=== PATIENT | female | born 1980 | race Caucasian/White ===

== ENCOUNTER 2017-09-22 08:18 | Emergency (ER) | payer OTHER ==
[~2017-09-22] VITALS: Ht 152.4 cm; Wt 69.0 kg
[~2017-09-22 08:18] MED LIST: AEROCHAMBER MA1 EACH MISC; BACTRIM DS TAB1 EACH PO; BIAXIN500 MG PO; CEPHALEXIN500 MG PO; CLINDAMYCIN HC150 MG PO; CYCLOBENZAPRINE10 MG PO; DOXYCYCLINE HY100 MG PO; GUAIATUSSIN AC10 ML PO; IBUPROFEN PM C1 EACH PO; IBUPROFEN400 MG PO; IPRAT-ALBUT 0.5-3 ML INH; KEFLEX500 MG PO; MOTRIN IB200 MG PO; NAPROXEN500 MG PO; NORCO 5-325 TA1 EACH PO; TYLENOL325 MG PO; ULTRAM50 MG PO; VENTOLIN HFA18 GM INH
[2017-09-22] MEDS ORDERED: NAPROSYN500 MG PO (09:47)
== END 2017-09-22 10:38 | disposition home or self-care (01) ==
LOC: ED 08:18
DX: J02.9 Acute pharyngitis, unspecified (principal); J32.9 Chronic sinusitis, unspecified; I10 Essential (primary) hypertension; F17.200 Nicotine dependence, unspecified, uncomplicated; Z98.51 Tubal ligation status; Z90.89 Acquired absence of other organs; Z90.49 Acquired absence of other specified parts of digestive tract; Z88.0 Allergy status to penicillin; Z88.8 Allergy status to other drugs, medicaments and biological substances
CPT/HCPCS: 81001; 99283; J1100

== ENCOUNTER 2018-05-29 23:38 | Emergency (ER) | payer OTHER ==
[~2018-05-29] VITALS: Ht 152.4 cm; Wt 79.4 kg
--- OUTSIDE RECORDS SUMMARY | ~2018-05-29 | XMS | Clinical Summary ---
Demographics + + + | Address | [address] | | | [place] [address] | + + + | Home Phone | | + + + | Preferred Language | Unknown | + + + | Marital Status | Single | + + + | Zoroastrianism Affiliation | NON | + + + [...] Phone | + + +---------+ + | MARLENE SHAY , | ECON | Unknown | | | HILDA | | | | + + +---------+ + | Kyle ALEJANDRA | ECON | Unknown | | + + +---------+ + Care Team Providers + +------+ + | Care Baseball Inspector Name | Role | Phone | + +------+ + | Arely Rojo MD | PP | | + +------+ + Source Comments EMERSON is fully live on both EpicCare Ambulatory and EpicCare InPatient.[facility] Allergies + + + + + + | Active Allergy | Reactions | Severity | Noted | Comments | | | | | Date | | + + + + + + | Penicillins | Edema | | 10/06/19 | | | | | | 13 | | + + + + + + Current Medications + + + +---------+------+------+-------+ | Prescription | Sig. | Disp. | Refills | Star | End | Statu | | | | | | t | Date | s | | | | | | Date | | | + + + +---------+------+------+-------+ | albuterol 90 | Inhale 2 Puffs every | | | | | Activ | | mcg/actuation [...] Take 800 mg by mouth | | | | | Activ | | Oral [...] + | Respiratory failure with hypoxia (HCC) | 10/06/2012 | + + + Social History + +-------+ +--------+------+ | Tobacco Use | Types | Packs/Day | Years | Date | | | | | Used | | + +-------+ +--------+------+ | Current Every Day | | | | | | Smoker | | | | | + +-------+ +--------+------+ + + +---------+ + | Alcohol Use | Drinks/We | oz/Week | Comments | | | ek | | | + + +---------+ + | No | | | | + + +---------+ + + + + | Sex Assigned at | Date Recorded | | | | + + + | Not on file | | + + + Last Filed Vital Signs + + + + | Vital Sign | Reading | Time Taken | + + + + | Blood Pressure | 157/92 | 10/12/2012 1:28 PM PST | + + + + | Pulse | 71 | 10/12/2012 1:28 PM PST | + + + + | Temperature | 36.9 C (98.4 F) | 10/12/2012 8:08 AM PST | + + + + | Respiratory Rate | 18 | 10/12/2012 8:08 AM PST | + + + + | Oxygen Saturation | 95% | 10/12/2012 1:28 PM PST | + + + + | Inhaled Oxygen | - | - | | Concentration | | | + + + + | Weight | 84.2 kg (185 lb 10 | 10/08/2012 4:26 PM PST | | | oz) | | + + + + | Height | 162.6 cm (5' 4.02") | 10/06/2012 4:49 PM PST | + + + + | Body Mass Index | 31.85 | 10/08/2012 4:26 PM PST | + + + + Plan of Treatment + + + + + | Health Maintenance | Due Date | Last Done | Comments | + + + + + | INFLUENZA VACCINE | | | | | (FLU SHOT) | 8 | | | + + + + + Results Not on filefrom Last 3 Months Insurance + +--------+ +--------+-------+---------+ | Payer | Benefi | Subscriber | Type | Phone | Address | | | t Plan | ID | | | | | | / | | | | | | | Group | | | | | + +--------+ +--------+-------+---------+ | MILIEU TECHNICIAN MEDICAID | MILIEU TECHNICIAN | xxxxxxxx | Medica | | | | | [place] | | id | | | | | [place] | | | | | + +--------+ +--------+-------+---------+ + +--------+ +--------+ + + | Guarantor Name | Accoun | Relation to | Date | Phone | Billing Address | | | t Type | Patient | of | | | | | | | | | | + +--------+ +--------+ + + | IMANI EPSTEIN | Person | Self | [birth year] | Home: | [address] | | | al/Fam | | 1979 | +1-- | [place] [address] | | | meli | | | [address] | | + +--------+ +--------+ + + | IMANI EPSTEIN | Global | Self | [birth year] | Home: | [address] | | | OB | | 1979 | [phone]- | [place] [address] | | | | | | [address] | | + +--------+ +--------+ + +
--- OUTSIDE RECORDS SUMMARY | ~2018-05-29 | XMS | Clinical Summary ---
Demographics + + + | Address | [address] | | | [place] [address] | + + + | Home Phone | | + + + | Preferred Language | Unknown | + + + | Marital Status | Single | + + + | Christian Affiliation | NON | + + + [...] Team Providers + +------+ + | Care Impregnator And Drier Helper Name | Role | Phone | + +------+ + | Arely Rojo MD | PP | | + +------+ + Source Comments EMERSON is fully live on both EpicCare Ambulatory and EpicCare InPatient.[facility] Allergies + + + + + [...] | | | + +--------+ +--------+-------+---------+ | [employer] CAP[employer] POWER PLANT OPERATOR MEDICAID | [employer] CAPTURE POWER PLANT OPERATOR | xxxxxxxx | Medica | | | [...] | 1979 | +1-- | [place] [address] | | | meli | | | [address] | | + +--------+ +--------+ + + | IMANI EPSTEIN | Global | Self | [birth year] | Home: | [address] | | | OB | | 1979 | [phone] | [place] [address] | | | | | | [address] | | + +--------+ +--------+ + +
[~2018-05-29 23:38] MED LIST changes: +LISINOPRIL-HCT1 EAC1 PO; +NAPROSYN500 MG PO
--- OUTSIDE RECORDS SUMMARY | 2018-05-29 23:42 | XMS ---
PreManage Notification: CHARISSA ROSARIO Security Power Brake Operator Events No recent Security Events currently on file CRITERIA MET - Group Notification - [facility] - 2 Visits in 30 Days CARE PROVIDERS Obed Sotomayor MD Primary Care Current PHONE: [phone] [place] has no Care Guidelines for this patient. EPerlita VISIT COUNT (12 MO.) 3 [facility] TOTAL 3 NOTE: Visits indicate total known visits. ED/UCC VISIT TRACKING (12 MO.) 05/29/2018 23:38 [facility] [place] TYPE: Emergency COMPLAINT: - L FOOT PAIN 05/25/2018 23:39 [facility] [place] TYPE: Emergency COMPLAINT: - COUGH DIAGNOSES: - Allergy status to penicillin - Acute bronchitis, unspecified - Cough - Other long term care pharmacist (current) drug therapy - Heart failure, unspecified - Nicotine dependence, cigarettes, uncomplicated - Hypertensive heart disease with heart failure - Allergy status to other drugs, medicaments and biological substances status 09/22/2017 08:19 [facility] [place] TYPE: Emergency COMPLAINT: - COUGH/SORE THROAT DIAGNOSES: - Tubal ligation status - Acquired absence of other specified parts of digestive tract - Acquired absence of other organs - Essential (primary) hypertension - Allergy status to other drugs, medicaments and biological substances status - Acute pharyngitis, unspecified - Allergy status to penicillin - Chronic sinusitis, unspecified - Nicotine dependence, unspecified, uncomplicated INPATIENT VISIT TRACKING (12 MO.) No inpatient visits to display in this time frame [email or web address]
[2018-05-30] MEDS ORDERED: CEPHALEXIN500 MG PO (00:16)
== END 2018-05-30 00:33 | disposition home or self-care (01) ==
LOC: ED 23:38
DX: S91.332A Puncture wound without foreign body, left foot, initial encounter (principal); F17.200 Nicotine dependence, unspecified, uncomplicated; Z88.0 Allergy status to penicillin; Z88.8 Allergy status to other drugs, medicaments and biological substances; Z79.899 Other long term (current) drug therapy; Z23 Encounter for immunization; W22.09XA Striking against other stationary object, initial encounter
CPT/HCPCS: 73630; 90471; 90715; 99283

== ENCOUNTER 2018-11-20 22:33 | Emergency (ER) | payer OTHER ==
[~2018-11-20] VITALS: Ht 152.4 cm; Wt 90.7 kg
--- OUTSIDE RECORDS SUMMARY | 2018-11-20 22:36 | XMS ---
PreManage Notification: CHARISSA ROSARIO Security Lead Generation Specialist Events No recent Security Events currently on file CRITERIA MET - Group Notification CARE PROVIDERS CORNELIUS FARFAN Physician Academic Intern 05/30/2018-Current PHONE: [phone] Obed Sotomayor MD Primary Care Current PHONE: [phone] [place] has no Care Guidelines for this patient. EPerlita VISIT COUNT (12 MO.) 3 [facility] TOTAL 3 NOTE: Visits indicate total known visits. ED/UCC VISIT TRACKING (12 MO.) 11/20/2018 22:34 [facility] [place] TYPE: Emergency COMPLAINT: - EXTREMITY PAIN/INJURY 05/29/2018 23:38 [facility] [place] TYPE: Emergency COMPLAINT: - L FOOT PAIN,INJURY DIAGNOSES: - Unspecified injury of left foot, initial encounter - Striking against other stationary object, initial encounter - Encounter for immunization - Other long term care pharmacist (current) drug therapy - Puncture wound without foreign body, left foot, initial encounter - Allergy status to other drugs, medicaments and biological substances status - Nicotine dependence, unspecified, uncomplicated - Allergy status to penicillin 05/25/2018 23:[address] [facility] [place] TYPE: Emergency COMPLAINT: - COUGH DIAGNOSES: - Allergy status to penicillin - Acute bronchitis, unspecified - Cough - Other fpc (current) drug therapy - Heart failure, unspecified - Nicotine dependence, cigarettes, uncomplicated - Hypertensive heart disease with heart failure - Allergy status to other drugs, medicaments and biological substances status INPATIENT VISIT TRACKING (12 MO.) No inpatient visits to display in this time frame [id number]
[2018-11-20] MEDS ORDERED: NORCO 5-325 TA1 EACH PO (22:51)
[2018-11-20] MEDS ORDERED: CRUTCH1 EACH (22:54)
== END 2018-11-21 00:05 | disposition home or self-care (01) ==
LOC: ED 22:33
PROC: 2W3QX1Z Immobilization of Right Lower Leg using Splint (ICD-10-PCS; principal; 2018-11-20)
DX: S82.851A Displaced trimalleolar fracture of right lower leg, initial encounter for closed fracture (principal); I11.0 Hypertensive heart disease with heart failure; I50.9 Heart failure, unspecified; F17.200 Nicotine dependence, unspecified, uncomplicated; Z88.0 Allergy status to penicillin; Z88.8 Allergy status to other drugs, medicaments and biological substances; Z79.899 Other long term (current) drug therapy; W00.0XXA Fall on same level due to ice and snow, initial encounter; Y92.59 Other trade areas as the place of occurrence of the external cause
CPT/HCPCS: 29515; 73610; 99283-25; J1170

== ENCOUNTER 2018-11-27 10:25 | Day surgery (SDC) | payer OTHER ==
[~2018-11-27] VITALS: Ht 152.4 cm; Wt 90.7 kg
--- NOTE | ~2018-11-27 | OR ---
[facility] [address], [place] [address] Draft DATE OF OPERATION: 11/27/2018 SURGEON: Josiah Montiel MD PREOPERATIVE DIAGNOSIS: Trimalleolar ankle fracture. POSTOPERATIVE DIAGNOSIS: Trimalleolar ankle fracture. PROCEDURE PERFORMED: Open reduction internal fixation, right bimalleolar ankle fracture. MANAGEMENT ADVISOR: CLOVIS Smiley. Staci was present, critical for all portions of procedure. ANESTHESIA: General. BLOOD LOSS: Minimal. TOURNIQUET TIME: 50 minutes. IMPLANTS: A 7-hole one-third tubular plate with seven screws on the lateral side and 1.6 mm K-wire on the medial side. BRIEF HISTORY: Charissa is a 38-year-old female suffered a ground level fall fracturing her ankle with a slight dislocation. She had a posterior malleolus fracture that was about 15% of the surface area. Risks and benefits of operative treatment discussed with her. Because of the instability and prior dislocation, I have advised this to be the best course. She elected to proceed. Once consent was obtained, she was taken to the operating room. After adequate anesthesia, she was placed on operating room table. All downside pressure points well padded. The right leg was placed in well-padded proximal thigh tourniquet and then prepped and draped in a standard sterile fashion. The leg was exsanguinated and tourniquet inflated to 250 mmHg. The lateral side was approached 1st PATIENT NAME: CHARISSA ROSARIO JAY OPERATIVE REPORT DATE OF : 82 REPORT #: [id number] PHYSICIAN: JOSIAH MONTIEL MD PCP: NO PRIMARY CARE PHYSICIAN REPORT IS CONFIDENTIAL AND NOT TO BE RELEASED WITHOUT AUTHORIZATION [facility] [address] [place], [place] [address] Draft through a 3-inch incision, carried through skin and subcutaneous tissue. The periosteum was incised longitudinally and elevated anteriorly and posteriorly. The fracture was cleaned of all debris and was reduced and held with a clamp. A single screw was placed anterior to posterior using standard AO lag technique. The clamp was removed. The 7-hole plate was then fashioned to fit the lateral side and held with two screws in the middle portion. This checked using image intensifier, found to be satisfactorily placed. The remaining screw holes were drilled and appropriate length screws were placed. A single locking screw was placed distally. The 2nd hole from the bottom was then able to be drilled secondary to being right over the interfragmentary screw. The construct was quite stable. The wound was copiously irrigated with antibiotic solution, closed with 2-0 Monocryl in layers and lauren. Medial side was then approached through a longitudinal incision. This was again carried through the skin and subcutaneous tissue and periosteum was incised. This was a very small fragment that was reduced using the dental pick. It was held in position and 1.6 mm K-wire was advanced from the tip of the malleolus into the body of the tibia. This was checked using image intensifier and found to be adequately reduced. The K-wire was cut and bent. It was not a big enough fragment, I felt like we get screw on. The wound was again copiously irrigated with antibiotic solution, closed with 2-0 Monocryl and lauren. Radiographs showed good reduction of the fracture and appropriate length of screws. The posterior malleolus fracture was not felt to be big enough to warrant a screw and was well reduced. Both wounds were dressed with Mepilex, Ag dressing, ABD and Vernon wrap. She was placed back in a fracture boot, taken to the recovery room in satisfactory condition. All sponge, needle, and instrument counts were correct. Josiah Montiel MD BA/BRITTNEYL /[id number] Copies: ~ PATIENT NAME: CHARISSA ROSARIO OPERATIVE REPORT DATE OF : 82 REPORT #: [id number] PHYSICIAN: JOSIAH MONTIEL MD PCP: NO PRIMARY CARE PHYSICIAN REPORT IS CONFIDENTIAL AND NOT TO BE RELEASED WITHOUT AUTHORIZATION
[~2018-11-27 10:25] MED LIST changes: +CRUTCH1 EACH; +GABAPENTIN300 MG PO; +LISINOPRIL20 MG PO
--- NOTE | 2018-11-27 11:27 | NUR ---
THIS RN PRESENT OF SCIATIC BLOCK ON RIGHT LEG. PATIENT TOLERATES THE BLOCK WELL. CALL LIGHT W/IN REACH. FAMILY @ BEDSIDE.
[2018-11-27] MEDS ORDERED: SENNA LAX8.6 MG PO (13:12)
[2018-11-27] MEDS ORDERED: NORCO 7.5-3251 EACH PO (13:13)
--- NOTE | 2018-11-27 13:19 | NUR ---
11/27/18 1319 Magy Solorzano 1309- PT ARRIVES TO PACU ALERT. PT REPORTS NO PAIN OR NAUSEA AT THIS TIME. PT IS UNABLE TO FEEL HER TOES AT THIS TIME. RESP EVEN AND UNLABORED. OXYGEN SAT HIGH 90'S ON RA. 1314- PT SIPPING ON WATER. TOLERATING WELL. 1318- PT IS SLEEPING. RESP 16 EVEN AND UNLABORED.
--- NOTE | 2018-11-27 13:41 | NUR ---
ICED WATER GIVEN. FAMILY @ BS. CALL LIGHT W/IN REACH.
--- NOTE | 2018-11-27 14:19 | NUR ---
LE 1345: DIETARY CALLED AND CHEESEBURGER AND FRIES ORDERED. 1415: DIETARY ARRIVES WITH PATIENT'S FOOD. PATIENT SITTING UP IN BED EATING.
[2018-11-27] MEDS ORDERED: NARCAN4 MG NAS (14:26)
--- NOTE | 2018-11-27 15:58 | NUR ---
PATIENT AND FRIEND ASLEEP. PATIENT WAKES TO RN VOICE. PATIENT REPORTS FEET ARE STILL NUMB. PATIENT DENIES ADDITIONAL NEEDS @ THIS TIME.
--- NOTE | 2018-11-27 17:30 | NUR ---
38YR OLD WOMAN ADMITTED FROM RECOVERY TO ROOM 109. PT ALERT, STATES SHE HAS NO FEELING IN R LEG. C/O TINGLING IN L FOOT ALSO. R ANKLE REPOSITIONED AND ICE TO BRACE. ORIENTED TO CALL LIGHT. ASKED FOR DINNER. CHEESEBURGER ORDERED FROM KITCHEN. CRACKERS AND ICE WATER GIVEN. ORDERS NOTED, V/S TAKEN.
--- NOTE | 2018-11-27 18:08 | NUR ---
TWO PERSON ASSIST UP TO BSC TO TRY TO VOID, UNABLE TO VOID YET, NO WT TO R FOOT, INSTRUCTED ON USE OF FWW. REQUESTED TO SIT UP IN RECLINER, R ANKLE ELEVATED WITH PILLOWS, OXYCODONE GIVEN FOR 5/10 PAIN, TINGLING IN L FOOT GONE. NO NAUSEA, ARGUEING WITH SIGNIFICANT OTHER IN ROOM. CRYING ASKING FOR HER MOTHER. BOYFRIEND EATING SANDWICH AND IGNORING HER, SAYS SHE IS ACTING LIKE A BABY. ASKED FOR THEM TO CALM DOWN. BOYFRIEND SAYS HE WILL GO HOME AND HAVE HER MOTHER COME BACK.
--- NOTE | 2018-11-27 18:20 | NUR ---
PT EATING DINNER, DENIES ANY NAUSEA, STATES SHE MIGHT HAVE TO VOID SOON, TAKING FLUIDS WELL, RATES PAIN 5/10. KEEPING R ANKLE ELEVATED.
--- NOTE | 2018-11-27 18:55 | NUR ---
PT ABLE TO STAND AND PIVOT USING WALKER WITH ONE PERSON ASSIST TO BSC. VOIDED 600ML YELLOW URINE. PIVOT BACK TO WC, VERBALIZES UNDERSTANDING OF TOE TOUCH ONLY TO F FOOT. TO KEEP R ANKLE/LEG ELEVATED WITH ICE PACKS, REVIEWED S/SX TO REPORT TO MD AND FOLLOWUP APPOINTMENT, VERBALIZES UNDERSTANDING, ALSO HAS PERSCRIPTION FOR PAIN MEDICATION, REVIEWED INSTRUCTIONS FOR TAKING PAIN MEDICATION, DISCHARGED HOME WITH BOYFRIEND AT THIS TIME. WC TO FRONT OF HOSPITAL. A PERSONAL FRIEND IS COMING TO PICK THEM UP.
== END 2018-11-27 18:55 | disposition home or self-care (01) ==
LOC: OPS 10:25 → DS 10:25 → OPS 12:00 → MS 17:25 → OPS 18:55
PROVIDERS: Specialist
PROC: 0QSG04Z Reposition Right Tibia with Internal Fixation Device, Open Approach (ICD-10-PCS; 2018-11-27)
PROC: 0QSJ04Z Reposition Right Fibula with Internal Fixation Device, Open Approach (ICD-10-PCS; principal; 2018-11-27 12:00)
DX: S82.851A Displaced trimalleolar fracture of right lower leg, initial encounter for closed fracture (principal); Z79.899 Other long term (current) drug therapy
CPT/HCPCS: 01480; 64445; 73600; 76942; C1713; J0690; J1100; J1885; J2250; J2405; J2704; J2795; J3010; J7120

== ENCOUNTER 2019-02-21 11:24 | Emergency (ER) | payer OTHER ==
[~2019-02-21] VITALS: Ht 152.4 cm; Wt 90.7 kg
--- OUTSIDE RECORDS SUMMARY | ~2019-02-21 | XMS | Encounter Summary ---
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 Medications acetaminophen (aka TYLENOL) tablet 325-650 mg, 325-650 mg, Oral, Q4H PRN albuterol (aka PROVENTIL, VENTOLIN) 90 mcg/actuation inhaler 4 Puff, 4 Puff, Inhalation, Q4 H PRN bisacodyl (aka DULCOLAX) suppository 10 mg, 10 mg, Rectal, BID PRN ciprofloxacin (aka CIPRO) tablet 500 mg, 500 mg, Oral, BID clindamycin (aka CLEOCIN) capsule 300 mg, 300 mg, Oral, Q6H heparin injection 5,000 Units, 5,000 Units, Subcutaneous, Q8H hydrALAZINE (aka APRESOLINE) tablet 10 mg, 10 mg, Oral, QID PRN labetalol (aka NORMODYNE) oral dose 150 mg, 150 mg, Oral, Q6H lisinopril (aka PRINIVIL) tablet 10 mg, 10 mg, Oral, DAILY menthol-zinc oxide (aka CALAZIME) topical paste, , Topical, QID PRN oxyCODONE (immediate release) (aka ROXICODONE) tablet 5 mg, 5 mg, Oral, Q4H PRN senna-docusate (aka SENOKOT S) 8.6-50 mg 1 Tab, 1 Tab, Oral, BID zolpidem (aka AMBIEN) tablet 5 mg, 5 mg, Oral, HS PRN ObjectiveGeneral: A&O. Smiling, talking fast, very cheerful Abdomen: Soft. Obese. Non-tender. section scar is healing well without erythema ex udate. Musculoskeletal: Normal. Extremities: 2+ edema in LE bilaterally. Left arm with sutures in place from thrombectomy; no exudate or fluctuance but mild erythema. RE with distal 1+ edema. Labs CBC with diff last 72 hours (or 3 results) Recent Labs Basename 10/10/12 0612 10/09/12 0751 10/08/12 0247 WBC 8.0 9.0 10.8 HB 8.9* 9.0* 8.5* HCT 27.2* 27.3* 25.8* PLT 439* 424* 414* Assessment and Plan: Kendall Rosario is a 32 y.o. on POD#17 s/p RCS @35 weeks for pre-eclampsia. co urse complicated by septic thrombophlebitis of the left cephalic vein s/p thrombectomy, foll owed by respiratory distress requiring transfer to [facility], and intubation and ventilation . Medical history includes a hx of IVDU and bipolar disorder. Hypertension was noted at the time of respiratory distress, and this required management with labetalol and nicardipine dr santana. Given concern for ongoing preeclampsia she was started on magnesium sulfate, and has sin ce completed 24 hours of this treatment. HTN with Severe Preeclampsia: - S/p Magnesium sulfate infusion 1g/hr x 24 hours for seizure prophylaxis - Responding well to diuresis - Antihypertensives per Medicine team, recommended goal <150/90 - Would suggest reviewing prior records for evidence of chronic HTN - Recommend workup for other sources of hypertension, including FT4/TSH, MIAH, urine metanep hrines (realizing that pheochromocytoma is unlikely). Unlikely to be from adrenal causes wit h normal lytes. - Recommend thrombophilia workup, waiting 12 weeks for protein C and S Contraception: IUD contraindicated due to recent sepsis. Implant not ideal given thrombophl ebitis and inflammation of upper extremities. Patient desires permanent contraception and si gned an OHP consent on 09/25. Discussed safe to receive depo provera despite blood clot in ar m. Will give later today. -Will discuss interval BTL, will inbasket for family planning visit. Disposition: OB team will continue to follow Present at Rounds: Attending: Loreto Resident: Zheng Jackie Hammonds MD - 10/10/2012 3:09 PM PST OB CONSULT NOTEDate: 10/10/2012 ID: 32 y.o. on POD#16 s/p RCS @35 weeks for pre-eclampsia in [place]. cour se complicated by septic thrombophlebitis of the left cephalic vein s/p thrombectomy, follow ed by respiratory distress requiring transfer to [facility], and intubation and ventilation. Medical history includes a hx of IVDU and bipolar disorder. Hypertension was noted at the ti me of respiratory distress, and given concern for ongoing preeclampsia she was started on ma gnesium sulfate, and has since completed 24 hours of this treatment. Interval events: Received lisinopril 2.5mg and lasix 20 IV yesterday - BPs overall improved Transitioned to PO antibiotics (cipro and clindamycin) No headache or vision changes Would like to be discharged Reiterates her desire for a tubal ligation. Signed OHP form on September 25 at the hospital , not in clinic. Current Medications acetaminophen (aka TYLENOL) tablet 325-650 mg, 325-650 mg, Oral, Q4H PRN bisacodyl (aka DULCOLAX) suppository 10 mg, 10 mg, Rectal, BID PRN ciprofloxacin (aka CIPRO) tablet 500 mg, 500 mg, Oral, BID clindamycin (aka CLEOCIN) capsule 300 mg, 300 mg, Oral, Q6H heparin injection 5,000 Units, 5,000 Units, Subcutaneous, Q8H hydrALAZINE (aka APRESOLINE) tablet 10 mg, 10 mg, Oral, QID PRN labetalol (aka NORMODYNE) oral dose 150 mg, 150 mg, Oral, Q6H lisinopril (aka PRINIVIL) tablet 10 mg, 10 mg, Oral, DAILY menthol-zinc oxide (aka CALAZIME) topical paste, , Topical, QID PRN oxyCODONE (immediate release) (aka ROXICODONE) tablet 5 mg, 5 mg, Oral, Q4H PRN senna-docusate (aka SENOKOT S) 8.6-50 mg 1 Tab, 1 Tab, Oral, BID zolpidem (aka AMBIEN) tablet 5 mg, 5 mg, Oral, HS PRN Objective Systolic (24hrs), Av mmHg, Min:142 mmHg, Max:172 mmHg Diastolic (24hrs), Av mmHg, Min:74 mmHg, Max:138 mmHg Pulse Av.4 Min: 68 Max: 78 Temp Av.7 C (98.1 F) Min: 36.2 C (97.2 F) Max: 37 C (98.6 F) Resp Av.4 Min: 16 Max: 18 SpO2 Av % Min: 95 % Max: 99 % Intake/Output Summary (Last 24 hours) at 10/10/12 1510 Last data filed at 10/10/12 1100 Gross per 24 hour Intake 1310 ml Output 1600 ml Net -290 ml General: A&O. Smiling, talkative. Heart: Regular rate. No murmur, gallops, rubs. Abdomen: Soft. Obese. Non-tender. section scar is healing well without erythema ex udate. Musculoskeletal: Normal. Extremities: 2+ edema in LE bilaterally. Left arm with sutures in place from thrombectomy; no exudate or fluctuance but mild erythema. RE with distal 1+ edema. Labs CBC with diff last 72 hours (or 3 results) Recent Labs Basename 10/10/12 0612 10/09/12 0751 10/08/12 0247 WBC 8.0 9.0 10.8 HB 8.9* 9.0* 8.5* HCT 27.2* 27.3* 25.8* PLT 439* 424* 414* Assessment and Plan: Kendall Rosario is a 32 y.o. on POD#16 s/p RCS @35 weeks for pre-eclampsia. co urse complicated by septic thrombophlebitis of the left cephalic vein s/p thrombectomy, foll owed by respiratory distress requiring transfer to [facility], and intubation and ventilation . Medical history includes a hx of IVDU and bipolar disorder. Hypertension was noted at the time of respiratory distress, and this required management with labetalol and nicardipine dr santana. Given concern for ongoing preeclampsia she was started on magnesium sulfate, and has sin ce completed 24 hours of this treatment. HTN with Severe Preeclampsia: - S/p Magnesium sulfate infusion 1g/hr x 24 hours for seizure prophylaxis - Responding well to diuresis - Antihypertensives per Medicine team, recommended goal <150/90 - Would suggest reviewing prior records for evidence of chronic HTN - Recommend workup for other sources of hypertension, including FT4/TSH, MIAH, urine metanep hrines (realizing that pheochromocytoma is unlikely). Unlikely to be from adrenal causes wit h normal lytes. - Recommend thrombophilia workup, waiting 12 weeks for protein C and S Contraception: IUD contraindicated due to recent sepsis. Implant not ideal given thrombophl ebitis and inflammation of upper extremities. Patient desires permanent contraception and si gned an [facility] consent on 09/25. -Patient agreeable today for depo-provera prior to discharge. Category 2 per CDC medical el igibility criteria for well-controlled HTN, however Category 3 (risks generally outweigh mary efits) for >160/110. If patient continues along current BP trajectory this should be safe, h owever if BPs remain significantly elevated will need to have further discussion regarding t his plan. -Will discuss interval BTL with Family Planning team Disposition: OB team will continue to follow Present at Rounds: Attending: Eugenia Parnell Resident: Lainey Herrera Magy Mahoney MD - 0 10/10/2012 11:02 AM PST General Internal Medicine 4 Progress Note Hospital day 4 24 Hour Events: - Added lisinopril 2.5mg daily for BP control - Diuresis with 20mg furosemide - Transitioned to PO Abx: cipro + clinda - BP control improving; last hydralazine 6pm 10/09 - Social work consult provided pt with options for rehab facilities in [facility] Current Symptoms: Pt states that she is feeling better overall. Her LE edema has improved, as has the swellin g and redness of her RUE. She is ambulating well. No respiratory complaints. The pt reports that she is interested in entering rehab in the [place] area in an effort to regain custody of her children. Physical Examination: Last 24 hour min/max Temp: 36.2 C (97.2 F) Temp Min: 36.2 C (97.2 F) Max: 36.9 C (98.4 F) Pulse: 68 Pulse Min: 68 Max: 78 Resp: 16 Resp Min: 16 Max: 18 BP: 143/87 mmHg BP Min: 140/90 Max: 172/101 SpO2: 96 % SpO2 Min: 95 % Max: 99 % Body mass index is 31.85 kg/(m^2). Date 10/10/12 07 - 10/11/12 0659 Shift 6983-2688 5701-4161 [id number] 24 Hour Total I N T A K E P.O. 700 700 Shift Total 700 700 O U T P U T Shift Total Weight (kg) 84.2 84.2 84.2 84.2 General: Obese woman sitting comfortably in bed, NAD Lungs: Upper lung garcia clear, lower garcia with decreased air movement but no crackles at bases Heart: S1+, S2+, RRR, no M/R/G Abd: Obese, normoactive bowel sounds, soft, NT/ND Ext: RUE edema improving and not erythematous with no palpable cord, not tender LE edema 1+ to mid-garces on L and slightly worse 1+ to knee on R Laboratory: Chemistries: Last 72 Hours (or 3 results): Recent Labs Basename 10/10/12 0611 10/09/12 0751 10/08/12 0247 NA 143 141 141 K 3.7 3.9 3.8 CL 108 107 106 BICARB 27 25 27 BUN 9 10 8 CR 0.50* 0.72 0.50* GLU 107* 114* 101* CA 8.4* 8.5* 7.9* MG 1.6* 1.7* 2.5 PO4 -- -- -- CBC with diff last 72 hours (or 3 results) Recent Labs Basename 10/10/12 0612 10/09/12 0751 10/08/12 0247 WBC 8.0 9.0 10.8 HB 8.9* 9.0* 8.5* HCT 27.2* 27.3* 25.8* PLT 439* 424* 414* NEUTROPERC -- -- -- BANDPCT -- -- -- LYMPHPERC -- -- -- MONOPERC -- -- -- BASOPERC -- -- -- EOSPERC -- -- -- Brief Summary: Ms. Rosario is a young woman with a PMH significant for pre-eclampsia, IVDU, who was transfer red to the [facility] for acute respiratory failure likely 2/2 pre-eclampsia related hyperten sive emergency in the setting of recent delivery by and septic thrombophlebitis, n ow extubated and on PO antihypertensives. Assessment and Plan # Hypertensive emergency/ pre-eclampsia: Pt presented with hypoxic respiratory failure like ly 2/2 flash pulmonary edema in the setting of hypertension likely related to pre-eclampsia. Symptoms now improving with good pO2. However, she is still hypertensive and required 1 dos e hydralazine in the past 24h control SBP< 150 on oral agents. Lisinopril added yesterday an d will up-titrate. Given the patient's history of methamphetamine use, a beta brit may no t be the best long-term treatment option. - Continue labetalol 300mg Q6h, hydralazine 10mg PRN - Increase lisinopril to 10mg, re-check BMP in AM - Goal SBP< 150 - Furosemide 20mg PO today # Hypoxic Respiratory Failure: Extubated. Now resolved. Likely hypertensive emergency as ab ove. # Septic Thrombophlebitis: Pt seen in ICU by EGS s/p thrombectomy at OSH 10/01. Retention english tures remvoed 10/07. Recommended wet to dry BID. Appreciate surgery following. Given pt's poo r access, she was transitioned to PO therapy yesterday with cipro + clinda to finish course. - OSH blood Cx- 10/01= No growth 10/03= No growth - Clindamycin 300mg Q6h, Cipro 500mg BID (stop date10/15) - Abx hx: Vanc+bactrim (?); vanc+cefepime (10/01-10/05); flagyl+aztreonam+vanc (10/06-) # R arm swelling: Likely 2/2 IV infiltration earlier this hospitalization. Concern for redc urrant phlebitis, but improving on exam. Will continue to monitor. # Volume overload: Pt still with LE edema. Was diuresed with lasix with some improvement on exam. Will given another dose today, and this will likely improve with time as pre-eclampsi a resolves. This patient was staffed with Dr. Sanders who agrees with the assessment and plan. Magy Saleem Internal Medicine PGY-1 P: [id number] arrisMeenakshi erickson MD - 10/10/2012 8:54 AM PST GM 4 Staff I personally interviewed the patient, performed the rosales elements of the physical examinatio n, and personally formulated the assessment and plan with the resident. See Dr Saleem's notes f or details. Ms. Rosario is a 32 yo female with history IVDU and recent pre-eclampsia s/p presrhoda trinh in transfer with hypoxic respiratory failure, suspect pre-eclampsia vs pulmonary edema. She is a chronic methamphetamine abuser, homeless, from [place]. She is now wanting to leave the hospital and go "live with clean friends" She also said 'I have a few case therapist' We advised she makes a plan to get an interview / intake for inpatient rehab today for [facility] PE Last Vitals: BP 143/87 | Pulse 68 | Temp 36.2 C (97.2 F) | RR 16 | Ht 1.626 m (5' 4.02" ) | Wt 84.2 kg (185 lb 10 oz) | SpO2 96% | BMI 31.85 kg/(m^2) 24 Hour Vital Min/Max: Systolic (24hrs), Av mmHg, Min:140 mmHg, Max:172 mmHg Diastolic (24hrs), Av mmHg, Min:74 mmHg, Max:118 mmHg Pulse Min: 68 Max: 78 Temp Min: 36.2 C (97.2 F) Max: 36.9 C (98.4 F) Resp Min: 16 Max: 18 SpO2 Min: 95 % Max: 99 % Intake/Output Summary (Last 24 hours) at 10/10/12 1101 Last data filed at 10/10/12 0626 Gross per 24 hour Intake 965 ml Output 2550 ml Net -1585 ml CV TR murmur Lungs clear Meth Mouth findings #.Preeclampsi is improved BP control. - would consolidate her BP medications, We want to ma sanchezmize adherance #Hypoxic Respiratory failure: Now resolved. Likely was a consequence of hypertensive emerge ncy but is still very volume overloaded on exam. I wonder if she has a component of cardiomy opathy. Another confounder is drug abuse. # nmc anemia -stable #septic thrombophlebitis - surgery following and on antibiotics- will change to PO clinda/c ipro today #homeless - planning on living with "friends in [place]" #3children in foster care #polysubstance addiction - we need help of social work and care management. - this patient needs to be sent go to treatment in patient immediately from hospital if she has any chance. She is aware of this. I spent over 35 min of which 50 % was care coordination and counseling. [facility] DEPARTMENT: Hosp- [phone] Place of Service: - [id number] Date of Service: 10/09/2012 CSN: [id number] Modifiers:GC Resident Involved: Yes Suggested CPT: 17165 Subsequent Visit Detailed/High complexity 35 min Jeovanny Carpenter MD - 0 10/09/2012 4:33 PM PST INPATIENT PROGRESS NOTE Hospital Day: 3 Author: JEOVANNY KUNZ MD Attending Physician: Meenakshi Sanders MD PROBLEM LIST: 1) Preeclampsia 2) Hypoxic Respiratory Failure 3) Septic Thrombophlebitis 4) Anemia 5) Methamphetamine Use 6) Unstable Social Situation ASSESSMENT and PLAN: Kendall Rosario is a 32 y.o. Female who is transferred from [facility] with severe pre-eclamps ia characterized by malignant hypertension with evidence of end-organ damage (proteinuria) a nd acute pulmonary edema. # Severe Preeclampsia/Hypertensive Emergency: Suspect this is resolving appropriately. Bloo d pressures are now in a more stable range though still elevated. Would like to trial a low dose KENTRELL-I given her current proteinuria and may transition off of BB; she is not breast fee ding, which would - Start Lisinopril 2.5mg - Continue Labetolol 300mg # Acute Heart Failure presentation: Suspected to be biventricular given pulmonary edema and dependent edema of the extremities. Edema resolving and responsive to diuretics. Kaitlin montgomery was thought to be hypertensive emergency, but wonder if she had a predisposition by way of an existing peripartum cardiomyopathy. Arguing against this is an ECHO with a preserved EF, a normal LVID of 4.8 and no regional wall motion abnormalities. We will check a thyroid fun ction test to rule this out, but drugs would be above any rheumatologic or other causes of C M. - Lasix 20mg PRN - Strict I/Os - Avoid severe hypertension # Hypoxic Respiratory Failure: Extubated. Now resolved. Likely hypertensive emergency as ab ove. # Septic Thrombophlebitis: Healing well according to EGS. May transition to oral antibiotic s. Has a PCN allergy and so will change her to Cipro and Clinda. Will need to get her wound education tomorrow. # R arm swelling: Stable. Likely 2/2 IV infiltration earlier this hospitalization. No palpa ble cords. Afebrile. Will continue to monitor. Can use warm compresses PRN. # Volume overload: Pt still with LE edema. Was diuresed with lasix earlier this hospitaliza tion though improvement questionable. Will consider additional diuresis, but will likely imp rove with time as pre-eclampsia resolves. # Contraception: # Dispo: Will need social work assistance Code Status: Full Code My Assessment and Plan were discussed with my Attending, Dr. Sanders who agrees with the jocelyn borrego. Jeovanny Kunz MD Internal Medicine, PGY-3 Pager [phone] Interval Events: - No dyspnea currently. Lower extremity edema is better than admission but still present. H aving frequent urination but not all of it is being collected as she is making frequent trip s off the unit. Last Vitals: BP 160/99 | Pulse 78 | Temp 36.9 C (98.4 F) | RR 18 | Ht 1.626 m (5' 4.02") | Wt 84.2 k g (185 lb 10 oz) | SpO2 98% | BMI 31.85 kg/(m^2) FIO2 (%): 40 fraction of O2 (10/07/12 0739) O2 Delivery Device: None (room air) (10/09/12 0656) 24 Hour Vital Min/Max: Systolic (24hrs), Av mmHg, Min:140 mmHg, Max:216 mmHg Diastolic (24hrs), Av mmHg, Min:75 mmHg, Max:112 mmHg Pulse Av.5 Min: 73 Max: 107 Temp Av.8 C (98.3 F) Min: 36.7 C (98.1 F) Max: 36.9 C (98.4 F) Resp Av Min: 18 Max: 18 SpO2 Av.4 % Min: 94 % Max: 98 % Intake/Output Summary (Last 24 hours) at 10/09/12 1633 Last data filed at 10/09/12 1400 Gross per 24 hour Intake 1225 ml Output 2800 ml Net -1575 ml Gen: Obese, NAD HEENT: MMM, EOMI, no pallor Neck: JVP at the clavicle upright CV: Normal rate, regular rhythm; S1/S2 present; no murmurs, gallops, or rubs Resp: CTA bilaterally with equal breath sounds Abd: Protuberant, Normoactive bowel sounds; soft, non-tender, non-distended; no hepato or s plenomegaly; no masses palpated; no rebound or guarding Ext: Warm, good distal pulses, 1+ LE edema, left arm freshly wrapped with no active drainag e Skin: No breakdown, rashes, or lesions acetaminophen (aka TYLENOL) tablet 325-650 mg, 325-650 mg, Oral, Q4H PRN albuterol (aka PROVENTIL, VENTOLIN) 90 mcg/actuation inhaler 2 Puff, 2 Puff, Inhalation, Q6 H aztreonam (aka AZACTAM) IV 2 g, 2 g, Intravenous, Q6H bisacodyl (aka DULCOLAX) suppository 10 mg, 10 mg, Rectal, BID PRN heparin injection 5,000 Units, 5,000 Units, Subcutaneous, Q8H hydrALAZINE (aka APRESOLINE) tablet 10 mg, 10 mg, Oral, QID PRN labetalol (aka NORMODYNE) tablet 300 mg, 300 mg, Oral, Q6H menthol-zinc oxide (aka CALAZIME) topical paste, , Topical, QID PRN metroNIDAZOLE (aka FLAGYL) IV 500 mg, 500 mg, Intravenous, Q8H oxyCODONE (immediate release) (aka ROXICODONE) tablet 5 mg, 5 mg, Oral, Q4H PRN senna-docusate (aka SENOKOT S) 8.6-50 mg 1 Tab, 1 Tab, Oral, BID vancomycin (aka VANCOCIN) IV 1.25 g, 1.25 g, Intravenous, Q8H zolpidem (aka AMBIEN) tablet 5 mg, 5 mg, Oral, HS PRN DATA: -Labs Chemistries: Last 72 Hours (or 3 results): Recent Labs Basename 10/09/12 07510/08/1224610/07/12258 NA 141 141 145 K 3.9 3.8 3.7 CL 107 106 107 BICARB 25 27 30 BUN 10 8 7 CR 0.72 0.50* 0.62 CA 8.5* 7.9* 7.7* MG 1.7* 2.5 3.8* PO4 -- -- -- CBC with diff last 72 hours (or 3 results) Recent Labs Basename 10/09/1275010/08/1224610/07/12 025 WBC 9.0 10.8 12.0* HB 9.0* 8.5* 9.0* HCT 27.3* 25.8* 27.4* PLT 424* 414* 465* NEUTROPERC -- -- -- BANDPCT -- -- -- LYMPHPERC -- -- -- MONOPERC -- -- -- BASOPERC -- -- -- EOSPERC -- -- -- -Micro: CULTURE RESULT (no units) Date Value 10/06/2012 C Respiratory Source: Sputum Final GRAM STAIN: No squamous epithelial cells Moderate PMNS Rare Mixed leatha CULTURE RESULT: Rare Oral Leatha 10/06/2012 C Urine Source: U Midstream Final CULTURE RESULT: No growth (<1000 col/ml) after 24 hours -Imaging CXR 10/07 (post-extubation) Hydrostatic pulmonary edema with moderate right and small left pleural effusions. Meenakshi Camacho MD - 0 10/09/2012 12:54 PM PST 4 Staff I personally interviewed the patient, performed the rosales elements of the physical examinatio n, and personally formulated the assessment and plan with the resident. See Dr Saleem's notes for details. Ms. Rosario is a 32 yo female with history IVDU and recent pre-eclampsia s/p presen gayathri in transfer with hypoxic respiratory failure, suspect pre-eclampsia vs pulmonary edema. She is a chronic methamphetamine abuser, homeless, from [place]. #.Preeclampsi is improved BP control. #Hypoxic Respiratory failure: Now resolved. Likely was a consequence of hypertensive emerge ncy but is still very volume overloaded on exam. I wonder if she has a component of cardiomy opathy. Another confounder is drug abuse. # nmc anemia -stable #septic thrombophlebitis - surgery following and on antibiotics #homeless #3children in foster care #polysubstance addiction - we need help of social work and care management. - this patient needs to be sent to treatment from the hospital ideally if resources can be garnered. I spent over 35 min of which 50 % was care coordination and counseling. [facility] DEPARTMENT: Hosp- [id number] Place of Service: IP - Date of Service: 10/09/2012 CSN: [id number] Modifiers:GC Resident Involved: Yes Suggested CPT: 82618 Subsequent Visit Detailed/High complexity 35 min Jacquelyn Moses MD - 8:06 AM PST [facility] DEPARTMENT OF SURGERY EMERGENCY GENERAL SURGERY Division of Trauma and Critical Care Progress Note Note Date: 10/09/2012 Admission Date: 10/06/2012 KENDALL ROSARIO, [id number] Hospital Day #3 INTERVAL EVENTS: No acute events overnight MEDICATIONS: Reviewed PHYSICAL EXAM: Last Vitals: BP 154/100 | Pulse 107 | Temp 36.8 C (98.2 F) | RR 18 | Ht 1.626 m (5' 4.0 2") | Wt 84.2 kg (185 lb 10 oz) | SpO2 95% | BMI 31.85 kg/(m^2) 24 Hour Vital Min/Max: Systolic (24hrs), Av mmHg, Min:131 mmHg, Max:216 mmHg Diastolic (24hrs), Av mmHg, Min:76 mmHg, Max:112 mmHg Temp Av.9 C (98.4 F) Min: 36.8 C (98.2 F) Max: 37 C (98.6 F)Pulse Av.5 Min: 67 Max: 107 Resp Av Min: 14 Max: 20 SpO2 Av.6 % Min: 94 % Max: 99 % Intake/Output Summary (Last 24 hours) at 10/09/12 0806 Last data filed at 10/09/12 0600 Gross per 24 hour Intake 1420 ml Output 2175 ml Net -755 ml Gen: No acute distress Left upper extremity: longitudinal upper arm wound with packing in place, clean based, no d rainage or erythema CULTURES: None pending LABS: Recent Labs Basename 10/08/12 0910/08/1224610/07/1225810/06/12 1538 NA -- 141 145 141 K -- 3.8 3.7 4.1 CL -- 106 107 107 BICARB -- 27 30 29 BUN -- 8 7 8 CR -- 0.50* 0.62 0.53* GLU -- 101* 128* 88 CA -- 7.9* 7.7* 7.9* AST 33 -- -- 35 ALT 24 -- -- 44 AP 181* -- -- 228* TBILI 0.3 -- -- 0.7 TP 6.4 -- -- 6.2 ALB 2.3* -- -- 2.3* Recent Labs Basename 10/08/1224610/07/1225810/06/12201810/06/12 1538 WBC 10.8 12.0* 12.9* -- RBC 2.97* 3.14* 3.09* -- HB 8.5* 9.0* 8.8* -- HCT 25.8* 27.4* 27.0* -- PLT 414* 465* 454* -- NEUTROPERC -- -- -- 86* BANDPCT -- -- -- -- LYMPHPERC -- -- -- 8* MONOPERC -- -- -- 4 BASOPERC -- -- -- 0 EOSPERC -- -- -- 1 Recent Labs Basename 10/08/1292010/06/12 1538 AST 33 35 ALT 24 44 TBILI 0.3 0.7 AP 181* 228* ALB 2.3* 2.3* TP 6.4 6.2 ASSESSMENT/PLAN: Kendall Rosario is a 32 y.o. female who developed thrombophlebitis from a field IV, now s/p surgi mario debridement. Recovering well. - Continue BID wet to dry dressing changes - Antibiotics per primary team - no further surgical intervention warranted at this time - EGS will continue to follow along The patient was seen and examined with Dr. Mederos who agrees with the above assessment and p ramón. JACQUELYN RANDOLPH MD Pager [phone] [facility] [place] [address] [place] [facility] [place] [address] achaparro, MD Davon - 2012 6:12 AM PST CONSULT NOTE Date of service: 10/09/2012 ID: [id number] y.o. on POD#15 s/p Repeat Section @35 weeks for Pre-eclampsia in [facility]. course complicated by respiratory distress and septic thrombophlebitis. Patient was transferred from [place] to the [facility] MICU for acute respiratory failure requi ring intubation and ventilation. She is 2 weeks s/p section with a compli cated by pre eclampsia. Her post course was complicated by septic thrombophlebitis of the left cephalic vein s/p thrombectomy 10/01/12. Per chart review, patient is otherwise com plicated by a hx of IVDU and bipolar disorder. Unclear history as no previous records available for review at this time. Per MICU team rep ort, patient was found to have hypertension during recent admission and there was concern fo r ongoing pre eclampsia. She was started on magnesium sulfate prior to transfer to [place]. Interval Hx: Patient denies SOB/CP. She denies ESPAÑA, RUQ pain, or visual changes. Overnight events: htn Meds: Current Inpatient Medications Medication Dose Route Frequency acetaminophen (aka TYLENOL) tablet 325-650 mg 325-650 mg Oral Q4H PRN aztreonam (aka AZACTAM) IV 2 g 2 g Intravenous Q6H bisacodyl (aka DULCOLAX) suppository 10 mg 10 mg Rectal BID PRN heparin injection 5,000 Units 5,000 Units Subcutaneous Q8H HYDROmorphone (aka DILAUDID) injection 1 mg 1 mg Intravenous Q2H PRN labetalol (aka NORMODYNE) tablet 300 mg 300 mg Oral Q6H menthol-zinc oxide (aka CALAZIME) topical paste Topical QID PRN metroNIDAZOLE (aka FLAGYL) IV 500 mg 500 mg Intravenous Q8H niCARdipine in NS IV infusion 40mg/200mL piggy back 0.5-15 mg/hr Intravenous CONTINUOU S senna-docusate (aka SENOKOT S) oral solution 8.8 mg-50 mg Feeding Tube BID vancomycin (aka VANCOCIN) IV 1.25 g 1.25 g Intravenous Q8H Physical Exam: Last Vitals: BP 145/73 | Pulse 69 | Temp 36.7 C (98.1 F) | RR 11 | Ht 1.626 m (5' 4.02" ) | SpO2 95% 24 Hour Vital Min/Max: Systolic (24hrs), Av mmHg, Min:97 mmHg, Max:206 mmHg Diastolic (24hrs), Av mmHg, Min:52 mmHg, Max:138 mmHg Pulse Min: 66 Max: 84 Temp Min: 36.6 C (97.9 F) Max: 36.8 C (98.2 F) Resp Min: 8 Max: 19 SpO2 Min: 87 % Max: 100 % Intake/Output Summary (Last 24 hours) at 10/08/12 0614 Last data filed at 10/08/12 0500 Gross per 24 hour Intake 4544.5 ml Output 3075 ml Net 1469.5 ml General: Awake alert and oriented and approriate Heart: Regular rate. No murmur, gallops, rubs. Lungs: Course breath sounds. Abdomen: Soft. Obese. Non-tender. section scar is healing well without erythema ex udate. Musculoskeletal: Normal. Extremities: 2+ edema in LE bilaterally. Left arm with sutures in place from thrombectomy; no erythema or exudate. Neurological: 3+ DTR at patella, 3-6 beats of clonus on feet bilaterally. PELVIC EXAM: Deferred Labs CBC with diff last 72 hours (or 3 results) Recent Labs Basename 10/08/12 0247 10/07/12 0259 10/06/12 2019 10/06/12 1538 WBC 10.8 12.0* 12.9* -- HB 8.5* 9.0* 8.8* -- HCT 25.8* 27.4* 27.0* -- PLT 414* 465* 454* -- NEUTROPERC -- -- -- 86* BANDPCT -- -- -- -- LYMPHPERC -- -- -- 8* MONOPERC -- -- -- 4 BASOPERC -- -- -- 0 EOSPERC -- -- -- 1 Lab Results Component Value Date HCT 25.8* 10/08/2012 URICACID 4.2 10/06/2012 AST 35 10/06/2012 BUN 8 10/08/2012 CR 0.50* 10/08/2012 PLT 414* 10/08/2012 Imaging 10/06/12 X-RAY PORTABLE CHEST 1 VIEW: STUDY: IL CHEST 1 VIEW 10/06/12 15:25:00 INDICATION: Hypoxic respiratory failure COMPARISON: Outside CT and radiograph today FINDINGS: There is an ET tube approximately 2-cm from the Luke. There is an NG tube with side port at GE junction better described on same-day radiograph. There are right greater than left pleural effusions with fluid tracking along the right fissure. There is central airway thickening with mild groundglass opacities in the upper lobes. There is pulmonary vascular indistinctness bilaterally. the osseous structures are unremarkable. Cardiomediastinal silhouette is normal. IMPRESSION: Bilateral pulmonary vascular indistinctness consistent with pulmonary edema and bilateral pleural effusions. This is improved in comparison to recent radiographs. Assessment/Plan: Kendall Rosario is a 32 y.o. female admitted as a transfer from [place] for acute respi ratory distress in the context of likely pre eclampsia at 2 weeks s/p de livery. Per chart review, her course was complicated by sepsis s/p septic thrombo pheblitis of L cephalic vein s/p excision of infected vein 20-30cm. During that hospitalizat ion, the patient developed hypoxemia and HTN. She required intubation and treatment of her H TN with labetolol and nicardipine drip. Xray upon admission to [facility] shows pulmonary edema an d possible upper lobe pneumonia. TTE at outside hospital negative for cardiomyopa thy with EF 60%. Recommendations: Severe Preeclampsia: Responded well to diuresis. Suspect large component of respiratory dis tress 2/2 pulmonary edema and preeclampsia. - S/p Magnesium sulfate infusion 1g/hr x 24 hours for seizure prophylaxis due to likely sev ere pre eclampsia diagnosis - Follow clinically for signs/sx of magnesium toxicity (respiratory status, urine output, n ormal reflexes). Not necessary to check serum magnesium levels (in light of normal Cr) but a im for levels between 4-6 if obtained. - Would recommend following pre eclampsia lab set daily (Hct, plt, Cr, AST, Uric Acid). Wou ld also recommend completing a 24 hour urine protein assessment. - Defer antihypertensive management to MICU team, with recommended BP goal < 150/90 - Recommend obtaining all medical records from and delivery for review Post Issues: Contraception: Patient expresses desire for permanent contraception. Will consult family pl anning team and evaluate if patient would be good candidate for inpatient long-acting revers ible contraception option. Disposition: OB team will continue to follow this patient. Present at Rounds: Attending: Eugenia Parnell Resident: Nicolas Herrera I have examined ms rosario with Dr. Herrera and eugenia , read the note and agree with the asse ssment and plans. The majority of time for this visit, greater than 50%, was spent in couns eling and/or coordination of care secondary to delayed >2 wk post with respiratory di stress secondary to Possibly pet and hydrostatic chf with normal ef. Hx of severe pet with two prior c sections Likely chronic htn - suggest reviewing records Hx thrombophlebitis left arm Negative influenza a and b Negative cat scan for pe Normal na and k make it unlikely secondary to adrenal causes No coarctation on echo BP 150/91 | Pulse 107 | Temp 36.8 C (98.2 F) | RR 18 | Ht 1.626 m (5' 4.02") | Wt 84.2 kg (185 lb 10 oz) | SpO2 95% | BMI 31.85 kg/(m^2) Significant le edema 2+ pitting This late chf is unusual secondary to pet. Likely chronic htn component. Would suggest tfts free t4 and tsh Miah Urine metanephrines to r/o pheo (unlikely) Prothrombin, leidin v, kct, thrombophilia staley (would wait 12 weeks pp for protein c s etc) Not breast feeding and therefore suggest kentrell inhibitor, tctz or diuretic now. Desires penitentiary contraception - prior to discharge either btl or iud consideration. The majority of time for this visit, greater than 50%, was spent in counseling and/or coor dination of care secondary to bp management. The total physician floor time I spent reviewin g the chart and seeing the patient was 25 minutes. minutes. [facility] DEPARTMENT: [id number]- [facility] PERINATOLOGY PPV Place of Service:[id number] - IP Date of Service: 10/09/2012 CSN: [id number] Suggested CPT: 62308 - Subsequent, Exp Prob Foc/Mod Complex 25 min Suggested Procedure CPT: Suggested Diagnosis: Carmen Costa MD - 10/08/2012 10:22 PM PST R4 MECHANICAL MANUFACTURING TECHNICIAN Consult Note Date: 10/08/2012 Per chart review, BP 97-177/61-132 in the past 24 hours (mostly mild range). Currently on labetalol 300 mg po q 6 hrs for BP control. Pre eclampsia labs: Recent Labs Basename 10/08/12 0921 10/08/12 0247 10/07/12 0259 10/06/12201810/06/12 1831 10/06/12 153 8 WBC -- 10.8 12.0* 12.9* -- -- HB -- 8.5* 9.0* 8.8* -- -- HCT -- 25.8* 27.4* 27.0* -- -- PLT -- 414* 465* 454* -- -- AST 33 -- -- -- -- 35 URICACID -- -- -- -- 4.2 -- CR -- 0.50* 0.62 -- -- 0.53* Recommendations: - Continue labetalol for BP control with BP goal < 150/90 - Continue to follow pre eclampsia panel daily (CBC, Creatinine, Uric Acid, AST) - In terms of discharge planning, patient will likely need ongoing antihypertensive therapy at home until BP trends to normal - MFM team will see patient in the am Carmen Cunningham MD MECHANICAL MANUFACTURING TECHNICIAN PGY-4 Magy Mahoney MD - 10/08/2012 2:57 PM PST General Internal Medicine 4 Transfer Accept Note Brief Hospital Course: Ms. Rosario is a 32yo woman with a PMH significant for pre-eclampsia in 3 pregnancies, active methamphetamine use by smoking, who was transferred from [facility] for managem ent of hypoxic respiratory failure. The pt was 2 weeks post- s/p delivered e candido for pre-eclampsia. Her initial hospital course was complicated by hypertension, hyperre flexia, and proteinuria (4+). She was discharged in stable condition and then presented back to the hospital 12 hours later with acute onset of shortness of breath. She was admitted to [place] 09/28 and was found to have a L arm septic thrombophlebitis. 10/01, she was taken to the OR for thrombectomy and removal of 20cm vein. Then, 10/05, she had acute onset of hyp oxic respiratory failure which required intubation. She was transferred to [facility] for addition al care. At [facility], MFM was consulted and stated that the patient's symptoms were most consistent with severe pre-eclampsia, even in the post- period. She was treated with 24h IV Mg for se izure ppx. She was maintained on nicardipine and labetalol gtt for severe HTN treatment. For septic thrombophlebitis, the pt was first treated with vanc+cefepime (10/01- 10/05) --> flagy l+axtreonam+vanc (10/06- ). The pt's respiratory status improved and she was extubated 10/07. She was transitioned to PO labetalol with good control. Pt was stable for the floor and tra nsferred 10/08. 24 Hour Events: - Extubated - Transitioned off labtalol gtt to PO - 24 hours of Mag gtt completed - EGS consult --> LUE wound closed - Transferred to [facility] Current Symptoms: Pt states that she feels somewhat breathless and anxious, particularly regarding her phlebi tis. She is worried about swelling in her R upper arm and hand related to IV infiltration ea rlier today and reports that she has not had antibiotics since noon due to access issues. Sh e does not want her R veins to become infected as the L was. She also reports pain related t o her open L arm wound. Physical Examination: Last 24 hour min/max Temp: 36.8 C (98.2 F) Temp Min: 36 C (96.8 F) Max: 36.8 C (98.2 F) Pulse: 67 Pulse Min: 66 Max: 80 Resp: 20 Resp Min: 10 Max: 20 BP: 136/86 mmHg BP Min: 97/81 Max: 178/138 SpO2: 99 % SpO2 Min: 87 % Max: 99 % There is no weight on file to calculate BMI. General: Overweight woman, somewhat anxious, sitting up in bed, moving and breathing comfor tably Lungs: Upper lung garcia clear, lower lung garcia with decreased air movement, mild crackle s at the bases Heart: Tachycardic, regular rhythm, S1+, S2+, no m/r/g Abd: Obese, normoactive bowel sounds, soft, NT/ND Neuro: AAOx3 Ext: RUE with trace pitting edema over dorsum of hand and to elbow and with slight erythema and tenderness to palpation, LUE with large wound dressed with gauze and coban overlying english rgical site well healing, 2+ pitting edema in LE to knee R>L Laboratory: Chemistries: Last 72 Hours (or 3 results): Recent Labs Basename 10/08/12 02410/07/1225810/06/12 1538 NA 141 145 141 K 3.8 3.7 4.1 CL 106 107 107 BICARB 27 30 29 BUN 8 7 8 CR 0.50* 0.62 0.53* GLU 101* 128* 88 CA 7.9* 7.7* 7.9* MG 2.5 3.8* 1.8 PO4 -- -- 3.8 CBC with diff last 72 hours (or 3 results) Recent Labs Basename 10/08/12 02410/07/1225810/06/12201810/06/12 1538 WBC 10.8 12.0* 12.9* -- HB 8.5* 9.0* 8.8* -- HCT 25.8* 27.4* 27.0* -- PLT 414* 465* 454* -- NEUTROPERC -- -- -- 86* BANDPCT -- -- -- -- LYMPHPERC -- -- -- 8* MONOPERC -- -- -- 4 BASOPERC -- -- -- 0 EOSPERC -- -- -- 1 Brief Summary: Ms. Rosario is a young woman with a PMH significant for pre-eclampsia, IVDU, who was transfer red to the [facility] MICU for acute respiratory failure likely 2/2 pre-eclampsia related hyperten sive emergency in the setting of recent delivery by and septic thrombophlebitis, n ow extubated and on PO antihypertensives. Assessment and Plan # Hypertensive emergency/ pre-eclampsia: Pt presented with hypoxic respiratory failure like ly 2/2 flash pulmonary edema in the setting of hypertension likely related to pre-eclampsia. Symptoms now improving with good pO2 off supplemental O2, still hypertensive but with adequ ate control SBP< 150 on oral agents. Will continue oral agents as initiated in ED and antici vuong weaning down as pt's acute phase clears. - Continue labetalol 300mg Q6h, hydralazine 10mg PRN - Goal SBP< 150 # Hypoxic Respiratory Failure: Extubated. Now resolved. Likely hypertensive emergency as ab ove. # Septic Thrombophlebitis: Pt seen in ICU by EGS s/p thrombectomy at OSH 10/01. Retention english tures remvoed 10/07. Recommended wet to dry BID. Appreciate surgery following. In terms of ab x, plan per ICU was for 14d total course with possible narrowing from current vanc/flagyl/ax treonam. Will f/u cx at OSH. Access is becoming an issue in this pt, and am reticent to send her home with a PICC due to social issues, particularly drug use (17d sober from meth), tho [facility] denies IVDU. To facilitate d/c, it may be possible to transition to PO abx vs placement to complete IV abx course. - F/U OSH cx - Possible transition to PO abx vs placement for 14d course completion (10/15) - Abx hx: Vanc+bactrim (?); vanc+cefepime (10/01-10/05); flagyl+aztreonam+vanc (10/06- ) # R arm swelling: Likely 2/2 IV infiltration earlier this hospitalization, but concern for redcurrant phlebitis. Will continue to monitor. # Volume overload: Pt still with LE edema. Was diuresed with lasix earlier this hospitaliza tion though improvement questionable. Will consider additional diuresis, but will likely imp rove with time as pre-eclampsia resolves. This patient was staffed with Dr. Sanders who agrees with the assessment and plan. Magy Saleem Internal Medicine PGY-1 P: [id number] signed by Magy Saleem MD at 10/08/2012 7:56 PM PSTJeovanny Kunz MD - 10/08/2012 2:36 PM PST Brief Resident Transfer Accept Note Kendall Rosraio is a 32 y.o. Female with a history of active Methamphetamine use, prior pregnanci es complicated with pre-eclampsia, poor pre-mone nutrition, who is transferred from [facility] in [place] for management of Hypoxic Respiratory failure and pre-eclampsia following delivery of her third child on 09/22/2012. Preceding her recent delivery via c-sect ion, Kendall was experiencing her "usual" pre-eclampsia symptoms (rapid LE swelling, Headache). She tried to hold off coming in for delivery as long as possible because she admits using th e day before and was "dirty." However, eventually she was brought in for her above symptoms. Her blood pressure was as high as in the 210's systolic, she was hyper reflexive and 4+ pro teinuria. She underwent a emergent and was kept in the hospital with difficult to treat hypertension in the following days. She was discharged one week later in stable condit ion, and within 12 hours of leaving the hospital, she had acute onset dyspnea that prompted a return via ambulance. Her second hospital course was complicated by septic thrombophlebiti s of the left cephalic vein s/p thrombectomy 10/01/12. She was started on Vanc and Cefepime f rom 10/01-10/05, changed briefly to Vanc and Zozyn but due to a reported PCN allergy switch to her current regimen of Vanc and Aztreonam and Flagyl for sepsis/thrombophlebitis. .She also had an acute respiratory decline that resulted in intubation. Imaging suggested development of pulmonary edema. She was then transferred here to the [facility] ICU for management of her res piratory status and blood pressure elevation. Diuresis resolved her hypoxic failure and was extubated. She was also transitioned off of a nicardipine and labetalol drip to PO labetalol . A magnesium infusion was run and then stopped for treatment of preeclampsia. Abx changes w ere made as mentioned before. Given her stability, she has now been sent down to the wards. O: Last Vitals: BP 149/81 | Pulse 77 | Temp 37 C (98.6 F) | RR 20 | Ht 1.626 m (5' 4.02") | Wt 84.2 kg (185 lb 10 oz) | SpO2 98% | BMI 31.85 kg/(m^2) 24 Hour Vital Min/Max: Systolic (24hrs), Av mmHg, Min:97 mmHg, Max:178 mmHg Diastolic (24hrs), Av mmHg, Min:61 mmHg, Max:138 mmHg Pulse Min: 66 Max: 80 Temp Min: 36 C (96.8 F) Max: 37 C (98.6 F) Resp Min: 10 Max: 20 SpO2 Min: 87 % Max: 99 % Intake/Output Summary (Last 24 hours) at 10/08/12 1800 Last data filed at 10/08/12 1100 Gross per 24 hour Intake 3662.5 ml Output 1425 ml Net 2237.5 ml Gen: Obese, NAD HEENT: MMM, EOMI, no pallor Neck: JVP at the clavicle upright CV: Normal rate, regular rhythm; S1/S2 present; no murmurs, gallops, or rubs Resp: CTA bilaterally with equal breath sounds Abd: Protuberant, Normoactive bowel sounds; soft, non-tender, non-distended; no hepato or s plenomegaly; no masses palpated; no rebound or guarding Ext: Warm, good distal pulses, trace-1+ LE edema Skin: No breakdown, rashes, or lesions Lab Results Component Value Date WBC 10.8 10/08/2012 HB 8.5 10/08/2012 HCT 25.8 10/08/2012 PLT 414 10/08/2012 MCV 87.0 10/08/2012 RDW 15.8 10/08/2012 Lab Results Component Value Date NA 141 10/08/2012 K 3.8 10/08/2012 CL 106 10/08/2012 BICARB 27 10/08/2012 BUN 8 10/08/2012 CR 0.50 10/08/2012 GLU 101 10/08/2012 CA 7.9 10/08/2012 Assessment and Plan: Kendall Rosario is a 32 y.o. Female who is transferred from [facility] with severe pre-eclamps ia characterized by malignant hypertension with evidence of end-organ damage (proteinuria) a nd acute pulmonary edema. She has recovered appropriately and has the clinical stability to warrant transfer to the wards. Her respiratory status is stable with no continuing oxygen ne eds. Her blood pressures are at goal and under 140. She has no acute complaints and her lowe r extremity edema is improved. She has been strongly counseled to cease Methamphetamine use not withstanding the thought of future pregnancies. We anticipate a short stay as her pre-ec lampsia has now resolved and will arrange for possible discharge soon assuming we can arrang e for appropriate antibiotics (but would strongly avoid a PICC) and follow up with surgery. Rest per Dr. Saleem's transfer accept note. This patient will be staffed with Dr. Sanders in the next 24 hours. Jeovanny Kunz MD Internal Medicine Resident, PGY-3 Pager [phone] Vero Hunter MD - 10/08/2012 8:00 AM PST MICU Attg. Progress Note Overnight Events: Labetalol drip titrated off and pt started on labetalol PO, nicardipine d rip titrated off as of 6am. BPs improved. Completed Mg drip. A/P: 32F 2-3 weeks s/p for pre-eclampsia, now here with severe hypertension, hypo xic respiratory failure, consistent with pre-eclampsia. Neuro: doing well, appears at baseline. H/o bipolar disease, has been off of mood stabiliz er during . Pt reports starting on zoloft recently, but this seems not a great option for BIpolar dis ease. H/o IVDU with meth use immediately prior to delivery. CV: Pre-eclampsia, BPs under much better control on PO labetalol, now off of drips. BP goa ls < 160s. Completed Mg drip. Pulm: sats great on room air. Hypoxemia has improved with treatment of her hypertension. Repeat echo showed normal size/function, NO cardiomyopathy. ID: Afebrile, WBC coming down. Vanco/aztreonam/flagyl (PCN allergy) for sepsis/thrombophle bitis. No new culture data ([facility] for outside hospital). Needs a 14d course of broad abx, would avoid PICC line in patient with recent IVDU. Renal: Cr stable. GI/Liver: No acute issues. MFM should continue to follow upon discharge from ICU. EGS following her arm wound. Stable for transfer out of the ICU. I examined the patient myself. I have read and agree with the plan as outlined in the resi dent note. Critical Care Time = 35 min exclusive of procedures. Last Vitals: BP 156/132 | Pulse 72 | Temp 36.7 C (98.1 F) | RR 19 | Ht 1.626 m (5' 4.02 ") | SpO2 95% 24 Hour Vital Min/Max: Systolic (24hrs), Av mmHg, Min:97 mmHg, Max:199 mmHg Diastolic (24hrs), Av mmHg, Min:52 mmHg, Max:138 mmHg Pulse Min: 66 Max: 80 Temp Min: 36.6 C (97.9 F) Max: 36.8 C (98.2 F) Resp Min: 10 Max: 19 SpO2 Min: 87 % Max: 100 % Intake/Output Summary (Last 24 hours) at 10/08/12 0800 Last data filed at 10/08/12 0500 Gross per 24 hour Intake 4887.5 ml Output 2625 ml Net 2262.5 ml Current Facility-Administered Medications Medication Dose Route Frequency Provider Last Rate Last Dose acetaminophen (aka TYLENOL) tablet 325-650 mg 325-650 mg Oral Q4H PRN Darnell schultz MD,PhD 325 mg at 10/08/12 0530 aztreonam (aka AZACTAM) IV 2 g 2 g Intravenous Q6H Madelyn Watson MD 2 g at 0 10/08/12 0538 bisacodyl (aka DULCOLAX) suppository 10 mg 10 mg Rectal BID PRN Jeovanny Aguero MD heparin injection 5,000 Units 5,000 Units Subcutaneous Q8H Jeovanny Aguero MD 5,000 Units at 10/08/12 0740 HYDROmorphone (aka DILAUDID) injection 1 mg 1 mg Intravenous Q2H PRN Cezar Ray MD 1 mg at 10/08/12 0740 labetalol (aka NORMODYNE) tablet 300 mg 300 mg Oral Q6H Aj Amaro MD 300 mg at 10/08/12 0234 menthol-zinc oxide (aka CALAZIME) topical paste Topical QID PRN Jeovanny Aguero MD metroNIDAZOLE (aka FLAGYL) IV 500 mg 500 mg Intravenous Q8H Madelyn Watson MD 500 mg at 10/08/12 0740 niCARdipine in NS IV infusion 40mg/200mL piggy back 0.5-15 mg/hr Intravenous CONTINUOU S Aj Amaro MD 1 mg/hr at 10/08/12 0500 senna-docusate (aka SENOKOT S) oral solution 8.8 mg-50 mg Feeding Tube BID Jeovanny Aguero MD vancomycin (aka VANCOCIN) IV 1.25 g 1.25 g Intravenous Q8H Madelyn Watson MD 1.25 g at 10/08/12 0126 Chemistries: Last 72 Hours (or 3 results): Recent Labs Basename 10/08/12 0247 10/07/1225810/06/12 1538 NA 141 145 141 K 3.8 3.7 4.1 CL 106 107 107 BICARB 27 30 29 BUN 8 7 8 CR 0.50* 0.62 0.53* GLU 101* 128* 88 CA 7.9* 7.7* 7.9* MG 2.5 3.8* 1.8 PO4 -- -- 3.8 CBC with diff last 72 hours (or 3 results) Recent Labs Basename 10/08/12 02410/07/12 02510/06/12201810/06/12 1538 WBC 10.8 12.0* 12.9* -- HB 8.5* 9.0* 8.8* -- HCT 25.8* 27.4* 27.0* -- PLT 414* 465* 454* -- NEUTROPERC -- -- -- 86* BANDPCT -- -- -- -- LYMPHPERC -- -- -- 8* MONOPERC -- -- -- 4 BASOPERC -- -- -- 0 EOSPERC -- -- -- 1 Liver Tests: Last 72 hours (or 3 results) Recent Labs Basename 10/06/12 1538 AST 35 ALT 44 TBILI 0.7 AP 228* ALB 2.3* TP 6.2 Up to Last 5 ABGs in 72 hours: Recent Labs Basename 10/06/12 1824 10/06/12 1538 PH 7.39 7.37 PCO2 49* 52* PO2 84 51* HCO3 29* 29* [id number] 30* 31* [id number] 96.9 83.7* [id number] -- -- FIO2 .4 .5 Lab Results Component Value Date INRPT 1.07 10/06/2012 Lab Results Component Value Date LACTICACID 0.8 10/06/2012 No Data Recorded Last Last CBG's POC Lab Results Component Value Date GLU 101* 10/08/2012 GLU 128* 10/07/2012 GLU 88 10/06/2012 CXR * 10/07/2012 Value: STUDY: CHEST 1 VIEW 10/07/12 06:03:00 COMPARISON: Chest x-ray one view 10/06/2012 HISTORY: Hypoxic respiratory failure FINDINGS: An endotracheal tube tip now terminate s 4.5 cm proximal to the luke within the trachea. An enteric tube tip terminates beneath the diaphragm and outside the [id number]. A mild groundglass opacification the lungs wit h vascular indistinctness and septal lines is present. Moderate volume layering right and s mall left pleural effusions are evident. The cardia mediastinal silhouette is unchanged. R egional osseous structures are unremarkable. IMPRESSION: Hydrostatic pulmonary edema wit h moderate right and small left pleural effusions. Attending Radiologists: Willian doherty M.D. Author: Ezio Prabhakar M.D. I have personally viewed this procedure/exam, reviewed this report, and made changes to it where appropriate. Final/Electronically signed / Willian Mcghee 10/07/2012 14:21 PM [facility] DEPARTMENT: [facility], [facility]- [id number] Place of Service: Date of Service: 10/08/2012 CSN: [id number] Modifiers:GC Resident Involved: yes Suggested CPT: 54983 Critical Care, Initial 30-74 minutes Cristi Landis, [facility] J - 10/08/2012 7:19 AM PST . MICU PROGRESS NOTE AND TRANSFER SUMMARY Author: MADELYN WATSON MD Attending Physician: Vero Galarza MD PCP: Kiana Rojo MD HOSPITAL COURSE: Ms. Rosario is a 32 yo female with history of IVDU, bipolar II and 2 weeks post s/p C- section for pre-eclampsia transferred from [place] in [place] for management of hypoxi c respiratory failure requiring intubation on 10/06. Ms. Rosario was admitted to [place] ([place]) on 09/28 for respiratory distress. She was noted to develop septic thrombophelitis and was taken to the OR on 10/01 for thrombectomy in which 20cm of vein was resected. Before the surgery she had been on Bactrim and Vanc for an unspecified amount of time and cultures from the wound have not grown a bug. Overnight on 10/05 she experienced acute hypoxic respira tory failure over the course of a couple hours necessitating intubation. Transferring team c oncerned about congestive heart failure and concerned about an aspiration event. She was diu resed with Lasix though no clear outcome or improvement noted. She had severe hypertension t hat was being treated with a nicardipine and labetolol drip. Upon arrival to the MICU on 10/06, pt was only on propofol gtt but required nicardipine and labetalol to be restarted over the course of the night. MFM was consulted and agreed that s evere pre-eclampsia was the most likely diagnosis, even post-. They recommended a 24 h our magnesium infusion for seizure prophylaxis which was completed. She was able to be extub ated on 10/07 after control of blood pressure and minimal diuresis. ETT on 10/07 showed a norm al LV EF and size leading us to conclude hypoxic respiratory failure was secondary to hypert ensive emergency in the setting of pre-eclampsia. She was able to be titrated off the anti-h ypertensives drips with the addition of labetalol po. The patient was also seen by EGS for wound closure. They removed her retention sutures on 10/07 and continue to actively following the patient. Antibiotic choice continued to be broad with lack of culture data to guide narrowing. Patient initially received Vanc/Cefepime from 10/01 - 10/05. On arrival on 10/06 she was switched to Vanc/Zosyn before it was noted that she had a reported penicillin allergy. She did not have any allergic reaction noted but was swi tched to Flagyl/Aztreonam. The plan is for a total 14 day course and could be narrowed to gr am positive coverage if there is no concern of retained placenta. 24hr events: -Extubated -Transitioned off labtalol gtt to PO -24 hours of Mag gtt completed -EGS consult --> LUE wound closed Subjective: -Feels good "would go home if you told me too". Interested in Current drips: -none Antibiotics: Vanc Flagyl Aztreonam Current facility-administered medications:acetaminophen (aka TYLENOL) tablet 325-650 mg, 32 5-650 mg, Oral, Q4H PRN, Darnell Bee MD,PhD, 325 mg at 10/08/12 0530 aztreonam (aka AZACTAM) IV 2 g, 2 g, Intravenous, Q6H, Madelyn Watson MD, 2 g at 0538 bisacodyl (aka DULCOLAX) suppository 10 mg, 10 mg, Rectal, BID PRN, Jeovanny Aguero MD heparin injection 5,000 Units, 5,000 Units, Subcutaneous, Q8H, Jeovanny Aguero MD, 5,000 Units a t 10/07/12 2339 HYDROmorphone (aka DILAUDID) injection 1 mg, 1 mg, Intravenous, Q2H PRN, Cezar Ray MD, 1 mg at 10/08/12 0301 labetalol (aka NORMODYNE) tablet 300 mg, 300 mg, Oral, Q6H, Aj Amaro MD, 300 mg a t 10/08/12 0234 menthol-zinc oxide (aka CALAZIME) topical paste, , Topical, QID PRN, Jeovanny Aguero MD metroNIDAZOLE (aka FLAGYL) IV 500 mg, 500 mg, Intravenous, Q8H, Madelyn Watson MD, 5 00 mg at 10/07/12 2339 niCARdipine in NS IV infusion 40mg/200mL piggy back, 0.5-15 mg/hr, Intravenous, CONTINUOUS, Aj Amaro MD, 1 mg/hr at 10/08/12 0500 senna-docusate (aka SENOKOT S) oral solution 8.8 mg-50 mg, , Feeding Tube, BID, Jeovanny Aguero MD vancomycin (aka VANCOCIN) IV 1.25 g, 1.25 g, Intravenous, Q8H, Madelyn Watson MD, 1. 25 g at 10/08/12 0126 Allergies Allergen Reactions Penicillins Swelling Physical Exam: BP 156/132 | Pulse 72 | Temp 36.7 C (98.1 F) | RR 19 | Ht 1.626 m (5' 4.02") | SpO2 95% Systolic (24hrs), Av mmHg, Min:97 mmHg, Max:206 mmHg Diastolic (24hrs), Av mmHg, Min:52 mmHg, Max:138 mmHg Pulse Av.5 Min: 66 Max: 80 Temp Av.7 C (98.1 F) Min: 36.6 C (97.9 F) Max: 36.8 C (98.2 F) Resp Av.4 Min: 9 Max: 19 SpO2 Av.5 % Min: 87 % Max: 100 % Intake/Output Summary (Last 24 hours) at 10/08/12 0719 Last data filed at 10/08/12 0500 Gross per 24 hour Intake 4464.5 ml Output 2750 ml Net 1714.5 ml Last Hemodynamic Values- 24 hours (Caution: data from last value documented in flowsheet row, may not be from concurrent read ings) BP Mean: 138 mmHg (10/08/12 0645) Last Ventilator Settings:24 hours (Caution: data from last value documented in flowsheet row, may not be from concurrent time s) FIO2 (%): 40 fraction of O2 (10/07/12 07) Total Rate: 12 bpm (10/07/12738) Spon VT: 600 ml (10/07/12738) VE: 6 L/MIN (10/07/12738) PSV: 5 cm H2O (10/07/12738) PEEP: 5 cm H2O (10/07/12738) RSBI at 5 min: 24 (10/07/12738) SBT pass or fail: Pass SBT, ready for extubation (10/07/12738) General Appearance: awake alert, pressured speech, pleasant HEENT:sclera anicteric, poor dentition Respiratory: clear Cardiovascular: RRR, no m/r/g Gastrointestinal: soft, nt, nd, bs +, obese, scar looks c/d/i Extremitites: wwp, no edema, no clubbing, distal pulses intact L arm wrapped, C/D/I Skin: no rash Intravascular Catheters: PIV x1 Data: Chemistries: Last 72 Hours (or 3 results): Recent Labs Basename 10/08/1224610/07/1225810/06/12 1538 NA 141 145 141 K 3.8 3.7 4.1 CL 106 107 107 BICARB 27 30 29 BUN 8 7 8 CR 0.50* 0.62 0.53* CA 7.9* 7.7* 7.9* MG 2.5 3.8* 1.8 PO4 -- -- 3.8 CBC with diff last 72 hours (or 3 results) Recent Labs Basename 10/08/1224610/07/1225810/06/12201810/06/12 1538 WBC 10.8 12.0* 12.9* -- HB 8.5* 9.0* 8.8* -- HCT 25.8* 27.4* 27.0* -- PLT 414* 465* 454* -- NEUTROPERC -- -- -- 86* BANDPCT -- -- -- -- LYMPHPERC -- -- -- 8* MONOPERC -- -- -- 4 BASOPERC -- -- -- 0 EOSPERC -- -- -- 1 Liver Tests: Last 72 hours (or 3 results) Recent Labs Basename 10/06/12 1538 AST 35 ALT 44 TBILI 0.7 AP 228* ALB 2.3* TP 6.2 Lab Results Component Value Date INRPT 1.07 10/06/2012 Up to Last 5 ABGs in 72 hours: Recent Labs Basename 10/06/12 1824 10/06/12 1538 PH 7.39 7.37 PCO2 49* 52* PO2 84 51* HCO3 29* 29* [id number] 30* 31* Q8QCKZKO 96.9 83.7* F4IMLNMNP -- -- FIO2 .4 .5 CULTURE DATA: Outside culture(updated 10/07): bCx 10/01 and 10/03. NGTD IMAGING: No new imaging Assessment: Ms. Rosario is a 32 yo female with history IVDU and recent pre-eclampsia s/p presen gayathri in transfer with hypoxic respiratory failure, suspect pre-eclampsia vs pulmonary edema Plan by system: Neuro: #Sedation/pain: off at this time. Will continue dilaudid boluses prn #Bipolar: Home meds, per records available, only appears to be on zoloft. Hesitate to fill this without a mood stabilizer. Will clarify with patient or her pharmacy what her meds are . She reports seeing "Artur Garcia" in [place], her [facility]HP though was not able to Google him. W ill need to clarify CV: Pre-eclampsia: Much improved BP control. Have asked MFM for input reagarding natural histor y of post pre-e and usual BP management. -s/p Magnesium gtt x24 hours -MFM consult, appreciate recs -Goal SBP <150 -Labetolol 300mg PO Q6H Pulm: #Hypoxic Respiratory failure: Now resolved. Likely was a consequence of hypertensive emerge ncy. GI: #previous concern of UGIB: based on output from NGT. No evidence of bleeding based on CBC. NGT output appears more bilious, will stop PPI and frequent CBC checks. -CBC daily Renal: No acute issues Hem: #anemia: normocytic. Not a critical issue at this time. #leukocytosis: see ID ID: #Septic thrombophlebitis: Treating as above. Source looks to be controlled. Transitioned to Vanc/Aztreonam/Flagyl. At admission, before allergies were verified, she did receive one do se of Zosyn, which she is listed as allergic to penicillins. Pt was examined and there was n o obvious reaction noted. No treatment of allergic reaction needed. -PLanned treatement course from 10/01 - 10/15. Abx choices as discussed in transfer summary -follow up outside cultures Fluid/Electrolytes/Nutrition: #Volume overload: Resolved. Endo: #No acute issues Skin: #No acute issues F - NPO A - dilaudid S - n/a T - Heparin SQ H - n/a U - n/a G - N/a Dispo: Transfer to floor CODE: Full Pt was staffed with MICU Attending, Dr. Galarza, who agrees with the above A/P. MADELYN WATSON MD Internal Medicine PGY1 Pager [phone] Vero Cuello MD - 10/08/2012 2:27 AM PSTI saw the patient on rounds and agree with the assesment and plan as outlined in this note and participated in the planning of the patient's care. Vero Mederos MD [id number] Mario Huffman MD - 10/08/2012 2:27 AM PST EMERGENCY GENERAL SURGERY ICU PROGRESS NOTE: Attending Physician: Vero Galarza MD 10/08/2012 24 HR EVENTS: Sutures in LUE removed by EGS at bedside and wound packed. Patient reports she is doing we ll and feels hungry. ACTIVE PROBLEMS AND PLAN: Kendall Rosario is a 32 y.o. female who developed thrombophlebitis from a field IV, now s/p surgi mario debridement. EGS consulted for wound care. - Continue BID wet to dry dressing changes, MICU RNs are assisting with this and their help is greatly appreciated - Antibiotics per primary team - Dispo: per MICU team The above plan is formulated from the data below MEDICATIONS: Current facility-administered medications:acetaminophen (aka TYLENOL) tablet 325-650 mg, 32 5-650 mg, Oral, Q4H PRN, Darnell Bee MD,PhD aztreonam (aka AZACTAM) IV 2 g, 2 g, Intravenous, Q6H, Madelyn Watson MD, 2 g at 2339 bisacodyl (aka DULCOLAX) suppository 10 mg, 10 mg, Rectal, BID PRN, Jeovanny Aguero MD heparin injection 5,000 Units, 5,000 Units, Subcutaneous, Q8H, Jeovanny Aguero MD, 5,000 Units a t 10/07/12 2339 HYDROmorphone (aka DILAUDID) injection 1 mg, 1 mg, Intravenous, Q2H PRN, Cezar Ray MD, 1 mg at 10/07/12 2255 labetalol (aka NORMODYNE) tablet 300 mg, 300 mg, Oral, Q6H, Aj Amaro MD menthol-zinc oxide (aka CALAZIME) topical paste, , Topical, QID PRN, Jeovanny Aguero MD metroNIDAZOLE (aka FLAGYL) IV 500 mg, 500 mg, Intravenous, Q8H, Madelyn Watson MD, 5 00 mg at 10/07/12 2339 niCARdipine in NS IV infusion 40mg/200mL piggy back, 0.5-15 mg/hr, Intravenous, CONTINUOUS, Aj Amaro MD, Last Rate: 25 mL/hr at 10/08/12 0200, 5 mg/hr at 10/08/12 0200 senna-docusate (aka SENOKOT S) oral solution 8.8 mg-50 mg, , Feeding Tube, BID, Jeovanny Aguero MD vancomycin (aka VANCOCIN) IV 1.25 g, 1.25 g, Intravenous, Q8H, Madelyn Watson MD, 1. 25 g at 10/08/12 0126 VITAL SIGNS: Pulse Av.6 Min: 70 Max: 98 Temp Av.9 C (98.5 F) Min: 36.6 C (97.9 F) Max: 37.8 C (100 F) Resp Av.9 Min: 8 Max: 19 SpO2 Av.9 % Min: 87 % Max: 100 % Intake/Output Summary (Last 24 hours) at 10/08/127 Last data filed at 10/08/12 0130 Gross per 24 hour Intake 4189.5 ml Output 3525 ml Net 664.5 ml VENT: Last Ventilator Settings:24 hours (Caution: data from last value documented in flowsheet row, may not be from concurrent time s) FIO2 (%): 40 fraction of O2 (10/07/12738) Total Rate: 12 bpm (10/07/12738) Spon VT: 600 ml (10/07/12738) VE: 6 L/MIN (10/07/12738) PSV: 5 cm H2O (10/07/12738) PEEP: 5 cm H2O (10/07/12738) RSBI at 5 min: 24 (10/07/12738) Proceed to 30 min SBT: Yes, proceed to 30 min SBT (10/07/12605) RSBI at 30 min: 26.67 (10/07/12605) SBT pass or fail: Pass SBT, ready for extubation (10/07/12738) Lab Results Component Value Date PH 7.39 10/06/2012 PCO2 49* 10/06/2012 PO2 84 10/06/2012 HCO3 29* 10/06/2012 FIO2 .4 10/06/2012 Lab Results Component Value Date ABGEXCESS 3.5 10/06/2012 PHYSICAL EXAM: Left upper extremity: longitudinal upper arm wound with packing in place, clean based, no d rainage or erythema LABS: Chemistries Recent Labs Basename 10/07/12 0259 10/06/12 1538 NA 145 141 K 3.7 4.1 CL 107 107 BICARB 30 29 BUN 7 8 CR 0.62 0.53* CA 7.7* 7.9* MG 3.8* 1.8 PO4 -- 3.8 AST -- 35 ALT -- 44 AP -- 228* TBILI -- 0.7 ALB -- 2.3* Lab Results Component Value Date PH 7.39 10/06/2012 PCO2 49* 10/06/2012 PO2 84 10/06/2012 HCO3 29* 10/06/2012 FIO2 .4 10/06/2012 Lab Results Component Value Date URINECOLOR Yellow 10/06/2012 URINELE Negative 10/06/2012 URINENITRITE Negative 10/06/2012 URINEUROBILI <2.0 10/06/2012 URINEPROTEIN 30.0 10/06/2012 URINEPH 5.0 10/06/2012 URINEBLOOD Negative 10/06/2012 URINEKETONES Negative 10/06/2012 URINEBILI Negative 10/06/2012 URINEGLUCOSE Negative 10/06/2012 Lab Results Component Value Date URINEAMPPHOS None 10/06/2012 URINEBACTERI None 10/06/2012 URINECAOX None 10/06/2012 URINECAST 0 10/06/2012 URINEGRANCAS 0 10/06/2012 URINEHYALINE 0 10/06/2012 URINEMUCOUS Few* 10/06/2012 URINEEPITH Few* 10/06/2012 URINEREDCELL 17* 10/06/2012 URINESQEPI None 10/06/2012 URINEPO4 None 10/06/2012 URINEWBC 6* 10/06/2012 URINEYEAST None 10/06/2012 CBC with diff Recent Labs Basename 10/07/12 0259 10/06/12201810/06/12 1538 WBC 12.0* 12.9* 12.5* HB 9.0* 8.8* 9.5* HCT 27.4* 27.0* 27.6* PLT 465* 454* 444* NEUTROPERC -- -- 86* BANDPCT -- -- -- LYMPHPERC -- -- 8* MONOPERC -- -- 4 BASOPERC -- -- 0 EOSPERC -- -- 1 CBG's Recent Labs Basename 10/07/12 0259 10/06/12 1538 GLU 128* 88 Dr. Mederos is the attending of record for this patient encounter. MARIO WHIPPLE MD Surgery Resident, R3 Diagnoses: [id number] Respiratory failure with hypoxia Brandon Fu MD - 10/08/2012 2:14 AM PST MICU Attending Note ATTESTATION: I saw and evaluated the patient at the bedside together with the MICU team. Pl ease see their note for a detailed rounding summary. I reviewed the documented findings, rel evant data, and recent imaging available. I agree with the assessment and plan as described in the resident's note with the following exceptions/additions as noted below. HPI: 32 yo woman with hx of preeclampsia with recent s/p , now in ICU for pre eclampsia and HTN. ASSESSMENT - preeclampsia: doing well on mag infusion - HTN: still requiring nicardipine infusion. Will titrate up oral BP meds to wean off of in fusion. - hypoxic resp failure: resolved with diuresis. PLAN - cont magnesium infusion - nicardipine to keep SBP <160 - increase oral BP meds - transfer to [facility] when BP stable off of infusions I have spent 33 minutes in the care and management of this patient who is critically ill. Brandon Hurtado MD Maintenance Chiefpharmacy services director Pulmonary and Critical Care Medicine [facility] DEPARTMENT: [facility]- [id number] Place of Service: - Date of Service: 10/08/2012 CSN: [id number] Modifiers:GC Resident Involved: yes Suggested CPT: 52913 Critical Care, Initial 30-74 minutes Yan Stark - 09/17 11:49 AM PSTTransthoracic echocardiogram completed. Final report to follow. Gomez camargo signed by Yan Melvin at 10/07/2012 11:49 AM Matthew Siddiqi MD - 10/07/2012 8:49 AM PSTI have personally interviewed and examined Ms. Rosario with Kiesha Velez and Javier and read the note and agree with the assessment and plans. The majority of t dean for this visit, greater than 50%, was spent in counseling and/or coordination of care se condary to post respiratory failure, severe pre-eclampsia and methamphetamine abuse. The total physician floor time I spent reviewing the chart and seeing the patient was 40 min utes - none of which was for routine post care. [facility] DEPARTMENT: [id number]- [facility] PERINATOLOGY PPV Place of Service: - Date of Service: 10/07/2012 CSN: [id number] Suggested CPT: 87223 - Subsequent, Detailed/High complex 35 min Suggested Diagnosis: respiratory failure MATTHEW GLASGOW MD [facility] [id number] [place] [address] Zuri Edmond MD - 10/07/2012 8:49 AM PSTFormatting of this note might be different from the origi nal. CONSULT NOTE Date of service: 10/07/2012 ID: [id number] y.o. on POD#13 s/p Repeat Section @35 weeks for Pre-eclampsia in [facility]. course complicated by respiratory distress and septic thrombophlebitis. Patient was transferred from [place] to the [facility] MICU for acute respiratory failure requi ring intubation and ventilation. She is approximately 2 weeks s/p section with a pr egnancy complicated by pre eclampsia. Her post course was apparently complicated by s eptic thrombophlebitis of the left cephalic vein s/p thrombectomy 10/01/12. Per chart review, patient is otherwise complicated by a hx of IVDU and bipolar disorder. Unclear history as no previous records available for review at this time. Per MICU team rep ort, patient was found to have hypertension during recent admission and there was concern fo r ongoing pre eclampsia. She was started on magnesium sulfate prior to transfer to [place]. Interval Hx: This morning patient is doing well. Immediately post extubation she was satur ating well on room air without any discomfort. Patient would like to go to a regular room o r go home. Patient denies SOB/CP. She denies ESPAÑA, RUQ pain, or visual changes. She denies history of seizures but reports having pre-eclampsia with her 2 other term deliveri es. She is interested in permanent contraception and says she would like a tubal ligation. She reports that she only went home from the hospital in [place] for 12 hours before she returned for respiratory distress. Overnight events: Patient had BP's in severe range, controlled on labetalol drip. Also had bumex diuresis with excellent diuresis and improvement in pulmonary status. Meds: Current facility-administered medications:aztreonam (aka AZACTAM) IV 2 g, 2 g, Intravenous, Q6H, Madelyn Watson MD, 2 g at 10/07/12 0631 bisacodyl (aka DULCOLAX) suppository 10 mg, 10 mg, Rectal, BID PRN, Jeovanny Aguero MD bumetanide (aka BUMEX) injection 0.5 mg, 0.5 mg, Intravenous, ONCE, Jeimy Lee heparin injection 5,000 Units, 5,000 Units, Subcutaneous, Q8H, Jeovanny Aguero MD, 5,000 Units a t 10/07/12 0021 HYDROmorphone (aka DILAUDID) injection 1 mg, 1 mg, Intravenous, Q2H PRN, Cezar Ray MD labetalol 250 mg IV infusion, 0-2 mg/min, Intravenous, CONTINUOUS, Cezar Ray MD magnesium sulfate IV infusion, 1 g/hr, Intravenous, CONTINUOUS, Madelyn Watson MD, L ast Rate: 25 mL/hr at 10/07/12 0700, 1 g/hr at 10/07/12 0700 menthol-zinc oxide (aka CALAZIME) topical paste, , Topical, QID PRN, Jeovanny Aguero MD metroNIDAZOLE (aka FLAGYL) IV 500 mg, 500 mg, Intravenous, Q8H, Madelyn Watson MD, 5 00 mg at 10/07/12 0020 niCARdipine in NS IV infusion 40mg/200mL piggy back, 0.5-15 mg/hr, Intravenous, CONTINUOUS, Madelyn Watson MD senna-docusate (aka SENOKOT S) oral solution 8.8 mg-50 mg, , Feeding Tube, BID, Jeovanny Aguero MD vancomycin (aka VANCOCIN) IV 1.25 g, 1.25 g, Intravenous, Q8H, Madelyn Watson MD, 1. 25 g at 10/07/12 0213 Physical Exam: Systolic (24hrs), Av mmHg, Min:125 mmHg, Max:194 mmHgDiastolic (24hrs), Av mmHg, M in:63 mmHg, Max:109 mmHgPulse Av.5 Min: 74 Max: 99 Temp Av.3 C (99.1 F) Min: 36.8 C (98.2 F) Max: 37.8 C (100 F) Resp Av.9 Min: 8 Max: 21 SpO2 Av % Min: 94 % Max: 100 % Intake/Output Summary (Last 24 hours) at 10/07/12 0849 Last data filed at 10/07/12 0800 Gross per 24 hour Intake 1970.79 ml Output 3000 ml Net -1029.21 ml General: Awake alert and oriented and approriate Heart: Regular rate. No murmur, gallops, rubs. Lungs: Course breath sounds. Abdomen: Soft. Obese. Non-tender. section scar is healing well without erythema ex udate. Musculoskeletal: Normal. Extremities: 2+ edema in LE bilaterally. Left arm with sutures in place from thrombectomy; no erythema or exudate. Neurological: 3+ DTR at patella, 3-6 beats of clonus on feet bilaterally. PELVIC EXAM: Deferred Labs CBC with diff last 72 hours (or 3 results) Recent Labs Basename 10/07/1225810/06/12201810/06/12 1538 WBC 12.0* 12.9* 12.5* HB 9.0* 8.8* 9.5* HCT 27.4* 27.0* 27.6* PLT 465* 454* 444* NEUTROPERC -- -- 86* BANDPCT -- -- -- LYMPHPERC -- -- 8* MONOPERC -- -- 4 BASOPERC -- -- 0 EOSPERC -- -- 1 Recent Labs Basename 10/07/1225810/06/12 1538 NA 145 141 K 3.7 4.1 CL 107 107 BICARB 30 29 BUN 7 8 CR 0.62 0.53* GLU 128* 88 CA 7.7* 7.9* AST -- 35 ALT -- 44 AP -- 228* TBILI -- 0.7 TP -- 6.2 ALB -- 2.3* Recent Labs Basename 10/07/1225810/06/12201810/06/12 1831 10/06/12 1538 WBC 12.0* 12.9* -- 12.5* HB 9.0* 8.8* -- 9.5* HCT 27.4* 27.0* -- 27.6* PLT 465* 454* -- 444* AST -- -- -- 35 URICACID -- -- 4.2 -- CR 0.62 -- -- 0.53* Imaging 10/06/12 X-RAY PORTABLE CHEST 1 VIEW: STUDY: [place] CHEST 1 VIEW 10/06/12 15:25:00 INDICATION: Hypoxic respiratory failure COMPARISON: Outside CT and radiograph today FINDINGS: There is an ET tube approximately 2-cm from the Luke. There is an NG tube with side port at GE junction better described on same-day radiograph. There are right greater than left pleural effusions with fluid tracking along the right fissure. There is central airway thickening with mild groundglass opacities in the upper lobes. There is pulmonary vascular indistinctness bilaterally. the osseous structures are unremarkable. Cardiomediastinal silhouette is normal. IMPRESSION: Bilateral pulmonary vascular indistinctness consistent with pulmonary edema and bilateral pleural effusions. This is improved in comparison to recent radiographs. Assessment/Plan: Kendall Rosario is a 32 y.o. female admitted as a transfer from [place] for acute respi ratory distress in the context of likely pre eclampsia at 2 weeks s/p de [facility]. Per chart review, her course was complicated by sepsis s/p septic thrombo pheblitis of L cephalic vein s/p excision of infected vein 20-30cm. During that hospitalizat ion, the patient developed hypoxemia and HTN. She required intubation and treatment of her H TN with labetolol and nicardipine drip. Xray upon admission to [facility] shows pulmonary edema an d possible upper lobe pneumonia. TTE at outside hospital negative for cardiomyopa thy with EF 60%. Recommendations: Severe Preeclampsia: Responded well to diuresis. Suspect large component of respiratory di stress 2/2 pulmonary edema and preeclampsia. - Magnesium sulfate infusion 1g/hr x 24 hours for seizure prophylaxis due to likely severe pre eclampsia diagnosis - Follow clinically for signs/sx of magnesium toxicity (respiratory status, urine output, n ormal reflexes). Not necessary to check serum magnesium levels (in light of normal Cr) but a im for levels between 4-6 if obtained. - Would recommend following pre eclampsia lab set daily (Hct, plt, Cr, AST, Uric Acid). Wou ld also recommend completing a 24 hour urine protein assessment. - Defer antihypertensive management to MICU team, with recommended BP goal < 150/90 - Recommend obtaining all medical records from and delivery for review Post Issues: Contraception: Patient expresses desire for permanent contraception. Will consult family p fozia team and evaluate if patient would be good candidate for inpatient long-acting rever sible contraception option. Disposition: OB team will continue to follow this patient. Present at Rounds: Attending: Sedrick Glasgow Resident: Nicolas Herrera Vero Hunter MD - 10/07/2012 7:59 AM PST MICU Attg. Progress Note Overnight Events: small coffee grounds from above, started on PPI. A/P: 32F 2-3 weeks s/p for pre-eclampsia, now here with severe hypertension, hypo xic respiratory failure, consistent with pre-eclampsia. Neuro:getting extubated this am, interactive on vent/following directions. Non-focal exam f or now. Pt has h/o bipolar and ivdu per outside records. Will follow up today. Need to determine her outpt regimen. Continue prn opiate for post-surgical arm pain. CV: Pt has had persistent hypertension, requiring nicardipine and labetalol drips as well a s magnesium for her preeclampsia. Appreciate MFM input. Titrate to SBP <=160s Pulm: Persistent patchy GGO and septal thickening. Much of this seems likely related to her severe hypertension. Gentle diuresis. ID: Flu pending, sputum/ett culture pending. Blood cultures pending. Covering Need to follow up on outside cultures. Pt is pen allergic, so covering with vanco/aztreonam /flagyl pending new cultures. Renal: Spot urine protein and 24h collection pending. Cr 0.6 wnl. Heme/Onc: HCT low but stable ~27. No further evidence of bleeding (no coffee grounds, ng aspirate is clear). I examined the patient myself. I have read and agree with the plan as outlined in the resi dent note. Critical Care Time = 35 min exclusive of procedures. Last Vitals: BP 181/93 | Pulse 76 | Temp 36.8 C (98.2 F) | RR 9 | Ht 1.626 m (5' 4.02") | SpO2 98% 24 Hour Vital Min/Max: Systolic (24hrs), Av mmHg, Min:125 mmHg, Max:194 mmHg Diastolic (24hrs), Av mmHg, Min:63 mmHg, Max:109 mmHg Pulse Min: 74 Max: 99 Temp Min: 36.8 C (98.2 F) Max: 37.8 C (100 F) Resp Min: 8 Max: 21 SpO2 Min: 94 % Max: 100 % Intake/Output Summary (Last 24 hours) at 10/07/12805 Last data filed at 10/07/12 0800 Gross per 24 hour Intake 1970.79 ml Output 3000 ml Net -1029.21 ml Last Ventilator Settings: (Caution: data from last value documented in flowsheet row, may not be from concurrent time s) FIO2 (%): 40 fraction of O2 (10/07/12738) Set Rate: 18 bpm (10/06/122047) Total Rate: 12 bpm (10/07/12738) VT SET: 330 ml (10/06/122047) Exh VT: 330 ml (10/06/122047) Spon VT: 600 ml (10/07/12738) VE: 6 L/MIN (10/07/12738) PSV: 5 cm H2O (10/07/12738) PEEP: 5 cm H2O (10/07/12738) Plat Press: 23 cm H2O (10/06/122047) PK Flow: 70 L/min (10/06/122047) Current Facility-Administered Medications Medication Dose Route Frequency Provider Last Rate Last Dose aztreonam (aka AZACTAM) IV 2 g 2 g Intravenous Q6H Madelyn Watson MD 2 g at 0 10/07/12 06 bisacodyl (aka DULCOLAX) suppository 10 mg 10 mg Rectal BID PRN Jeovanny Aguero MD chlorhexidine (aka PERIDEX) mouthwash 15 mL 15 mL Oral Q6H Jeovanny Aguero MD 15 mL at 0547 esomeprazole (aka NEXIUM) IV infusion 8 mg/hr Intravenous CONTINUOUS Madelyn osuna MD 10 mL/hr at 10/07/12 0640 8 mg/hr at 10/07/12 0640 fentaNYL citrate (PF) (aka SUBLIMAZE) injection 25-100 mcg 25-100 mcg Intravenous Q1H PRN Jeovanny Aguero MD 100 mcg at 10/07/12 0141 heparin injection 5,000 Units 5,000 Units Subcutaneous Q8H Jeovanny Aguero MD 5,000 Units at 10/07/12 0021 HYDROmorphone (aka DILAUDID) injection 1 mg 1 mg Intravenous Q2H PRN Cezar Ray MD labetalol 250 mg IV infusion 0-2 mg/min Intravenous CONTINUOUS Cezar Ray MD magnesium sulfate IV infusion 1 g/hr Intravenous CONTINUOUS Madelyn Watson MD 2 5 mL/hr at 10/07/12 0700 1 g/hr at 10/07/12 0700 menthol-zinc oxide (aka CALAZIME) topical paste Topical QID PRN Jeovanny Aguero MD metroNIDAZOLE (aka FLAGYL) IV 500 mg 500 mg Intravenous Q8H Madelyn Watson MD 500 mg at 10/07/12 0020 propofol (aka DIPRIVAN) injection 0.5-60 mcg/kg/min (Dosing Weight) Intravenous CONTIN UOUS Madelyn Watson MD 35 mcg/kg/min at 10/07/12 0600 senna-docusate (aka SENOKOT S) oral solution 8.8 mg-50 mg Feeding Tube BID Jeovanny Aguero MD vancomycin (aka VANCOCIN) IV 1.25 g 1.25 g Intravenous Q8H Madelyn Watson MD 1.25 g at 10/07/12 0213 Chemistries: Last 72 Hours (or 3 results): Recent Labs Basename 10/07/12 0259 10/06/12 1538 NA 145 141 K 3.7 4.1 CL 107 107 BICARB 30 29 BUN 7 8 CR 0.62 0.53* GLU 128* 88 CA 7.7* 7.9* MG 3.8* 1.8 PO4 -- 3.8 CBC with diff last 72 hours (or 3 results) Recent Labs Basename 10/07/12 0259 10/06/12 2019 10/06/12 1538 WBC 12.0* 12.9* 12.5* HB 9.0* 8.8* 9.5* HCT 27.4* 27.0* 27.6* PLT 465* 454* 444* NEUTROPERC -- -- 86* BANDPCT -- -- -- LYMPHPERC -- -- 8* MONOPERC -- -- 4 BASOPERC -- -- 0 EOSPERC -- -- 1 Liver Tests: Last 72 hours (or 3 results) Recent Labs Basename 10/06/12 1538 AST 35 ALT 44 TBILI 0.7 AP 228* ALB 2.3* TP 6.2 Up to Last 5 ABGs in 72 hours: Recent Labs Basename 10/06/12 1824 10/06/12 1538 PH 7.39 7.37 PCO2 49* 52* PO2 84 51* HCO3 29* 29* [id number] 30* 31* [id number] 96.9 83.7* [id number] -- -- FIO2 .4 .5 Lab Results Component Value Date INRPT 1.07 10/06/2012 Lab Results Component Value Date LACTICACID 0.8 10/06/2012 No Data Recorded Last Last CBG's POC Lab Results Component Value Date GLU 128* 10/07/2012 GLU 88 10/06/2012 CXR * 10/06/2012 Value: STUDY: IL CHEST 1 VIEW 10/06/12 15:25:00 INDICATION: Hypoxic respiratory failure COMPARISON: Outside CT and radiograph today FINDINGS: There is an ET tube approximate ly 2-cm from the Luke. There is an NG tube with side port at GE junction better described on same-day radiograph. There are right greater than left pleural effusions with fluid tr acking along the right fissure. There is central airway thickening with mild groundglass op acities in the upper lobes. There is pulmonary vascular indistinctness bilaterally. the oss eous structures are unremarkable. Cardiomediastinal silhouette is normal. IMPRESSION: B ilateral pulmonary vascular indistinctness consistent with pulmonary edema and bilateral ple ural effusions. This is improved in comparison to recent radiographs. Patchy groundglass most pronounced in the upper lobes may represent inflammatory or infectious etiology. Atte nding Radiologists: Ezio Bautista MD Author: Ezio Bautista MD I have personally viewed this procedure/exam, reviewed this report, and made changes to it where appropriate. Final/Electronically signed / Ezio Bautista 10/06/2012 17:21 PM [facility] DEPARTMENT: MICU, [facility]- [id number] Place of Service: Date of Service: 10/07/2012 CSN: [id number] Modifiers:GC Resident Involved: yes Suggested CPT: 66184 Critical Care, Initial 30-74 minutes 9 Cristi Landis, Von mcgarry yKle - 10/07/2012 6:05 AM PST . MICU PROGRESS NOTE Author: MADELYN WATSON MD Attending Physician: Vero Galarza MD PCP: Kiana Rojo MD ID: Ms. Rosario is a 32 yo female with history of IVDU, bipolar II and 2 weeks post s/p C- section for pre-eclampsia transferred for ventilatory management from [place] in [facility] on. 24hr events: -Admit to 12K -Seen by MFM team, suspect Started on Mag gtt -Cont Vanc, switched Cefepime to Metro/Aztreonam -Started on PPI gtt for concern of UGIB -Nicardipine switched for Labetolol for persistent hypertension -Off sedation, switched to pressure support, passed SBT -Diuresed with Bumex Subjective: -Feels ok, +pain in left arm and throat, asking about SO Jeovanny Current drips: -Magnesium -esomeprazole -Propofol Antibiotics: -Aztreonam -Metro -Vanc Current facility-administered medications:aztreonam (aka AZACTAM) IV 2 g, 2 g, Intravenous, Q6H, Madelyn Watson MD, 2 g at 10/07/12 0128 bisacodyl (aka DULCOLAX) suppository 10 mg, 10 mg, Rectal, BID PRN, Jeovanny Aguero MD chlorhexidine (aka PERIDEX) mouthwash 15 mL, 15 mL, Oral, Q6H, Jeovanny Aguero MD, 15 mL at 09/17 10/29 05 esomeprazole (aka NEXIUM) IV infusion, 8 mg/hr, Intravenous, CONTINUOUS, Madelyn santizo MD, Last Rate: 10 mL/hr at 10/06/122025, 8 mg/hr at 10/06/122025 fentaNYL citrate (PF) (aka SUBLIMAZE) injection 25-100 mcg, 25-100 mcg, Intravenous, Q1H IL N, Jeovanny Aguero MD, 100 mcg at 10/07/12 014 heparin injection 5,000 Units, 5,000 Units, Subcutaneous, Q8H, Jeovanny Aguero MD, 5,000 Units a t 10/07/12 002 HYDROmorphone (aka DILAUDID) injection 0.2-0.5 mg, 0.2-0.5 mg, Intravenous, Q2H PRN, Margot Bee MD,PhD, 0.25 mg at 10/07/12546 magnesium sulfate IV infusion, 1 g/hr, Intravenous, CONTINUOUS, Madelyn Watson MD, L ast Rate: 25 mL/hr at 10/07/12 0400, 1 g/hr at 10/07/12 040 menthol-zinc oxide (aka CALAZIME) topical paste, , Topical, QID PRN, Jeovanny Aguero MD metroNIDAZOLE (aka FLAGYL) IV 500 mg, 500 mg, Intravenous, Q8H, Madelyn Watson MD, 5 00 mg at 10/07/12 002 propofol (aka DIPRIVAN) injection, 0.5-60 mcg/kg/min (Dosing Weight), Intravenous, CONTINUO US, Madelyn Watson MD, Last Rate: 16.88 mL/hr at 10/07/12 0500, 35 mcg/kg/min at 09/17 10/29 050 senna-docusate (aka SENOKOT S) oral solution 8.8 mg-50 mg, , Feeding Tube, BID, Jeovanny Aguero MD vancomycin (aka VANCOCIN) IV 1.25 g, 1.25 g, Intravenous, Q8H, Madelyn Watson MD, 1. 25 g at 10/07/12212 Allergies Allergen Reactions Penicillins Swelling Physical Exam: BP 167/68 | Pulse 74 | Temp 37.8 C (100 F) | RR 10 | Ht 1.626 m (5' 4.02") | SpO2 100% Systolic (24hrs), Av mmHg, Min:125 mmHg, Max:190 mmHg Diastolic (24hrs), Av mmHg, Min:63 mmHg, Max:109 mmHg Pulse Av.8 Min: 74 Max: 99 Temp Av.4 C (99.3 F) Min: 37 C (98.6 F) Max: 37.8 C (100 F) Resp Av.8 Min: 10 Max: 21 SpO2 Av.8 % Min: 94 % Max: 100 % Intake/Output Summary (Last 24 hours) at 10/07/12 06 Last data filed at 10/07/12 0500 Gross per 24 hour Intake 1853.79 ml Output 2550 ml Net -696.21 ml Last Ventilator Settings:24 hours Set Rate: 18 bpm (10/06/122047) FIO2 (%): 40 fraction of O2 (10/07/12431) Total Rate: 15 bpm (10/07/12210) VT SET: 330 ml (10/06/122047) Exh VT: 330 ml (10/06/122047) Spon VT: 600 ml (10/07/12210) VE: 9.6 L/MIN (10/07/12210) PSV: 15 cm H2O (10/07/12210) PEEP: 8 cm H2O (10/07/12210) Plat Press: 23 cm H2O (10/06/122047) PK Flow: 70 L/min (10/06/122047) General Appearance: Awake, intubated, responds appropriately to yes or no questions, orient ed HEENT: +ET Tube Respiratory: CTAB Cardiovascular: RRR, nl s1 and s2, no m,r,g Gastrointestinal: obese, soft, nt.nd Extremities: LUE forearm ~20cm well healing incision with lauren and retention ties Skin: No rashes Neurologic: MAEW, A+Ox3, grossly non-focal Intravascular Catheters: PIV x4 ETT NGT Reddy Data: Lactate 0.8 Influenza pending Uric acid 4.2 Lab Results Component Value Date PH 7.39 10/06/2012 PCO2 49* 10/06/2012 PO2 84 10/06/2012 HCO3 29* 10/06/2012 FIO2 .4 10/06/2012 Chemistries: Last 72 Hours (or 3 results): Recent Labs Basename 10/07/12 0259 10/06/12 1538 NA 145 141 K 3.7 4.1 CL 107 107 BICARB 30 29 BUN 7 8 CR 0.62 0.53* CA 7.7* 7.9* MG 3.8* 1.8 PO4 -- 3.8 CBC with diff last 72 hours (or 3 results) Recent Labs Basename 10/07/12 02510/06/12 2019 10/06/12 1538 WBC 12.0* 12.9* 12.5* HB 9.0* 8.8* 9.5* HCT 27.4* 27.0* 27.6* PLT 465* 454* 444* NEUTROPERC -- -- 86* BANDPCT -- -- -- LYMPHPERC -- -- 8* MONOPERC -- -- 4 BASOPERC -- -- 0 EOSPERC -- -- 1 Liver Tests: Last 72 hours (or 3 results) Recent Labs Basename 10/06/12 1538 AST 35 ALT 44 TBILI 0.7 AP 228* ALB 2.3* TP 6.2 Lab Results Component Value Date INRPT 1.07 10/06/2012 Up to Last 5 ABGs in 72 hours: Recent Labs Basename 10/06/12 1824 10/06/12 1538 PH 7.39 7.37 PCO2 49* 52* PO2 84 51* HCO3 29* 29* [id number] 30* 31* R2LOWAXN 96.9 83.7* [id number] -- -- FIO2 .4 .5 CULTURE DATA: Sputum cx 10/06 TRIPP Cultures: 10/03: BCx: NGTD IMAGING: CXR 10/07: persistent bilateral GGO with R septal thickening Assessment: Ms. Rosario is a 32 yo female with history IVDU and recent pre-eclampsia s/p presen gayathri in transfer with hypoxic respiratory failure, suspect pre-eclampsia vs pulmonary edema Plan by system: Neuro: #Sedation/pain: off at this time. Will continue dilaudid boluses prn #Bipolar: Home meds, per records available, only appears to be on zoloft. Hesitate to fill this without a mood stabilizer. Will clarify with patient or her pharmacy what her meds are . CV: Tachycardia and Hypertension: DDx includes pre-eclampsia, sepsis, withdrawal (opioids? Meth ?), cardiomyopathy (post-?). Do strongly suspect pre-eclampsia, unfortunately still w aiting for urine protein studies. Don't get the sense that she is septic. Withdrawals may be contributing as she had some improvement in vitals with Fentanyl though limited. -Magnesium gtt x24 hours, follow neuro exam. -MFM consult, appreciate recs -may need A line today if remains hypertensive. -Goal <160 - Using nicardipine and labetolol gtt. Will transition Labetolol to PO once undercontrol Pulm: #Hypoxic Respiratory failure: Ddx includes Cardiogenic and non-cardiogenic pulmonary edema vs pnuemonia vs PE vs amniotic fluid emboli. Chest xray and exam consistent with volume over load but per report outside TTE showed EF of 60%. Did well with diuresis overnight, most con sistent with cardiogenic pulmonary edema. Will continue with new TTE and continue to gently diurese. -Diurese goal -1 to 2L with Bumex 0.5mg -hopefully extubate this am -TTE this am GI: #previous concern of UGIB: based on output from NGT. No evidence of bleeding based on CBC. NGT output appears more bilious, will stop PPI and frequent CBC checks. -CBC daily Renal: No acute issues Hem: #anemia: normocytic. Not a critical issue at this time. #leukocytosis: see ID ID: #Septic thrombophlebitis: Treating as above. Source looks to be controlled. Transitioned to Vanc/Aztreonam/Flagyl. At admission, before allergies were verified, she did receive one do se of Zosyn, which she is listed as allergic to penicillins. Pt was examined and there was n o obvious reaction noted. No treatment of allergic reaction needed. -Of note, was scheduled for OR closure of wound yesterday. Have asked EGS to see patient. -follow up outside cultures Fluid/Electrolytes/Nutrition: #Volume overload: as above Endo: #No acute issues Skin: #No acute issues F - NPO A - dilaudid S - n/a T - Heparin SQ H - n/a U - n/a G - N/a Dispo: Continue ICU level care CODE: Full Pt was staffed with MICU Attending, Dr. Galarza who agrees with the above A/P. MADELYN WATSON MD Internal Medicine PGY-2 Pager [phone] Francis Kaplan MD - 10/06/2012 7:04 PM PSTI have seen and examined this patient and reviewed the note d ated 10/06/[address] Rodriguez and I agree with her assessment and plan. The majority of time for this visit, greater than 50%, was spent in counseling and/or coordination of care svetlana degroot to hypertension, respiratory distress, pulmonary edema, suspected preeclampsia. [facility] physician floor time reviewing the chart and seeing the patient was 30 minutes. Start Mg SO4 for possible preeclampsia, seizure prophylaxis - check urine dip for protein and uric ac id. Discussed work up and options for treatment of hypertension with critical care team. [facility] DEPARTMENT: [id number]- [facility] PERINATOLOGY PPV Place of Service:[id number] - IP Date of Service: 10/06/2012 CSN: [id number] Suggested CPT: 36566 - Initial, Detailed; low complex 30 min Suggested Diagnosis: Respiratory distress, pulmonary edema, hypertension, possible preecla mpsia Elijah Wilhelm MD, [facility] [employer] Division of Maternal- Medicine [facility] hyanne Rodriguez MD - 10/06/2012 7:04 PM PSTM Fellow 32yo transferred from [place] to MICU with history of IVDU s/p c/section c/b PreE. Histo ry pieced together from scant records and unable to interview intubated patient. Presented to outside hospital with sepsis s/p sptic thrombopheblitis of L cephalic vein s/p excision o f infected vein 20-30cm. During that hospitalization, the patient developed hypoxemia and H TN was intubated with labetolol and nicardipine drip. Xray shows pulmonary edema and possib le upper lobe pneumonia. TTE negative for cardiomyopathy with EF 60%. Exam with c/d/i c/section incision without evidence of erythema/cellulitis, fundus difficult to feel, DTRs 3+ bilaterally with 3 beats of clonus. LFTs normal, Cr 0.55, Hct 27, plts 444, urine dip pending. Likely component of severe PreE given history of PreE at delivery with severe range BPs, hyperreflexemia, and pulmonary edema on Xray. Not consistent with PP cardiomyopa thy given normal EF but would recommend to follow. Recommend: 1. Magnesium sulfate infusion 1g/hr x 24 hours for seizure prophylaxis due to likely severe PreE diagnosis. Not necessary to check serum magnesium levels (in light of normal Cr) but aim for levels between 4-6 if obtained. 2. Anti-HTN medications to reduce afterload - from the notes it appears that the patient ma y not have custody of kids and therefore risk does not need to be addressed. Defer to primary MICU team for anti-HTNs. 3. Check uric acid and urine dip for protein followed by 24 hour urine protein and CrCl. F ollow PreE labs Cr, LFTs, Hct, Plt, uric acid daily. 4. Defer ventilator management to MICU team. 5. Defer infection management to MICU team and would continue Abx for possible infected cep halic vein excision versus pneumonia. Patient seen and examined with attending Dr. Wilhelm who agrees with the above plan. Magy Rodriguez MD Maternal Medicine Fellow Vero Hunter MD - 10/06/2012 3:00 PM PST MICU Attg. Progress Note transferred from [place] with ?septic emboli. A/P: 32F with h/o IVDU and bipolar who is 2-3 weeks s/p delivery due to pre-eclam psia, now presented to outside hospital with sepsis. Found to have septic thrombopheblitis of L cephalic vein. Taken to surgery where 20-30cm of infected thrombus was excised. Pt deve loped significant hypoxemia and was intubated. CT shows no PE, but is concerning for some a denopathy and septal thickening. Hosp course complicated by severe hypertension requiring la betalol and nicardipine drip. WBC 10-->16K with 90%PMNs and 1% bands. Plt >300, HCT 23.6, HgB 7.9. ?new ERIN, TTE negative and EF 60%. Neuro: Intubated on vent. No focal defects. CV: Hypertensive on antihypertensive drips. Will wean as tolerated, but I am concerned th at these are contributing to her pulmonary/respiratory issues (edema, hypoxia). Suspect this is pre-ecclampsia related given t. Will send uric acid in addition to labs. Consider magnes ium therapy. BP improved with propofol (started while intubated). Goal SBP <160. Patient is also septic and had recent surgery for removal of septic thrombus in cephalic v ein. Continue broad abx and broadly culture for sources other than phlebitis. No evidence of cardiomyopathy, EF at outside hospital was 60%. Pulm: Hypoxia. At risk for ARDS with her sepsis sepsis. Aim for low tidal volume ventilatio n/Lung protective strategies. Titrate PEEP/FIO2 Keeping sats >90% CT imaging interesting with septal thickening (particularly in lower lobes), some adenopat hy, and patchy nodular GGO. With her severe hypertension (in particular) the septal thickeni ng may represent volume overload, however will have to assess for other DDx. Pre-/ecclampsi a can have effects weeks post-, doubt this is amniotic fluid embolism which usually españa s a more ARDS like picture. ID: Septic thrombophlebitis, s/p surgery. Was vanco/cefepime. Vanco/zosyn here to cover hos pital acquired organisms. Broad cultures. Ett/sputum cultures. Renal: Awaiting labs. Particularly with preeclampsia. Check urine protein. Awaiting [facility] recs. I examined the patient myself. I have read and agree with the plan as outlined in the resi dent note. Critical Care Time = 35 min exclusive of procedures. Last Vitals: Pulse 87 | Ht 1.626 m (5' 4") | SpO2 98% 24 Hour Vital Min/Max: No data recorded. No data recorded. Pulse Min: 87 Max: 87 No Data Recorded No Data Recorded SpO2 Min: 98 % Max: 98 % No intake or output data in the 24 hours ending 10/06/12 1603 Current Facility-Administered Medications Medication Dose Route Frequency Provider Last Rate Last Dose bisacodyl (aka DULCOLAX) suppository 10 mg 10 mg Rectal BID PRN Jeovanny Aguero MD chlorhexidine (aka PERIDEX) mouthwash 15 mL 15 mL Oral Q6H Jeovanny Aguero MD famotidine (aka PEPCID) tablet 20 mg 20 mg Oral Q12H Jeovanny Aguero MD Or famotidine (aka PEPCID) suspension 20 mg 20 mg Feeding Tube Q12H Jeovanny Aguero MD fentaNYL citrate (PF) (aka SUBLIMAZE) injection 25-100 mcg 25-100 mcg Intravenous Q1H PRN Jeovanny Aguero MD heparin injection 5,000 Units 5,000 Units Subcutaneous Q8H Jeovanny Aguero MD menthol-zinc oxide (aka CALAZIME) topical paste Topical QID PRN Jeovanny Aguero MD niCARdipine in NS IV infusion 40mg/200mL piggy back 0.5-15 mg/hr Intravenous CONTINUOU S Jeovanny Aguero MD propofol (aka DIPRIVAN) injection senna-docusate (aka SENOKOT S) oral solution 8.8 mg-50 mg Feeding Tube BID Jeovanny Aguero MD Recent Labs Basename 10/06/12 1538 NA 141 K 4.1 CL 107 BICARB 29 BUN 8 CR 0.53* GLU 88 CA 7.9* AST 35 ALT 44 AP 228* TBILI 0.7 TP 6.2 ALB 2.3* Lab Results Component Value Date WBC 12.5 10/06/2012 HB 9.5 10/06/2012 HCT 27.6 10/06/2012 PLT 444 10/06/2012 MCV 87.6 10/06/2012 RDW 16.1 10/06/2012 [facility] DEPARTMENT: [facility] [id number] Place of Service: Date of Service: 10/06/2012 CSN: [id number] Modifiers:GIOVANNY Resident Involved: yes Suggested CPT: 69242 Critical Care, Initial 30-74 minutes documented in this encounter Plan of Treatment Not on filedocumented as of this encounter Procedures + +--------+ + + + | Procedure Name | Priori | Date/Time | Associated Diagnosis | Comments | | | ty | | | | + +--------+ + + + | CBC ONLY | Urgent | 10/11/2012 | | Results for this | | | | 7:01 AM | | procedure are in the | | | | PST | | results section. | + +--------+ + + + | BASIC METABOLIC SET | Urgent | 10/11/2012 | | Results for this | | (NA, K, CL, TCO2, | | 7:01 AM | | procedure are in the | | BUN, CR, GLU, CA) | | PST | | results section. | + +--------+ + + + | CBC ONLY | Urgent | 10/11/2012 | | Results for this | | | | 7:01 AM | | procedure are in the | | | | PST | | results section. | + +--------+ + + + | MAGNESIUM, PLASMA | Urgent | 10/11/2012 | | Results for this | | | | 7:01 AM | | procedure are in the | | | | PST | | results section. | + +--------+ + + + | CBC ONLY | Urgent | 10/10/2012 | | Results for this | | | | 6:12 AM | | procedure are in the | | | | PST | | results section. | + +--------+ + + + | CBC ONLY | Urgent | 10/10/2012 | | Results for this | | | | 6:12 AM | | procedure are in the | | | | PST | | results section. | + +--------+ + + + | BASIC METABOLIC SET | Urgent | 10/10/2012 | | Results for this | | (NA, K, CL, TCO2, | | 6:11 AM | | procedure are in the | | BUN, CR, GLU, CA) | | PST | | results section. | + +--------+ + + + | MAGNESIUM, PLASMA | Urgent | 10/10/2012 | | Results for this | | | | 6:11 AM | | procedure are in the | | | | PST | | results section. | + +--------+ + + + | PROTEIN, URINE | Routin | 10/09/2012 | | Results for this | | | e | 1:49 PM | | procedure are in the | | | | PST | | results section. | + +--------+ + + + | AST, PLASMA | Routin | 10/09/2012 | | Results for this | | | e | 9:31 AM | | procedure are in the | | | | PST | | results section. | + +--------+ + + + | URIC ACID, PLASMA | Routin | 10/09/2012 | | Results for this | | | e | 9:31 AM | | procedure are in the | | | | PST | | results section. | + +--------+ + + + | CBC ONLY | Urgent | 10/09/2012 | | Results for this | | | | 7:51 AM | | procedure are in the | | | | PST | | results section. | + +--------+ + + + | BASIC METABOLIC SET | Urgent | 10/09/2012 | | Results for this | | (NA, K, CL, TCO2, | | 7:51 AM | | procedure are in the | | BUN, CR, GLU, CA) | | PST | | results section. | + +--------+ + + + | CBC ONLY | Urgent | 10/09/2012 | | Results for this | | | | 7:51 AM | | procedure are in the | | | | PST | | results section. | + +--------+ + + + | MAGNESIUM, PLASMA | Urgent | 10/09/2012 | | Results for this | | | | 7:51 AM | | procedure are in the | | | | PST | | results section. | + +--------+ + + + | VANCOMYCIN, TROUGH | Urgent | 10/08/2012 | | Results for this | | | | 9:21 AM | | procedure are in the | | | | PST | | results section. | + +--------+ + + + | LIVER SET | Urgent | 10/08/2012 | | Results for this | | (AST,ALT,BILI | | 9:21 AM | | procedure are in the | | TOTAL,BILI | | PST | | results section. | | DIRECT,ALK | | | | | | PHOS,ALB,PROT TOTAL) | | | | | + +--------+ + + + | PROTEIN, URINE | Urgent | 10/08/2012 | | Results for this | | | | 6:00 AM | | procedure are in the | | | | PST | | results section. | + +--------+ + + + | CREATININE, URINE | Urgent | 10/08/2012 | | Results for this | | | | 6:00 AM | | procedure are in the | | | | PST | | results section. | + +--------+ + + + | CBC ONLY | Urgent | 10/08/2012 | | Results for this | | | | 2:47 AM | | procedure are in the | | | | PST | | results section. | + +--------+ + + + | BASIC METABOLIC SET | Urgent | 10/08/2012 | | Results for this | | (NA, K, CL, TCO2, | | 2:47 AM | | procedure are in the | | BUN, CR, GLU, CA) | | PST | | results section. | + +--------+ + + + | CBC ONLY | Urgent | 10/08/2012 | | Results for this | | | | 2:47 AM | | procedure are in the | | | | PST | | results section. | + +--------+ + + + | MAGNESIUM, PLASMA | Urgent | 10/08/2012 | | Results for this | | | | 2:47 AM | | procedure are in the | | | | PST | | results section. | + +--------+ + + + | X-RAY CHEST 1 VIEW | Routin | 10/07/2012 | | Results for this | | | e | 6:03 AM | | procedure are in the | | | | PST | | results section. | + +--------+ + + + | CBC ONLY | Urgent | 10/07/2012 | | Results for this | | | | 2:59 AM | | procedure are in the | | | | PST | | results section. | + +--------+ + + + | BASIC METABOLIC SET | Urgent | 10/07/2012 | | Results for this | | (NA, K, CL, TCO2, | | 2:59 AM | | procedure are in the | | BUN, CR, GLU, CA) | | PST | | results section. | + +--------+ + + + | CBC ONLY | Urgent | 10/07/2012 | | Results for this | | | | 2:59 AM | | procedure are in the | | | | PST | | results section. | + +--------+ + + + | MAGNESIUM, PLASMA | Urgent | 10/07/2012 | | Results for this | | | | 2:59 AM | | procedure are in the | | | | PST | | results section. | + +--------+ + + + | TRANSTHORACIC | Routin | 10/07/2012 | | Results for this | | ECHOCARDIOGRAM, | e | 12:00 AM | | procedure are in the | | ADULT | | PST | | results section. | + +--------+ + + + | CBC ONLY | Urgent | 10/06/2012 | | Results for this | | | | 8:19 PM | | procedure are in the | | | | PST | | results section. | + +--------+ + + + | INFLUENZA A/A2009/B | Urgent | 10/06/2012 | | Results for this | | PCR, RAPID | | 8:19 PM | | procedure are in the | | | | PST | | results section. | + +--------+ + + + | CBC ONLY | Urgent | 10/06/2012 | | Results for this | | | | 8:19 PM | | procedure are in the | | | | PST | | results section. | + +--------+ + + + | LACTATE | Urgent | 10/06/2012 | | Results for this | | | | 8:19 PM | | procedure are in the | | | | PST | | results section. | + +--------+ + + + | WES GUSMAN ONLY | Urgent | 10/06/2012 | | Results for this | | | | 6:46 PM | | procedure are in the | | | | PST | | results section. | + +--------+ + + + | URIC ACID, PLASMA | Urgent | 10/06/2012 | | Results for this | | | | 6:31 PM | | procedure are in the | | | | PST | | results section. | + +--------+ + + + | BLOOD GASES, | Urgent | 10/06/2012 | | Results for this | | ARTERIAL - LAB | | 6:24 PM | | procedure are in the | | | | PST | | results section. | + +--------+ + + + | TYPE AND SCREEN | Urgent | 10/06/2012 | | Results for this | | | | 5:40 PM | | procedure are in the | | | | PST | | results section. | + +--------+ + + + | CONFIRMATORY ABO/RH | Urgent | 10/06/2012 | | Results for this | | | | 5:38 PM | | procedure are in the | | | | PST | | results section. | + +--------+ + + + | CULTURE, SPUTUM | Urgent | 10/06/2012 | | Results for this | | | | 4:37 PM | | procedure are in the | | | | PST | | results section. | + +--------+ + + + | CBC AND AUTO DIFF | Urgent | 10/06/2012 | | Results for this | | | | 3:38 PM | | procedure are in the | | | | PST | | results section. | + +--------+ + + + | INR | Urgent | 10/06/2012 | | Results for this | | | | 3:38 PM | | procedure are in the | | | | PST | | results section. | + +--------+ + + + | CBC, WITH | Urgent | 10/06/2012 | | Results for this | | DIFFERENTIAL | | 3:38 PM | | procedure are in the | | | | PST | | results section. | + +--------+ + + + | COMPLETE METABOLIC | Urgent | 10/06/2012 | | Results for this | | SET | | 3:38 PM | | procedure are in the | | (NA,K,CL,CO2,BUN,CRE | | PST | | results section. | | AT,GLUC,CA,AST,ALT,B | | | | | | LISA TOTAL,ALK | | | | | | PHOS,ALB,PROT TOTAL) | | | | | + +--------+ + + + | ANTIBODY SCREEN | Urgent | 10/06/2012 | | Results for this | | | | 3:38 PM | | procedure are in the | | | | PST | | results section. | + +--------+ + + + | ABO & RH TYPE | Urgent | 10/06/2012 | | Results for this | | | | 3:38 PM | | procedure are in the | | | | PST | | results section. | + +--------+ + + + | PHOSPHORUS, PLASMA | Urgent | 10/06/2012 | | Results for this | | | | 3:38 PM | | procedure are in the | | | | PST | | results section. | + +--------+ + + + | BLOOD GASES, | Urgent | 10/06/2012 | | Results for this | | ARTERIAL - LAB | | 3:38 PM | | procedure are in the | | | | PST | | results section. | + +--------+ + + + | MAGNESIUM, PLASMA | Urgent | 10/06/2012 | | Results for this | | | | 3:38 PM | | procedure are in the | | | | PST | | results section. | + +--------+ + + + | UA, DIPSTICK ONLY | Urgent | 10/06/2012 | | Results for this | | | | 3:36 PM | | procedure are in the | | | | PST | | results section. | + +--------+ + + + | URINE, MICROSCOPIC | Urgent | 10/06/2012 | | Results for this | | EXAM | | 3:36 PM | | procedure are in the | | | | PST | | results section. | + +--------+ + + + | URINE SCREEN FOR | Urgent | 10/06/2012 | | Results for this | | CULTURE | | 3:36 PM | | procedure are in the | | | | PST | | results section. | + +--------+ + + + | CULTURE, URINE BACTI | Routin | 10/06/2012 | | Results for this | | | e | 3:36 PM | | procedure are in the | | | | PST | | results section. | + +--------+ + + + | X-RAY PORTABLE CHEST | Routin | 10/06/2012 | | Results for this | | 1 VIEW | e | 3:25 PM | | procedure are in the | | | | PST | | results section. | + +--------+ + + + | X-RAY ABD LTD | Routin | 10/06/2012 | | Results for this | | FEEDING TUBE EVAL | e | 3:25 PM | | procedure are in the | | | | PST | | results section. | + +--------+ + + + documented in this encounter Results CBC (10/11/2012 7:01 AM PST) + + + + + + | Component | Value | Ref Range | Performed | Pathologist | | | | | At | Signature | + + + + + + | WHITE CELL | 7.7 | 4.4 - 11.0 K/cu | [facility] | | | COUNT | | mm | LABORATORY | | | | | | SERVICES, | | | | | | CORE | | + + + + + + | RED CELL | 3.35 (L) | 4.00 - 5.20 | [facility] | | | COUNT | | M/cu mm | LABORATORY | | | | | | SERVICES, | | | | | | CORE | | + + + + + + | HEMOGLOBIN | 9.4 (L) | 12.0 - 16.0 | [facility] | | | | | g/dL | LABORATORY | | | | | | SERVICES, | | | | | | CORE | | + + + + + + | HEMATOCRIT | 29.1 (L) | 36.0 - 46.0 % | [facility] | | | | | | LABORATORY | | | | | | SERVICES, | | | | | | CORE | | + + + + + + | MCV | 87.0 | 80.0 - 96.0 fL | [facility] | | | | | | LABORATORY | | | | | | SERVICES, | | | | | | CORE | | + + + + + + | MCHC | 32.3 (L) | 33.4 - 35.5 | [facility] | | | | | g/dL | LABORATORY | | | | | | SERVICES, | | | | | | CORE | | + + + + + + | RDW | 15.6 (H) | 11.5 - 15.0 % | [facility] | | | | | | LABORATORY | | | | | | SERVICES, | | | | | | CORE | | + + + + + + | PLATELET | 452 (H) | 150 - 400 K/cu | [facility] | | | COUNT | | mm | LABORATORY | | | | | | SERVICES, | | | | | | CORE | | + + + + + + + + | Specimen | + + | Blood - Blood | + + + + + + + | Performing | Address | City/State/Zipcode | Phone Number | | Organization | | | | + + + + + | [facility] | [address] | [place] [address] | | | SERVICES, CORE | [address] | | | + + + + + MAGNESIUM, PLASMA (10/11/2012 7:01 AM PST) + +---------+ + + + | Component | Value | Ref Range | Performed | Pathologist | | | | | At | Signature | + +---------+ + + + | MAGNESIUM,P | 1.6 (L) | 1.8 - 2.5 mg/dL | [facility] | | | [facility] | | | LABORATORY | | | | | | SERVICES, | | | | | | CORE | | + +---------+ + + + + + | Specimen | + + | Blood - Blood | + + + + + + + | Performing | Address | City/State/Zipcode | Phone Number | | Organization | | | | + + + + + | [facility] | [address] | [place] [address] | | | SERVICES, CORE | [address] | | | + + + + + BASIC METABOLIC SET (NA, K, CL, TCO2, BUN, CR, GLU, CA) (10/11/2012 7:01 AM PST) + +---------+ + + + | Component | Value | Ref Range | Performed | Pathologist | | | | | At | Signature | + +---------+ + + + | GLUCOSE, | 108 (H) | 60 - 99 mg/dL | [facility] | | | PLASMA | | | LABORATORY | | | (LAB) | | | SERVICES, | | | | | | CORE | | + +---------+ + + + | BUN, PLASMA | 9 | 6 - 20 mg/dL | [facility] | | | (LAB) | | | LABORATORY | | | | | | SERVICES, | | | | | | CORE | | + +---------+ + + + | CREATININE | 0.68 | 0.60 - 1.10 | [facility] | | | PLASMA | | mg/dL | LABORATORY | | | (LAB) | | | SERVICES, | | | | | | CORE | | + +---------+ + + + | SODIUM, | 145 | 136 - 145 | [facility] | | | PLASMA | | mmol/L | LABORATORY | | | (LAB) | | | SERVICES, | | | | | | CORE | | + +---------+ + + + | POTASSIUM, | 3.7 | 3.4 - 5.0 | [facility] | | | PLASMA | | mmol/L | LABORATORY | | | (LAB) | | | SERVICES, | | | | | | CORE | | + +---------+ + + + | CHLORIDE, | 109 (H) | 97 - 108 mmol/L | [facility] | | | PLASMA | | | LABORATORY | | | (LAB) | | | SERVICES, | | | | | | CORE | | + +---------+ + + + | TOTAL CO2, | 24 | 21 - 32 mmol/L | [facility] | | | PLASMA | | | LABORATORY | | | (LAB) | | | SERVICES, | | | | | | CORE | | + +---------+ + + + | CALCIUM, | 8.7 | 8.6 - 10.2 | [facility] | | | PLASMA | | mg/dL | LABORATORY | | | (LAB) | | | SERVICES, | | | | | | CORE | | + +---------+ + + + | ANION GAP | 12 (H) | 4 - 11 mmol/L | [facility] | | | | | | LABORATORY | | | | | | SERVICES, | | | | | | CORE | | + +---------+ + + + | POTASSIUM | No Hemo | | [facility] | | | CMNT | | | LABORATORY | | | | | | SERVICES, | | | | | | CORE | | + +---------+ + + + + + | Specimen | + + | Blood - Blood | + + + + + + + | Performing | Address | City/State/Zipcode | Phone Number | | Organization | | | | + + + + + | [facility] | [address] | [place] [address] | | | SERVICES, CORE | [address] | | | + + + + + CBC (10/10/2012 6:12 AM PST) + + + + + + | Component | Value | Ref Range | Performed | Pathologist | | | | | At | Signature | + + + + + + | WHITE CELL | 8.0 | 4.4 - 11.0 K/cu | [facility] | | | COUNT | | mm | LABORATORY | | | | | | SERVICES, | | | | | | CORE | | + + + + + + | RED CELL | 3.12 (L) | 4.00 - 5.20 | [facility] | | | COUNT | | M/cu mm | LABORATORY | | | | | | SERVICES, | | | | | | CORE | | + + + + + + | HEMOGLOBIN | 8.9 (L) | 12.0 - 16.0 | [facility] | | | | | g/dL | LABORATORY | | | | | | SERVICES, | | | | | | CORE | | + + + + + + | HEMATOCRIT | 27.2 (L) | 36.0 - 46.0 % | [facility] | | | | | | LABORATORY | | | | | | SERVICES, | | | | | | CORE | | + + + + + + | MCV | 87.3 | 80.0 - 96.0 fL | [facility] | | | | | | LABORATORY | | | | | | SERVICES, | | | | | | CORE | | + + + + + + | MCHC | 32.6 (L) | 33.4 - 35.5 | [facility] | | | | | g/dL | LABORATORY | | | | | | SERVICES, | | | | | | CORE | | + + + + + + | RDW | 15.8 (H) | 11.5 - 15.0 % | [facility] | | | | | | LABORATORY | | | | | | SERVICES, | | | | | | CORE | | + + + + + + | PLATELET | 439 (H) | 150 - 400 K/cu | [facility] | | | COUNT | | mm | LABORATORY | | | | | | SERVICES, | | | | | | CORE | | + + + + + + + + | Specimen | + + | Blood - Blood | + + + + + + + | Performing | Address | City/State/Zipcode | Phone Number | | Organization | | | | + + + + + | [facility] | [address] | [place] [address] | | | SERVICES, CORE | [address] | | | + + + + + MAGNESIUM, PLASMA (10/10/2012 6:11 AM PST) + +---------+ + + + | Component | Value | Ref Range | Performed | Pathologist | | | | | At | Signature | + +---------+ + + + | MAGNESIUM,P | 1.6 (L) | 1.8 - 2.5 mg/dL | [facility] | | | LASMA | | | LABORATORY | | | | | | JEFF, | | | | | | CORE | | + +---------+ + + + + + | Specimen | + + | Blood - Blood | + + + + + + + | Performing | Address | City/State/Zipcode | Phone Number | | Organization | | | | + + + + + | [facility] | [address] | [place] [address] | | | SERVICES, CORE | [address] | | | + + + + + BASIC METABOLIC SET (NA, K, CL, TCO2, BUN, CR, GLU, CA) (10/10/2012 6:11 AM PST) + + + + + + | Component | Value | Ref Range | Performed | Pathologist | | | | | At | Signature | + + + + + + | GLUCOSE, | 107 (H) | 60 - 99 mg/dL | [facility] | | | PLASMA | | | LABORATORY | | | (LAB) | | | SERVICES, | | | | | | CORE | | + + + + + + | BUN, PLASMA | 9 | 6 - 20 mg/dL | [facility] | | | (LAB) | | | LABORATORY | | | | | | SERVICES, | | | | | | CORE | | + + + + + + | CREATININE | 0.50 (L) | 0.60 - 1.10 | [facility] | | | PLASMA | | mg/dL | LABORATORY | | | (LAB) | | | SERVICES, | | | | | | CORE | | + + + + + + | SODIUM, | 143 | 136 - 145 | [facility] | | | PLASMA | | mmol/L | LABORATORY | | | (LAB) | | | SERVICES, | | | | | | CORE | | + + + + + + | POTASSIUM, | 3.7 | 3.4 - 5.0 | [facility] | | | PLASMA | | mmol/L | LABORATORY | | | (LAB) | | | SERVICES, | | | | | | CORE | | + + + + + + | CHLORIDE, | 108 | 97 - 108 mmol/L | [facility] | | | PLASMA | | | LABORATORY | | | (LAB) | | | SERVICES, | | | | | | CORE | | + + + + + + | TOTAL CO2, | 27 | 21 - 32 mmol/L | [facility] | | | PLASMA | | | LABORATORY | | | (LAB) | | | SERVICES, | | | | | | CORE | | + + + + + + | CALCIUM, | 8.4 (L) | 8.6 - 10.2 | [facility] | | | PLASMA | | mg/dL | LABORATORY | | | (LAB) | | | SERVICES, | | | | | | CORE | | + + + + + + | ANION GAP | 8 | 4 - 11 mmol/L | [facility] | | | | | | LABORATORY | | | | | | SERVICES, | | | | | | CORE | | + + + + + + | POTASSIUM | No Hemo | | [facility] | | | CMNT | | | LABORATORY | | | | | | SERVICES, | | | | | | CORE | | + + + + + + + + | Specimen | + + | Blood - Blood | + + + + + + + | Performing | Address | City/State/Zipcode | Phone Number | | Organization | | | | + + + + + | [facility] | [address] | [place] [address] | | | SERVICES, CORE | [address] | | | + + + + + PROTEIN, URINE (10/09/2012 1:49 PM PST) + +--------+ + + + | Component | Value | Ref Range | Performed | Pathologist | | | | | At | Signature | + +--------+ + + + | PROTEIN | 49 | mg/dL | [facility] | | | CONC URINE | | | LABORATORY | | | | | | SERVICES, | | | | | | CORE | | + +--------+ + + + | URINE | Random | (none) | [facility] | | | INTERVAL | | | LABORATORY | | | | | | SERVICES, | | | | | | CORE | | + +--------+ + + + | URINE | Spot | (none) | [facility] | | | VOLUME | | | LABORATORY | | | | | | SERVICES, | | | | | | CORE | | + +--------+ + + + + + | Specimen | + + | Urine - Urine | + + + + + | Narrative | Performed At | + + + | Normal values based on 24 hour collection interval. Patient | [facility] | | results are calculated from actual collection interval and volume. | LABORATORY | | | SERVICES, CORE | + + + + + + + + | Performing | Address | City/State/Zipcode | Phone Number | | Organization | | | | + + + + + | [facility] | [address] | [place] [address] | | | SERVICES, CORE | [address] | | | + + + + + AST, PLASMA (10/09/2012 9:31 AM PST) + +---------+ + + + | Component | Value | Ref Range | Performed | Pathologist | | | | | At | Signature | + +---------+ + + + | AST(SGOT) | 12 (L) | 15 - 41 U/L | [facility] | | | | | | LABORATORY | | | | | | SERVICES, | | | | | | CORE | | + +---------+ + + + | AST CMNT | No Hemo | | [facility] | | | | | | LABORATORY | | | | | | SERVICES, | | | | | | CORE | | + +---------+ + + + + + | Specimen | + + | Blood - Blood | + + + + + + + | Performing | Address | City/State/Zipcode | Phone Number | | Organization | | | | + + + + + | [facility] | [address] | [place] [address] | | | SERVICES, CORE | [address] | | | + + + + + URIC ACID, PLASMA (10/09/2012 9:31 AM PST) + +-------+ + + + | Component | Value | Ref Range | Performed | Pathologist | | | | | At | Signature | + +-------+ + + + | URIC ACID, | 4.4 | 2.5 - 6.2 mg/dL | [facility] | | | PLASMA | | | LABORATORY | | | (LAB) | | | SERVICES, | | | | | | CORE | | + +-------+ + + + + + | Specimen | + + | Blood - Blood | + + + + + + + | Performing | Address | City/State/Zipcode | Phone Number | | Organization | | | | + + + + + | [facility] | [address] | [place] [address] | | | SERVICES, CORE | [address] | | | + + + + + CBC (10/09/2012 7:51 AM PST) + + + + + + | Component | Value | Ref Range | Performed | Pathologist | | | | | At | Signature | + + + + + + | WHITE CELL | 9.0 | 4.4 - 11.0 K/cu | [facility] | | | COUNT | | mm | LABORATORY | | | | | | SERVICES, | | | | | | CORE | | + + + + + + | RED CELL | 3.16 (L) | 4.00 - 5.20 | [facility] | | | COUNT | | M/cu mm | LABORATORY | | | | | | SERVICES, | | | | | | CORE | | + + + + + + | HEMOGLOBIN | 9.0 (L) | 12.0 - 16.0 | [facility] | | | | | g/dL | LABORATORY | | | | | | SERVICES, | | | | | | CORE | | + + + + + + | HEMATOCRIT | 27.3 (L) | 36.0 - 46.0 % | [facility] | | | | | | LABORATORY | | | | | | SERVICES, | | | | | | CORE | | + + + + + + | MCV | 86.3 | 80.0 - 96.0 fL | [facility] | | | | | | LABORATORY | | | | | | SERVICES, | | | | | | CORE | | + + + + + + | MCHC | 33.0 (L) | 33.4 - 35.5 | [facility] | | | | | g/dL | LABORATORY | | | | | | SERVICES, | | | | | | CORE | | + + + + + + | RDW | 15.9 (H) | 11.5 - 15.0 % | [facility] | | | | | | LABORATORY | | | | | | SERVICES, | | | | | | CORE | | + + + + + + | PLATELET | 424 (H) | 150 - 400 K/cu | [facility] | | | COUNT | | mm | LABORATORY | | | | | | SERVICES, | | | | | | CORE | | + + + + + + + + | Specimen | + + | Blood - Blood | + + + + + + + | Performing | Address | City/State/Zipcode | Phone Number | | Organization | | | | + + + + + | [facility] | [address] | [place] [address] | | | SERVICES, CORE | [address] | | | + + + + + MAGNESIUM, PLASMA (10/09/2012 7:51 AM PST) + +---------+ + + + | Component | Value | Ref Range | Performed | Pathologist | | | | | At | Signature | + +---------+ + + + | MAGNESIUM,P | 1.7 (L) | 1.8 - 2.5 mg/dL | [facility] | | | LASMA | | | LABORATORY | | | | | | SERVICES, | | | | | | CORE | | + +---------+ + + + + + | Specimen | + + | Blood - Blood | + + + + + + + | Performing | Address | City/State/Zipcode | Phone Number | | Organization | | | | + + + + + | [facility] | [address] | [place] [address] | | | SERVICES, CORE | [address] | | | + + + + + BASIC METABOLIC SET (NA, K, CL, TCO2, BUN, CR, GLU, CA) (10/09/2012 7:51 AM PST) + +---------+ + + + | Component | Value | Ref Range | Performed | Pathologist | | | | | At | Signature | + +---------+ + + + | GLUCOSE, | 114 (H) | 60 - 99 mg/dL | [facility] | | | PLASMA | | | LABORATORY | | | (LAB) | | | SERVICES, | | | | | | CORE | | + +---------+ + + + | BUN, PLASMA | 10 | 6 - 20 mg/dL | [facility] | | | (LAB) | | | LABORATORY | | | | | | SERVICES, | | | | | | CORE | | + +---------+ + + + | CREATININE | 0.72 | 0.60 - 1.10 | [facility] | | | PLASMA | | mg/dL | LABORATORY | | | (LAB) | | | SERVICES, | | | | | | CORE | | + +---------+ + + + | SODIUM, | 141 | 136 - 145 | [facility] | | | PLASMA | | mmol/L | LABORATORY | | | (LAB) | | | SERVICES, | | | | | | CORE | | + +---------+ + + + | POTASSIUM, | 3.9 | 3.4 - 5.0 | [facility] | | | PLASMA | | mmol/L | LABORATORY | | | (LAB) | | | SERVICES, | | | | | | CORE | | + +---------+ + + + | CHLORIDE, | 107 | 97 - 108 mmol/L | [facility] | | | PLASMA | | | LABORATORY | | | (LAB) | | | SERVICES, | | | | | | CORE | | + +---------+ + + + | TOTAL CO2, | 25 | 21 - 32 mmol/L | [facility] | | | PLASMA | | | LABORATORY | | | (LAB) | | | SERVICES, | | | | | | CORE | | + +---------+ + + + | CALCIUM, | 8.5 (L) | 8.6 - 10.2 | [facility] | | | PLASMA | | mg/dL | LABORATORY | | | (LAB) | | | SERVICES, | | | | | | CORE | | + +---------+ + + + | ANION GAP | 9 | 4 - 11 mmol/L | [facility] | | | | | | LABORATORY | | | | | | SERVICES, | | | | | | CORE | | + +---------+ + + + | POTASSIUM | No Hemo | | [facility] | | | CMNT | | | LABORATORY | | | | | | SERVICES, | | | | | | CORE | | + +---------+ + + + + + | Specimen | + + | Blood - Blood | + + + + + + + | Performing | Address | City/State/Zipcode | Phone Number | | Organization | | | | + + + + + | [facility] | [address] | [place] [address] | | | SERVICES, CORE | [address] | | | + + + + + LIVER SET (AST,ALT,BILI TOTAL,BILI DIRECT,ALK PHOS,ALB,PROT TOTAL) (10/08/2012 9:21 AM PST ) + +---------+ + + + | Component | Value | Ref Range | Performed | Pathologist | | | | | At | Signature | + +---------+ + + + | ALBUMIN, | 2.3 (L) | 3.5 - 4.7 g/dL | [facility] | | | PLASMA | | | LABORATORY | | | (LAB) | | | SERVICES, | | | | | | CORE | | + +---------+ + + + | BILIRUBIN | 0.3 | 0.3 - 1.2 mg/dL | [facility] | | | TOTAL | | | LABORATORY | | | | | | SERVICES, | | | | | | CORE | | + +---------+ + + + | BILIRUBIN | <0.1 | 0.0 - 0.3 mg/dL | [facility] | | | DIRECT | | | LABORATORY | | | | | | SERVICES, | | | | | | CORE | | + +---------+ + + + | ALK PHOS | 181 (H) | 42 - 98 U/L | [facility] | | | | | | LABORATORY | | | | | | SERVICES, | | | | | | CORE | | + +---------+ + + + | AST(SGOT) | 33 | 15 - 41 U/L | [facility] | | | | | | LABORATORY | | | | | | SERVICES, | | | | | | CORE | | + +---------+ + + + | ALT (SGPT) | 24 | 12 - 60 U/L | [facility] | | | | | | LABORATORY | | | | | | SERVICES, | | | | | | CORE | | + +---------+ + + + | TOTAL | 6.4 | 6.1 - 7.9 g/dL | [facility] | | | PROTEIN, | | | LABORATORY | | | PLASMA | | | SERVICES, | | | (LAB) | | | CORE | | + +---------+ + + + | AST CMNT | Sl Hemo | | [facility] | | | | | | LABORATORY | | | | | | SERVICES, | | | | | | CORE | | + +---------+ + + + + + | Specimen | + + | Blood - Blood | + + + + + | Narrative | Performed At | + + + | Sample hemolyzed. Results for K, Total Bili, Direct Bili, AST, | [facility] | | LDH, or HDL may be inaccurate. Refer to comment under test result. | LABORATORY | | | SERVICES, CORE | + + + + + + + + | Performing | Address | City/State/Zipcode | Phone Number | | Organization | | | | + + + + + | [facility] | [address] | [place] [address] | | | SERVICES, CORE | [address] | | | + + + + + VANCOMYCIN, TROUGH (10/08/2012 9:21 AM PST) + + + + + + | Component | Value | Ref Range | Performed | Pathologist | | | | | At | Signature | + + + + + + | VANCOMYCIN, | 18.1 (H) | 5.0 - 15.0 | [facility] | | | TROUGH | | ug/mL | LABORATORY | | | | | | SERVICES, | | | | | | CORE | | + + + + + + + + | Specimen | + + | Blood - Blood | + + + + + + + | Performing | Address | City/State/Zipcode | Phone Number | | Organization | | | | + + + + + | [facility] | [address] | [place] [address] | | | SERVICES, [place] | [address] | | | + + + + + CREATININE, URINE (10/08/2012 6:00 AM PST) + +-------+ + + + | Component | Value | Ref Range | Performed | Pathologist | | | | | At | Signature | + +-------+ + + + | CREATININE, | 1.03 | 0.60 - 1.60 | [facility] | | | URINE | | g/col. time | LABORATORY | | | | | | SERVICES, | | | | | | CORE | | + +-------+ + + + | CREATININE | 34.03 | mg/dL | [facility] | | | CONC UR | | | LABORATORY | | | | | | SERVICES, | | | | | | CORE | | + +-------+ + + + | URINE | 3,025 | mL | [facility] | | | VOLUME | | | LABORATORY | | | | | | SERVICES, | | | | | | CORE | | + +-------+ + + + | UR | 24.0 | Hr | [facility] | | | COLLECTION | | | LABORATORY | | | TIME | | | SERVICES, | | | | | | CORE | | + +-------+ + + + + + | Specimen | + + | Urine - Urine | + + + + + | Narrative | Performed At | + + + | Normal values based on 24 hour collection interval. Patient | [facility] | | results are calculated from actual collection interval and volume. | LABORATORY | | | SERVICES, CORE | + + + + + + + + | Performing | Address | City/State/Zipcode | Phone Number | | Organization | | | | + + + + + | [facility] | [address] | [place] [address] | | | SERVICES, CORE | [address] | | | + + + + + PROTEIN, URINE (10/08/2012 6:00 AM PST) + + + + + + | Component | Value | Ref Range | Performed | Pathologist | | | | | At | Signature | + + + + + + | PROTEIN,URI | 514 | mg/col.time | [facility] | | | NE | | | LABORATORY | | | | | | JEFF, | | | | | | CORE | | + + + + + + | PROTEIN | 17 | mg/dL | [facility] | | | CONC URINE | | | LABORATORY | | | | | | SERVICES, | | | | | | CORE | | + + + + + + | URINE | 3,025 | mL | [facility] | | | VOLUME | | | LABORATORY | | | | | | SERVICES, | | | | | | CORE | | + + + + + + | PROTEIN/CRE | 0.50 (H) | <0.10 mg/mg | [facility] | | | ATININE | | | LABORATORY | | | RATIO | | | SERVICES, | | | | | | CORE | | + + + + + + | UR | 24.0 | Hr | [facility] | | | COLLECTION | | | LABORATORY | | | TIME | | | SERVICES, | | | | | | CORE | | + + + + + + + + | Specimen | + + | Urine - Urine | + + + + + | Narrative | Performed At | + + + | Normal values based on 24 hour collection interval. Patient | [facility] | | results are calculated from actual collection interval and volume. | LABORATORY | | Protein Reference Range: 50-80 mg/24hr At Rest <150 mg/24hr | SERVICES, CORE | | Ambulatory, normal level of physical activity <250 mg/24hr | | | Strenuous physical activity Protein/Creatinine Ratio 0.10 | | + + + + + + + + | Performing | Address | City/State/Zipcode | Phone Number | | Organization | | | | + + + + + | [facility] | [address] | [place] [address] | | | SERVICES, CORE | [address] | | | + + + + + CBC (10/08/2012 2:47 AM PST) + + + + + + | Component | Value | Ref Range | Performed | Pathologist | | | | | At | Signature | + + + + + + | WHITE CELL | 10.8 | 4.4 - 11.0 K/cu | [facility] | | | COUNT | | mm | LABORATORY | | | | | | SERVICES, | | | | | | CORE | | + + + + + + | RED CELL | 2.97 (L) | 4.00 - 5.20 | [facility] | | | COUNT | | M/cu mm | LABORATORY | | | | | | SERVICES, | | | | | | CORE | | + + + + + + | HEMOGLOBIN | 8.5 (L) | 12.0 - 16.0 | [facility] | | | | | g/dL | LABORATORY | | | | | | SERVICES, | | | | | | CORE | | + + + + + + | HEMATOCRIT | 25.8 (L) | 36.0 - 46.0 % | [facility] | | | | | | LABORATORY | | | | | | SERVICES, | | | | | | CORE | | + + + + + + | MCV | 87.0 | 80.0 - 96.0 fL | [facility] | | | | | | LABORATORY | | | | | | SERVICES, | | | | | | CORE | | + + + + + + | MCHC | 33.1 (L) | 33.4 - 35.5 | [facility] | | | | | g/dL | LABORATORY | | | | | | SERVICES, | | | | | | CORE | | + + + + + + | RDW | 15.8 (H) | 11.5 - 15.0 % | [facility] | | | | | | LABORATORY | | | | | | SERVICES, | | | | | | CORE | | + + + + + + | PLATELET | 414 (H) | 150 - 400 K/cu | [facility] | | | COUNT | | mm | LABORATORY | | | | | | SERVICES, | | | | | | CORE | | + + + + + + + + | Specimen | + + | Blood - Blood | + + + + + + + | Performing | Address | City/State/Zipcode | Phone Number | | Organization | | | | + + + + + | [facility] | [address] | [place] [address] | | | JEFF, CORE | [address] | | | + + + + + MAGNESIUM, PLASMA (10/08/2012 2:47 AM PST) + +-------+ + + + | Component | Value | Ref Range | Performed | Pathologist | | | | | At | Signature | + +-------+ + + + | MAGNESIUM,P | 2.5 | 1.8 - 2.5 mg/dL | [facility] | | | [facility] | | | LABORATORY | | | | | | JEFF, | | | | | | CORE | | + +-------+ + + + + + | Specimen | + + | Blood - Blood | + + + + + + + | Performing | Address | City/State/Zipcode | Phone Number | | Organization | | | | + + + + + | [facility] | [address] | [place] [address] | | | SERVICES, CORE | [address] | | | + + + + + BASIC METABOLIC SET (NA, K, CL, TCO2, BUN, CR, GLU, CA) (10/08/2012 2:47 AM PST) + + + + + + | Component | Value | Ref Range | Performed | Pathologist | | | | | At | Signature | + + + + + + | GLUCOSE, | 101 (H) | 60 - 99 mg/dL | [facility] | | | PLASMA | | | LABORATORY | | | (LAB) | | | SERVICES, | | | | | | CORE | | + + + + + + | BUN, PLASMA | 8 | 6 - 20 mg/dL | [facility] | | | (LAB) | | | LABORATORY | | | | | | SERVICES, | | | | | | CORE | | + + + + + + | CREATININE | 0.50 (L) | 0.60 - 1.10 | [facility] | | | PLASMA | | mg/dL | LABORATORY | | | (LAB) | | | SERVICES, | | | | | | CORE | | + + + + + + | SODIUM, | 141 | 136 - 145 | [facility] | | | PLASMA | | mmol/L | LABORATORY | | | (LAB) | | | SERVICES, | | | | | | CORE | | + + + + + + | POTASSIUM, | 3.8 | 3.4 - 5.0 | [facility] | | | PLASMA | | mmol/L | LABORATORY | | | (LAB) | | | SERVICES, | | | | | | CORE | | + + + + + + | CHLORIDE, | 106 | 97 - 108 mmol/L | [facility] | | | PLASMA | | | LABORATORY | | | (LAB) | | | SERVICES, | | | | | | CORE | | + + + + + + | TOTAL CO2, | 27 | 21 - 32 mmol/L | [facility] | | | PLASMA | | | LABORATORY | | | (LAB) | | | SERVICES, | | | | | | CORE | | + + + + + + | CALCIUM, | 7.9 (L) | 8.6 - 10.2 | [facility] | | | PLASMA | | mg/dL | LABORATORY | | | (LAB) | | | SERVICES, | | | | | | CORE | | + + + + + + | ANION GAP | 8 | 4 - 11 mmol/L | [facility] | | | | | | LABORATORY | | | | | | SERVICES, | | | | | | CORE | | + + + + + + | POTASSIUM | No Hemo | | [facility] | | | CMNT | | | LABORATORY | | | | | | SERVICES, | | | | | | CORE | | + + + + + + + + | Specimen | + + | Blood - Blood | + + + + + + + | Performing | Address | City/State/Zipcode | Phone Number | | Organization | | | | + + + + + | [facility] | [address] | [place] [address] | | | SERVICES, CORE | [address] | | | + + + + + X-RAY CHEST 1 VIEW (10/07/2012 6:03 AM PST) + + + + + + | Component | Value | Ref Range | Performed | Pathologist | | | | | At | Signature | + + + + + + | CHEST, 1 | STUDY: CHEST 1 VIEW | | | | | VIEW | 10/07/12 06:03:00 | | | | | | COMPARISON: Chest x-ray | | | | | | one view 10/06/2012 | | | | | | HISTORY: Hypoxic | | | | | | respiratory failure | | | | | | FINDINGS: An | | | | | | endotracheal tube tip | | | | | | now terminates 4.5 cm | | | | | | proximal to the | | | | | | carinawithin the | | | | | | trachea. An enteric | | | | | | tube tip terminates | | | | | | beneath thediaphragm and | | | | | | outside the | | | | | | [id number]. A mild | | | | | | | | | | | | groundglassopacification | | | | | | the lungs with vascular | | | | | | indistinctness and | | | | | | septal linesis | | | | | | present. Moderate | | | | | | volume layering right | | | | | | and small left | | | | | | pleuraleffusions are | | | | | | evident. The cardia | | | | | | mediastinal silhouette | | | | | | isunchanged. Regional | | | | | | osseous structures are | | | | | | unremarkable. | | | | | | IMPRESSION: Hydrostatic | | | | | | pulmonary edema with | | | | | | moderate right and small | | | | | | leftpleural effusions. | | | | | | Attending Radiologists: | | | | | | Willian Mcghee, | | | | | | ShineAuthor: Ezio | | | | | | Shine Prabhakar I have | | | | | | personally viewed this | | | | | | procedure/exam, reviewed | | | | | | this report,and made | | | | | | changes to it where | | | | | | appropriate. | | | | | | Final/Electronically | | | | | | signed / Willian Doe | | | | | | Litzy 10/07/2012 | | | | | | 14:21 PM | | | | + + + + + + + + | Specimen | + + | | + + + +---------+ + + | Performing | Address | City/State/Zipcode | Phone Number | | Organization | | | | + +---------+ + + | [facility] | | | | | RADIOLOGY | | | | + +---------+ + + CBC (10/07/2012 2:59 AM PST) + + + + + + | Component | Value | Ref Range | Performed | Pathologist | | | | | At | Signature | + + + + + + | WHITE CELL | 12.0 (H) | 4.4 - 11.0 K/cu | [facility] | | | COUNT | | mm | LABORATORY | | | | | | SERVICES, | | | | | | CORE | | + + + + + + | RED CELL | 3.14 (L) | 4.00 - 5.20 | [facility] | | | COUNT | | M/cu mm | LABORATORY | | | | | | SERVICES, | | | | | | CORE | | + + + + + + | HEMOGLOBIN | 9.0 (L) | 12.0 - 16.0 | [facility] | | | | | g/dL | LABORATORY | | | | | | SERVICES, | | | | | | CORE | | + + + + + + | HEMATOCRIT | 27.4 (L) | 36.0 - 46.0 % | [facility] | | | | | | LABORATORY | | | | | | SERVICES, | | | | | | CORE | | + + + + + + | MCV | 87.1 | 80.0 - 96.0 fL | [facility] | | | | | | LABORATORY | | | | | | SERVICES, | | | | | | CORE | | + + + + + + | MCHC | 32.9 (L) | 33.4 - 35.5 | [facility] | | | | | g/dL | LABORATORY | | | | | | SERVICES, | | | | | | CORE | | + + + + + + | RDW | 16.0 (H) | 11.5 - 15.0 % | [facility] | | | | | | LABORATORY | | | | | | SERVICES, | | | | | | CORE | | + + + + + + | PLATELET | 465 (H) | 150 - 400 K/cu | [facility] | | | COUNT | | mm | LABORATORY | | | | | | SERVICES, | | | | | | CORE | | + + + + + + + + | Specimen | + + | Blood - Blood | + + + + + + + | Performing | Address | City/State/Zipcode | Phone Number | | Organization | | | | + + + + + | [facility] | [address] | [place] [address] | | | SERVICES, CORE | [address] | | | + + + + + MAGNESIUM, PLASMA (10/07/2012 2:59 AM PST) + +---------+ + + + | Component | Value | Ref Range | Performed | Pathologist | | | | | At | Signature | + +---------+ + + + | MAGNESIUM,P | 3.8 (H) | 1.8 - 2.5 mg/dL | [facility] | | | LASMA | | | LABORATORY | | | | | | SERVICES, | | | | | | CORE | | + +---------+ + + + + + | Specimen | + + | Blood - Blood | + + + + + + + | Performing | Address | City/State/Zipcode | Phone Number | | Organization | | | | + + + + + | [facility] | [address] | [place] [address] | | | SERVICES, CORE | [address] | | | + + + + + BASIC METABOLIC SET (NA, K, CL, TCO2, BUN, CR, GLU, CA) (10/07/2012 2:59 AM PST) + +---------+ + + + | Component | Value | Ref Range | Performed | Pathologist | | | | | At | Signature | + +---------+ + + + | GLUCOSE, | 128 (H) | 60 - 99 mg/dL | [facility] | | | PLASMA | | | LABORATORY | | | (LAB) | | | SERVICES, | | | | | | CORE | | + +---------+ + + + | BUN, PLASMA | 7 | 6 - 20 mg/dL | [facility] | | | (LAB) | | | LABORATORY | | | | | | SERVICES, | | | | | | CORE | | + +---------+ + + + | CREATININE | 0.62 | 0.60 - 1.10 | [facility] | | | PLASMA | | mg/dL | LABORATORY | | | (LAB) | | | SERVICES, | | | | | | CORE | | + +---------+ + + + | SODIUM, | 145 | 136 - 145 | [facility] | | | PLASMA | | mmol/L | LABORATORY | | | (LAB) | | | SERVICES, | | | | | | CORE | | + +---------+ + + + | POTASSIUM, | 3.7 | 3.4 - 5.0 | [facility] | | | PLASMA | | mmol/L | LABORATORY | | | (LAB) | | | SERVICES, | | | | | | CORE | | + +---------+ + + + | CHLORIDE, | 107 | 97 - 108 mmol/L | [facility] | | | PLASMA | | | LABORATORY | | | (LAB) | | | SERVICES, | | | | | | CORE | | + +---------+ + + + | TOTAL CO2, | 30 | 21 - 32 mmol/L | [facility] | | | PLASMA | | | LABORATORY | | | (LAB) | | | SERVICES, | | | | | | CORE | | + +---------+ + + + | CALCIUM, | 7.7 (L) | 8.6 - 10.2 | [facility] | | | PLASMA | | mg/dL | LABORATORY | | | (LAB) | | | SERVICES, | | | | | | CORE | | + +---------+ + + + | ANION GAP | 8 | 4 - 11 mmol/L | [facility] | | | | | | LABORATORY | | | | | | SERVICES, | | | | | | CORE | | + +---------+ + + + | POTASSIUM | No Hemo | | [facility] | | | CMNT | | | LABORATORY | | | | | | SERVICES, | | | | | | CORE | | + +---------+ + + + + + | Specimen | + + | Blood - Blood | + + + + + + + | Performing | Address | City/State/Zipcode | Phone Number | | Organization | | | | + + + + + | [facility] | [address] | [place] [address] | | | SERVICES, CORE | [address] | | | + + + + + TRANSTHORACIC ECHOCARDIOGRAM, ADULT (10/07/2012 12:00 AM PST) + + + | Narrative | Performed At | + + + | | | | | | + + + + + | Procedure Note | + + | Michelle Morales - 10/07/2012 2:02 PM PST | + + CBC (10/06/2012 8:19 PM PST) + + + + + + | Component | Value | Ref Range | Performed | Pathologist | | | | | At | Signature | + + + + + + | WHITE CELL | 12.9 (H) | 4.4 - 11.0 K/cu | [facility] | | | COUNT | | mm | LABORATORY | | | | | | SERVICES, | | | | | | CORE | | + + + + + + | RED CELL | 3.09 (L) | 4.00 - 5.20 | [facility] | | | COUNT | | M/cu mm | LABORATORY | | | | | | SERVICES, | | | | | | CORE | | + + + + + + | HEMOGLOBIN | 8.8 (L) | 12.0 - 16.0 | [facility] | | | | | g/dL | LABORATORY | | | | | | SERVICES, | | | | | | CORE | | + + + + + + | HEMATOCRIT | 27.0 (L) | 36.0 - 46.0 % | [facility] | | | | | | LABORATORY | | | | | | SERVICES, | | | | | | CORE | | + + + + + + | MCV | 87.6 | 80.0 - 96.0 fL | [facility] | | | | | | LABORATORY | | | | | | SERVICES, | | | | | | CORE | | + + + + + + | MCHC | 32.7 (L) | 33.4 - 35.5 | [facility] | | | | | g/dL | LABORATORY | | | | | | SERVICES, | | | | | | CORE | | + + + + + + | RDW | 16.2 (H) | 11.5 - 15.0 % | [facility] | | | | | | LABORATORY | | | | | | SERVICES, | | | | | | CORE | | + + + + + + | PLATELET | 454 (H) | 150 - 400 K/cu | [facility] | | | COUNT | | mm | LABORATORY | | | | | | SERVICES, | | | | | | CORE | | + + + + + + + + | Specimen | + + | Blood - Blood | + + + + + + + | Performing | Address | City/State/Zipcode | Phone Number | | Organization | | | | + + + + + | [facility] | [address] | [place] [address] | | | SERVICES, CORE | [address] | | | + + + + + LACTIC ACID (10/06/2012 8:19 PM PST) + +-------+ + + + | Component | Value | Ref Range | Performed | Pathologist | | | | | At | Signature | + +-------+ + + + | LACTATE | 0.8 | mmol/L | [facility] | | | | | | LABORATORY | | | | | | SERVICES, | | | | | | CORE | | + +-------+ + + + + + | Specimen | + + | Blood - Blood | + + + + + | Narrative | Performed At | + + + | Reference Range: Venous blood: 0.5 - 2.2 mmol/L | [facility] | | Arterial blood: 0.5 - 1.6 mmol/L | LABORATORY | | | SERVICES, CORE | + + + + + + + + | Performing | Address | City/State/Zipcode | Phone Number | | Organization | | | | + + + + + | [facility] | [address] | [place] [address] | | | SERVICES, CORE | [address] | | | + + + + + INFLUENZA A/A2009/B PCR, RAPID (10/06/2012 8:19 PM PST) + + + + + + | Component | Value | Ref Range | Performed | Pathologist | | | | | At | Signature | + + + + + + | INFLUENZA A | Not Detected | Not Detected | [facility] | | | PCR | | | LABORATORY | | | | | | SERVICES, | | | | | | CORE | | + + + + + + | INFLUENZA A | Comment: Test not | Not Detected | [facility] | | | SUBTYPE H1 | preformed | | LABORATORY | | | PCR | | | SERVICES, | | | | | | CORE | | + + + + + + | INFLUENZA B | Not Detected | Not Detected | [facility] | | | PCR | | | LABORATORY | | | | | | SERVICES, | | | | | | CORE | | + + + + + + | SPEC TYPE | Nasal/SWITCH REPAIRER swab | (none) | [facility] | | | | | | LABORATORY | | | | | | SERVICES, | | | | | | CORE | | + + + + + + + + | Specimen | + + | Swab - Nasal | + + + + + | Narrative | Performed At | + + + | Test done at [facility] | [facility] | | | [facility] | | | [facility] | + + + + + + + + | Performing | Address | City/State/Zipcode | Phone Number | | Organization | | | | + + + + + | [facility] | [address] | [place] [address] | | | [facility] | [address] | | | + + + + + UA, DIPSTICK ONLY (10/06/2012 6:46 PM PST) + + + + + + | Component | Value | Ref Range | Performed | Pathologist | | | | | At | Signature | + + + + + + | COLOR(UR) | Yellow | (none) | [facility] | | | | | | LABORATORY | | | | | | SERVICES, | | | | | | CORE | | + + + + + + | APPEARANCE | Sl.Cloudy | (none) | [facility] | | | | | | LABORATORY | | | | | | SERVICES, | | | | | | CORE | | + + + + + + | GLUCOSE(UR) | Negative | Negative, 50.0 | [facility] | | | | | mg/dL | LABORATORY | | | | | | SERVICES, | | | | | | CORE | | + + + + + + | PROTEIN(LAB | 30.0 | Negative, 30.0 | [facility] | | | ) | | mg/dL | LABORATORY | | | | | | SERVICES, | | | | | | CORE | | + + + + + + | BILIRUBIN | Negative | Negative | [facility] | | | | | | LABORATORY | | | | | | SERVICES, | | | | | | CORE | | + + + + + + | UROBILINOGE | <2.0 | <2.0 mg/dL | [facility] | | | N | | | LABORATORY | | | | | | SERVICES, | | | | | | CORE | | + + + + + + | PH(UR) | 5.0 | 5.0 - 8.0 | [facility] | | | | | | LABORATORY | | | | | | SERVICES, | | | | | | CORE | | + + + + + + | BLOOD | Negative | Negative | [facility] | | | | | | LABORATORY | | | | | | SERVICES, | | | | | | CORE | | + + + + + + | KETONES | Negative | Negative mg/dL | [facility] | | | | | | LABORATORY | | | | | | SERVICES, | | | | | | CORE | | + + + + + + | NITRITES | Negative | Negative | [facility] | | | | | | LABORATORY | | | | | | SERVICES, | | | | | | CORE | | + + + + + + | LEUKOCYTE | Negative | Negative | [facility] | | | ESTERASE | | | LABORATORY | | | | | | SERVICES, | | | | | | CORE | | + + + + + + | SPECIFIC | 1.024 | 1.005 - 1.030 | [facility] | | | GRAVITY | | | LABORATORY | | | | | | SERVICES, | | | | | | CORE | | + + + + + + + + | Specimen | + + | Urine - Urine | + + + + + + + | Performing | Address | City/State/Zipcode | Phone Number | | Organization | | | | + + + + + | [facility] | [address] | [place] [address] | | | SERVICES, CORE | [address] | | | + + + + + URIC ACID, PLASMA (10/06/2012 6:31 PM PST) + +-------+ + + + | Component | Value | Ref Range | Performed | Pathologist | | | | | At | Signature | + +-------+ + + + | URIC ACID, | 4.2 | 2.5 - 6.2 mg/dL | [facility] | | | PLASMA | | | LABORATORY | | | (LAB) | | | SERVICES, | | | | | | CORE | | + +-------+ + + + + + | Specimen | + + | Blood - Blood | + + + + + + + | Performing | Address | City/State/Zipcode | Phone Number | | Organization | | | | + + + + + | [facility] | [address] | [place] [address] | | | SERVICES, CORE | [address] | | | + + + + + BLOOD GASES, ARTERIAL - LAB (10/06/2012 6:24 PM PST) + +--------+ + + + | Component | Value | Ref Range | Performed | Pathologist | | | | | At | Signature | + +--------+ + + + | PAT TEMP | 37.6 | Degree C | [facility] | | | ARTERIAL | | | LABORATORY | | | | | | SERVICES, | | | | | | CORE | | + +--------+ + + + | FIO2 | .4 | | [facility] | | | ARTERIAL | | | LABORATORY | | | | | | SERVICES, | | | | | | CORE | | + +--------+ + + + | PH ARTERIAL | 7.39 | 7.37 - 7.44 | [facility] | | | | | | LABORATORY | | | | | | SERVICES, | | | | | | CORE | | + +--------+ + + + | PCO2 | 49 (H) | 32 - 43 mmHg | [facility] | | | ARTERIAL | | | LABORATORY | | | | | | SERVICES, | | | | | | CORE | | + +--------+ + + + | PO2 | 84 | 83 - 108 mmHg | [facility] | | | ARTERIAL | | | LABORATORY | | | | | | SERVICES, | | | | | | CORE | | + +--------+ + + + | HCO3 | 29 (H) | 21 - 28 mmol/L | [facility] | | | ARTERIAL | | | LABORATORY | | | | | | SERVICES, | | | | | | CORE | | + +--------+ + + + | TOTAL CO2 | 30 (H) | 22 - 28 mmol/L | [facility] | | | ARTERIAL | | | LABORATORY | | | | | | SERVICES, | | | | | | CORE | | + +--------+ + + + | BASE EXCESS | 3.5 | mmol/L | [facility] | | | ARTERIAL | | | LABORATORY | | | | | | SERVICES, | | | | | | CORE | | + +--------+ + + + | O2 SAT, | 96.9 | 92.0 - 98.0 % | [facility] | | | ARTERIAL | | | LABORATORY | | | | | | SERVICES, | | | | | | CORE | | + +--------+ + + + + + | Specimen | + + | Blood - Blood | + + + + + + + | Performing | Address | City/State/Zipcode | Phone Number | | Organization | | | | + + + + + | [facility] | [address] | [place] [address] | | | SERVICES, CORE | [address] | | | + + + + + CONFIRMATORY ABO/RH (10/06/2012 5:38 PM PST) + + + + + + | Component | Value | Ref Range | Performed | Pathologist | | | | | At | Signature | + + + + + + | ABO Group | A | | [facility] | | | | | | LABORATORY | | | | | | SERVICES, | | | | | | TRANSFUSION | | | | | | MEDICINE | | + + + + + + | Rh Type | Positive | | [facility] | | | | | | LABORATORY | | | | | | SERVICES, | | | | | | TRANSFUSION | | | | | | MEDICINE | | + + + + + + + + | Specimen | + + | Blood - Blood | + + + + + + + | Performing | Address | City/State/Zipcode | Phone Number | | Organization | | | | + + + + + | [email or web address] | [address] | [place] [address] | | | SERVICES, | [address] | | | | TRANSFUSION MEDICINE | | | | + + + + + CULTURE, SPUTUM (10/06/2012 4:37 PM PST) + + + + + + | Component | Value | Ref Range | Performed | Pathologist | | | | | At | Signature | + + + + + + | CULTURE | C RespiratorySource: | | [facility] - | | | RESULT | Sputum | | AIRPORT - | | | | Final | | [place] | | | | GRAM STAIN:No squamous | | | | | | epithelial cells | | | | | | Moderate PMNS Rare Mixed | | | | | | leatha CULTURE | | | | | | RESULT:Rare Oral Leatha | | | | | |CULTURE RESULT: | | | | | |Rare Oral Leatha | | | | + + + + + + + + | Specimen | + + | Sputum - | | Endotracheal | + + + + + + + | Performing | Address | City/State/Zipcode | Phone Number | | Organization | | | | + + + + + | [facility] | [address] | [place] [address] | | | [facility] | | | | + + + + + CBC AND AUTO DIFF (10/06/2012 3:38 PM PST) + + + + + + | Component | Value | Ref Range | Performed | Pathologist | | | | | At | Signature | + + + + + + | WHITE CELL | 12.5 (H) | 4.4 - 11.0 K/cu | [facility] | | | COUNT | | mm | LABORATORY | | | | | | SERVICES, | | | | | | CORE | | + + + + + + | RED CELL | 3.15 (L) | 4.00 - 5.20 | [facility] | | | COUNT | | M/cu mm | LABORATORY | | | | | | SERVICES, | | | | | | CORE | | + + + + + + | HEMOGLOBIN | 9.5 (L) | 12.0 - 16.0 | [facility] | | | | | g/dL | LABORATORY | | | | | | SERVICES, | | | | | | CORE | | + + + + + + | HEMATOCRIT | 27.6 (L) | 36.0 - 46.0 % | [facility] | | | | | | LABORATORY | | | | | | SERVICES, | | | | | | CORE | | + + + + + + | MCV | 87.6 | 80.0 - 96.0 fL | [facility] | | | | | | LABORATORY | | | | | | SERVICES, | | | | | | CORE | | + + + + + + | MCHC | 34.3 | 33.4 - 35.5 | [facility] | | | | | g/dL | LABORATORY | | | | | | SERVICES, | | | | | | CORE | | + + + + + + | RDW | 16.1 (H) | 11.5 - 15.0 % | [facility] | | | | | | LABORATORY | | | | | | SERVICES, | | | | | | CORE | | + + + + + + | PLATELET | 444 (H) | 150 - 400 K/cu | [facility] | | | COUNT | | mm | LABORATORY | | | | | | SERVICES, | | | | | | CORE | | + + + + + + | NEUTROPHIL | 86 (H) | 50 - 70 % | [facility] | | | % | | | LABORATORY | | | | | | SERVICES, | | | | | | CORE | | + + + + + + | LYMPHOCYTE | 8 (L) | 18 - 42 % | [facility] | | | % | | | LABORATORY | | | | | | SERVICES, | | | | | | CORE | | + + + + + + | MONOCYTE % | 4 | 2 - 8 % | [facility] | | | | | | LABORATORY | | | | | | SERVICES, | | | | | | CORE | | + + + + + + | EOS % | 1 | 1 - 3 % | [facility] | | | | | | LABORATORY | | | | | | SERVICES, | | | | | | CORE | | + + + + + + | BASO % | 0 | 0 - 2 % | [facility] | | | | | | LABORATORY | | | | | | SERVICES, | | | | | | CORE | | + + + + + + | NEUTROPHIL | 10.8 (H) | 1.8 - 7.7 K/cu | [facility] | | | # | | mm | LABORATORY | | | | | | SERVICES, | | | | | | CORE | | + + + + + + | LYMPHOCYTE | 1.0 | 1.0 - 4.8 K/cu | [facility] | | | # | | mm | LABORATORY | | | | | | SERVICES, | | | | | | CORE | | + + + + + + | MONOCYTE # | 0.6 | 0.0 - 0.8 K/cu | [facility] | | | | | mm | LABORATORY | | | | | | SERVICES, | | | | | | CORE | | + + + + + + | EOS # | 0.1 | 0.0 - 0.5 K/cu | [facility] | | | | | mm | LABORATORY | | | | | | SERVICES, | | | | | | CORE | | + + + + + + | BASO # | 0.0 | 0.0 - 0.2 K/cu | [facility] | | | | | mm | LABORATORY | | | | | | SERVICES, | | | | | | CORE | | + + + + + + + + | Specimen | + + | Blood - Blood | + + + + + + + | Performing | Address | City/State/Zipcode | Phone Number | | Organization | | | | + + + + + | [facility] | [address] | [place] [address] | | | SERVICES, CORE | [address] | | | + + + + + ANTIBODY SCREEN (10/06/2012 3:38 PM PST) + + + + + + | Component | Value | Ref Range | Performed | Pathologist | | | | | At | Signature | + + + + + + | Antibody | Negative | | [facility] | | | Screen | | | LABORATORY | | | | | | SERVICES, | | | | | | TRANSFUSION | | | | | | MEDICINE | | + + + + + + + + | Specimen | + + | Blood - Blood | + + + + + + + | Performing | Address | City/State/Zipcode | Phone Number | | Organization | | | | + + + + + | [facility] | [address] | [place] [address] | | | SERVICES, | [address] | | | | TRANSFUSION MEDICINE | | | | + + + + + ABO & RH TYPE (10/06/2012 3:38 PM PST) + + + + + + | Component | Value | Ref Range | Performed | Pathologist | | | | | At | Signature | + + + + + + | ABO Group | A | | [facility] | | | | | | LABORATORY | | | | | | SERVICES, | | | | | | TRANSFUSION | | | | | | MEDICINE | | + + + + + + | Rh Type | Positive | | [facility] | | | | | | LABORATORY | | | | | | SERVICES, | | | | | | TRANSFUSION | | | | | | MEDICINE | | + + + + + + + + | Specimen | + + | Blood - Blood | + + + + + + + | Performing | Address | City/State/Zipcode | Phone Number | | Organization | | | | + + + + + | [facility] | [address] | [place] [address] | | | SERVICES, | [address] | | | | TRANSFUSION MEDICINE | | | | + + + + + BLOOD GASES, ARTERIAL - LAB (10/06/2012 3:38 PM PST) + + + + + + | Component | Value | Ref Range | Performed | Pathologist | | | | | At | Signature | + + + + + + | PAT TEMP | 37.3 | Degree C | [facility] | | | ARTERIAL | | | LABORATORY | | | | | | SERVICES, | | | | | | CORE | | + + + + + + | FIO2 | .5 | | [facility] | | | ARTERIAL | | | LABORATORY | | | | | | SERVICES, | | | | | | CORE | | + + + + + + | PH ARTERIAL | 7.37 | 7.37 - 7.44 | [facility] | | | | | | LABORATORY | | | | | | SERVICES, | | | | | | CORE | | + + + + + + | PCO2 | 52 (H) | 32 - 43 mmHg | [facility] | | | ARTERIAL | | | LABORATORY | | | | | | SERVICES, | | | | | | CORE | | + + + + + + | PO2 | 51 (L) | 83 - 108 mmHg | [facility] | | | ARTERIAL | | | LABORATORY | | | | | | SERVICES, | | | | | | CORE | | + + + + + + | HCO3 | 29 (H) | 21 - 28 mmol/L | [facility] | | | ARTERIAL | | | LABORATORY | | | | | | SERVICES, | | | | | | CORE | | + + + + + + | TOTAL CO2 | 31 (H) | 22 - 28 mmol/L | [facility] | | | ARTERIAL | | | LABORATORY | | | | | | SERVICES, | | | | | | CORE | | + + + + + + | BASE EXCESS | 3.5 | mmol/L | [facility] | | | ARTERIAL | | | LABORATORY | | | | | | SERVICES, | | | | | | CORE | | + + + + + + | O2 SAT, | 83.7 (L) | 92.0 - 98.0 % | [facility] | | | ARTERIAL | | | LABORATORY | | | | | | SERVICES, | | | | | | CORE | | + + + + + + + + | Specimen | + + | Blood - Blood | + + + + + + + | Performing | Address | City/State/Zipcode | Phone Number | | Organization | | | | + + + + + | [facility] | [address] | [place] [address] | | | SERVICES, CORE | [address] | | | + + + + + INR (10/06/2012 3:38 PM PST) + +-------+ + + + | Component | Value | Ref Range | Performed | Pathologist | | | | | At | Signature | + +-------+ + + + | INR | 1.07 | 0.90 - 1.20 INR | [facility] | | | | | | LABORATORY | | | | | | SERVICES, | | | | | | CORE | | + +-------+ + + + + + | Specimen | + + | Blood - Blood | + + + + + | Narrative | Performed At | + + + | INR Therapeutic ranges for full anticoagulation: INR for | [facility] | | Venous Thromboembolism (2.0 - 3.0) INR INR | LABORATORY | | for most patients with mech. valves (2.5 - 3.5) INR | SERVICES, CORE | + + + + + + + + | Performing | Address | City/State/Zipcode | Phone Number | | Organization | | | | + + + + + | [facility] | [address] | [place] [address] | | | JEFF, SHAWNEE | [address] | | | + + + + + MAGNESIUM, PLASMA (10/06/2012 3:38 PM PST) + +-------+ + + + | Component | Value | Ref Range | Performed | Pathologist | | | | | At | Signature | + +-------+ + + + | MAGNESIUM,P | 1.8 | 1.8 - 2.5 mg/dL | [facility] | | | [facility] | | | LABORATORY | | | | | | JEFF, | | | | | | CORE | | + +-------+ + + + + + | Specimen | + + | Blood - Blood | + + + + + + + | Performing | Address | City/State/Zipcode | Phone Number | | Organization | | | | + + + + + | [facility] | [address] | [place] [address] | | | SERVICES, CORE | [address] | | | + + + + + PHOSPHORUS, PLASMA (10/06/2012 3:38 PM PST) + +-------+ + + + | Component | Value | Ref Range | Performed | Pathologist | | | | | At | Signature | + +-------+ + + + | PHOSPHORUS, | 3.8 | 2.4 - 4.7 mg/dL | [facility] | | | PLASMA | | | LABORATORY | | | (LAB) | | | SERVICES, | | | | | | CORE | | + +-------+ + + + + + | Specimen | + + | Blood - Blood | + + + + + + + | Performing | Address | City/State/Zipcode | Phone Number | | Organization | | | | + + + + + | [facility] | [address] | [place] [address] | | | SERVICES, CORE | [address] | | | + + + + + COMPLETE METABOLIC SET (NA,K,CL,CO2,BUN,CREAT,GLUC,CA,AST,ALT,BILI TOTAL,ALK PHOS,ALB,PROT TOTAL) (10/06/2012 3:38 PM PST) + + + + + + | Component | Value | Ref Range | Performed | Pathologist | | | | | At | Signature | + + + + + + | GLUCOSE, | 88 | 60 - 99 mg/dL | [facility] | | | PLASMA | | | LABORATORY | | | (LAB) | | | SERVICES, | | | | | | CORE | | + + + + + + | BUN, PLASMA | 8 | 6 - 20 mg/dL | [facility] | | | (LAB) | | | LABORATORY | | | | | | SERVICES, | | | | | | CORE | | + + + + + + | CREATININE | 0.53 (L) | 0.60 - 1.10 | [facility] | | | PLASMA | | mg/dL | LABORATORY | | | (LAB) | | | SERVICES, | | | | | | CORE | | + + + + + + | SODIUM, | 141 | 136 - 145 | [facility] | | | PLASMA | | mmol/L | LABORATORY | | | (LAB) | | | SERVICES, | | | | | | CORE | | + + + + + + | POTASSIUM, | 4.1 | 3.4 - 5.0 | [facility] | | | PLASMA | | mmol/L | LABORATORY | | | (LAB) | | | SERVICES, | | | | | | CORE | | + + + + + + | CHLORIDE, | 107 | 97 - 108 mmol/L | [facility] | | | PLASMA | | | LABORATORY | | | (LAB) | | | SERVICES, | | | | | | CORE | | + + + + + + | TOTAL CO2, | 29 | 21 - 32 mmol/L | [facility] | | | PLASMA | | | LABORATORY | | | (LAB) | | | SERVICES, | | | | | | CORE | | + + + + + + | CALCIUM, | 7.9 (L) | 8.6 - 10.2 | [facility] | | | PLASMA | | mg/dL | LABORATORY | | | (LAB) | | | SERVICES, | | | | | | CORE | | + + + + + + | BILIRUBIN | 0.7 | 0.3 - 1.2 mg/dL | [facility] | | | TOTAL | | | LABORATORY | | | | | | SERVICES, | | | | | | CORE | | + + + + + + | TOTAL | 6.2 | 6.1 - 7.9 g/dL | [facility] | | | PROTEIN, | | | LABORATORY | | | PLASMA | | | SERVICES, | | | (LAB) | | | CORE | | + + + + + + | ALBUMIN, | 2.3 (L) | 3.5 - 4.7 g/dL | [facility] | | | PLASMA | | | LABORATORY | | | (LAB) | | | SERVICES, | | | | | | CORE | | + + + + + + | ALK PHOS | 228 (H) | 42 - 98 U/L | [facility] | | | | | | LABORATORY | | | | | | SERVICES, | | | | | | CORE | | + + + + + + | AST(SGOT) | 35 | 15 - 41 U/L | [facility] | | | | | | LABORATORY | | | | | | SERVICES, | | | | | | CORE | | + + + + + + | ALT (SGPT) | 44 | 12 - 60 U/L | [facility] | | | | | | LABORATORY | | | | | | SERVICES, | | | | | | CORE | | + + + + + + | ANION | 9 | 4 - 11 mmol/L | [facility] | | | GAP(ALB | | | LABORATORY | | | CORRECTED) | | | SERVICES, | | | | | | CORE | | + + + + + + | POTASSIUM | No Hemo | | [facility] | | | CMNT | | | LABORATORY | | | | | | SERVICES, | | | | | | CORE | | + + + + + + | BILI T CMNT | No Hemo | | [facility] | | | | | | LABORATORY | | | | | | SERVICES, | | | | | | CORE | | + + + + + + | AST CMNT | No Hemo | | [facility] | | | | | | LABORATORY | | | | | | SERVICES, | | | | | | CORE | | + + + + + + | ANION GAP | 5 | 4 - 11 mmol/L | [facility] | | | | | | LABORATORY | | | | | | SERVICES, | | | | | | CORE | | + + + + + + + + | Specimen | + + | Blood - Blood | + + + + + + + | Performing | Address | City/State/Zipcode | Phone Number | | Organization | | | | + + + + + | [facility] | [address] | [place] [address] | | | SERVICES, CORE | [address] | | | + + + + + CULTURE, URINE BACTI (10/06/2012 3:36 PM PST) + + + + + + | Component | Value | Ref Range | Performed | Pathologist | | | | | At | Signature | + + + + + + | CULTURE | C UrineSource: U | | [facility] | | | RESULT | Midstream | | [facility] - | | | | Fin | | [place] | | | | al CULTURE RESULT:No | | | | | | growth (<1000 col/ml) | | | | | | after 24 hours | | | | + + + + + + + + | Specimen | + + | Urine - Urine | + + + + + + + | Performing | Address | City/State/Zipcode | Phone Number | | Organization | | | | + + + + + | [facility] | [address] | [place] [address] | | | [place] | | | | + + + + + UA, DIPSTICK ONLY (10/06/2012 3:36 PM PST) + + + + + + | Component | Value | Ref Range | Performed | Pathologist | | | | | At | Signature | + + + + + + | COLOR(UR) | Yellow | (none) | [facility] | | | | | | LABORATORY | | | | | | SERVICES, | | | | | | CORE | | + + + + + + | APPEARANCE | Sl.Cloudy | (none) | [facility] | | | | | | LABORATORY | | | | | | SERVICES, | | | | | | CORE | | + + + + + + | GLUCOSE(UR) | Negative | Negative, 50.0 | [facility] | | | | | mg/dL | LABORATORY | | | | | | SERVICES, | | | | | | CORE | | + + + + + + | PROTEIN(LAB | Negative | Negative, 30.0 | [facility] | | | ) | | mg/dL | LABORATORY | | | | | | SERVICES, | | | | | | CORE | | + + + + + + | BILIRUBIN | Negative | Negative | [facility] | | | | | | LABORATORY | | | | | | SERVICES, | | | | | | CORE | | + + + + + + | UROBILINOGE | <2.0 | <2.0 mg/dL | [facility] | | | N | | | LABORATORY | | | | | | SERVICES, | | | | | | CORE | | + + + + + + | PH(UR) | 5.0 | 5.0 - 8.0 | [facility] | | | | | | LABORATORY | | | | | | SERVICES, | | | | | | CORE | | + + + + + + | BLOOD | Negative | Negative | [facility] | | | | | | LABORATORY | | | | | | SERVICES, | | | | | | CORE | | + + + + + + | KETONES | Negative | Negative mg/dL | [facility] | | | | | | LABORATORY | | | | | | SERVICES, | | | | | | CORE | | + + + + + + | NITRITES | Negative | Negative | [facility] | | | | | | LABORATORY | | | | | | SERVICES, | | | | | | CORE | | + + + + + + | LEUKOCYTE | Trace (A) | Negative | [facility] | | | ESTERASE | | | LABORATORY | | | | | | SERVICES, | | | | | | CORE | | + + + + + + | SPECIFIC | 1.016 | 1.005 - 1.030 | [facility] | | | GRAVITY | | | LABORATORY | | | | | | SERVICES, | | | | | | CORE | | + + + + + + + + | Specimen | + + | Urine - Urine | + + + + + + + | Performing | Address | City/State/Zipcode | Phone Number | | Organization | | | | + + + + + | [facility] | [address] | [place] [address] | | | SERVICES, CORE | [address] | | | + + + + + URINE, MICROSCOPIC EXAM (10/06/2012 3:36 PM PST) + +---------+ + + + | Component | Value | Ref Range | Performed | Pathologist | | | | | At | Signature | + +---------+ + + + | RED CELLS | 17 (H) | 0 - 3 /hpf | [facility] | | | | | | LABORATORY | | | | | | SERVICES, | | | | | | CORE | | + +---------+ + + + | WHITE CELLS | 6 (H) | 0 - 5 /hpf | [facility] | | | | | | LABORATORY | | | | | | SERVICES, | | | | | | CORE | | + +---------+ + + + | BACTERIA | None | None /hpf | [facility] | | | | | | LABORATORY | | | | | | SERVICES, | | | | | | CORE | | + +---------+ + + + | YEAST (LAB) | None | None /hpf | [facility] | | | | | | LABORATORY | | | | | | SERVICES, | | | | | | CORE | | + +---------+ + + + | SQUAMOUS | None | None /hpf | [facility] | | | EPITHELIAL | | | LABORATORY | | | | | | SERVICES, | | | | | | CORE | | + +---------+ + + + | MUCOUS | Few (A) | None /hpf | [facility] | | | | | | LABORATORY | | | | | | SERVICES, | | | | | | CORE | | + +---------+ + + + | TRICHOMONAS | None | None /hpf | [facility] | | | | | | LABORATORY | | | | | | SERVICES, | | | | | | CORE | | + +---------+ + + + | NON-SQUAMOU | Few (A) | None /hpf | [facility] | | | S EPITH | | | LABORATORY | | | | | | SERVICES, | | | | | | CORE | | + +---------+ + + + | HYALINE | 0 | 0 - 2 /lpf | [facility] | | | CASTS | | | LABORATORY | | | | | | SERVICES, | | | | | | CORE | | + +---------+ + + + | GRANULAR | 0 | 0 - 2 /lpf | [facility] | | | CASTS | | | LABORATORY | | | | | | SERVICES, | | | | | | CORE | | + +---------+ + + + | CELLULAR | 0 | <=0 /lpf | [facility] | | | CASTS | | | LABORATORY | | | | | | SERVICES, | | | | | | CORE | | + +---------+ + + + | TRIPLE P04 | None | None /hpf | [facility] | | | CRYSTALS | | | LABORATORY | | | | | | SERVICES, | | | | | | CORE | | + +---------+ + + + | CALCIUM | None | None /hpf | [facility] | | | OXALATE | | | LABORATORY | | | SIVA | | | SERVICES, | | | | | | CORE | | + +---------+ + + + | URIC ACID | None | None /hpf | [facility] | | | CRYSTALS | | | LABORATORY | | | | | | SERVICES, | | | | | | CORE | | + +---------+ + + + | AMORPHOUS | None | None /hpf | [facility] | | | CRYSTALS | | | LABORATORY | | | | | | SERVICES, | | | | | | CORE | | + +---------+ + + + + + | Specimen | + + | Urine - Urine | + + + + + + + | Performing | Address | City/State/Zipcode | Phone Number | | Organization | | | | + + + + + | [facility] | [address] | [place] [address] | | | SERVICES, CORE | [address] | | | + + + + + URINE SCREEN FOR CULTURE (10/06/2012 3:36 PM PST) + + + + + + | Component | Value | Ref Range | Performed | Pathologist | | | | | At | Signature | + + + + + + | URINE | Positive (A) | Negative | [facility] | | | SCREEN FOR | | | LABORATORY | | | CULTURE | | | SERVICES, | | | | | | CORE | | + + + + + + + + | Specimen | + + | Urine - Urine | + + + + + | Narrative | Performed At | + + + | Culture Screen Positive, specimen sent for culture. | [facility] | | | LABORATORY | | | SERVICES, CORE | + + + + + + + + | Performing | Address | City/State/Zipcode | Phone Number | | Organization | | | | + + + + + | [facility] | [address] | [place] [address] | | | SERVICES, CORE | [address] | | | + + + + + X-RAY ABD LTD FEEDING TUBE EVAL (10/06/2012 3:25 PM PST) + + + + + + | Component | Value | Ref Range | Performed | Pathologist | | | | | At | Signature | + + + + + + | ABD LTD | STUDY: ABD LTD FEEDING | | | | | FEEDING | TUBE EVAL 10/06/12 | | | | | TUBE EVAL | 15:25:00 INDICATION: NG | | | | | | tube COMPARISON: None | | | | | | FINDINGS/IMPRESSION: | | | | | | There is an NG tube with | | | | | | the side-port at | | | | | | gastroesophageal | | | | | | junctionand tip at the | | | | | | gastric | | | | | | body. Recommend | | | | | | advancing NG tube. Bowel | | | | | | gas pattern is | | | | | | nonobstructive. | | | | | | Attending Radiologists: | | | | | | Ezio Bautista, | | | | | | MDAuthor: Ezio | | | | | | MD Michele I have | | | | | | personally viewed this | | | | | | procedure/exam, reviewed | | | | | | this report,and made | | | | | | changes to it where | | | | | | appropriate. | | | | | | Final/Electronically | | | | | | dinesh / Ezio | | | | | | Michele 10/06/2012 17:15 | | | | | | PM | | | | + + + + + + + + | Specimen | + + | | + + + +---------+ + + | Performing | Address | City/State/Zipcode | Phone Number | | Organization | | | | + +---------+ + + | [facility] | | | | | RADIOLOGY | | | | + +---------+ + + X-RAY PORTABLE CHEST 1 VIEW (10/06/2012 3:25 PM PST) + + + + + + | Component | Value | Ref Range | Performed | Pathologist | | | | | At | Signature | + + + + + + | X-RAY | STUDY: IL CHEST 1 VIEW | | | | | PORTABLE | 10/06/12 15:25:00 | | | | | CHEST 1 | INDICATION: Hypoxic | | | | | VIEW | respiratory failure | | | | | | COMPARISON: Outside CT | | | | | | and radiograph today | | | | | | FINDINGS: There is an ET | | | | | | tube approximately 2-cm | | | | | | from the | | | | | | Luke. There is anNG | | | | | | tube with side port at | | | | | | GE junction better | | | | | | described on | | | | | | same-dayradiograph. | | | | | | There are right greater | | | | | | than left pleural | | | | | | effusions with | | | | | | fluidtracking along the | | | | | | right fissure. There | | | | | | is central airway | | | | | | thickeningwith mild | | | | | | groundglass opacities in | | | | | | the upper | | | | | | lobes. There | | | | | | ispulmonary vascular | | | | | | indistinctness | | | | | | bilaterally. the osseous | | | | | | structuresare | | | | | | unremarkable. Cardiom | | | | | | ediastinal silhouette is | | | | | | normal. IMPRESSION: | | | | | | Bilateral pulmonary | | | | | | vascular indistinctness | | | | | | consistent with | | | | | | pulmonaryedema and | | | | | | bilateral pleural | | | | | | effusions. This is | | | | | | improved incomparison to | | | | | | recent radiographs. | | | | | | Patchy groundglass most | | | | | | pronounced in the upper | | | | | | lobes may | | | | | | representinflammatory or | | | | | | infectious etiology. | | | | | | Attending Radiologists: | | | | | | Ezio Bautista, | | | | | | MDAuthor: Ezio | | | | | | MD Michele I have | | | | | | personally viewed this | | | | | | procedure/exam, reviewed | | | | | | this report,and made | | | | | | changes to it where | | | | | | appropriate. | | | | | | Final/Electronically | | | | | | dinesh / Ezio | | | | | | Michele 10/06/2012 17:21 | | | | | | PM | | | | + + + + + + + + | Specimen | + + | | + + + +---------+ + + | Performing | Address | City/State/Zipcode | Phone Number | | Organization | | | | + +---------+ + + | [facility] | | | | | RADIOLOGY | | | | + +---------+ + + documented in this encounter Visit Diagnoses + + | Diagnosis | + + | Respiratory failure with hypoxia (HCC) - Primary Acute respiratory failure | + + documented in this encounter Administered Medications + +--------+ +--------+------+------+ | Medication Order | MAR | Action | Dose | Rate | Site | | | Action | Date | | | | + +--------+ +--------+------+------+ | acetaminophen (aka TYLENOL) | Given | 10/12/19 | 650 mg | | | | tablet 325-650 mg 325-650 mg, | | 13 8:39 | | | | | oral, EVERY 4 HOURS NEEDED, | | AM PST | | | | | Starting 10/07/12 at 2006, | | | | | | | Until 10/12/12 at 2016, mild | | | | | | | pain | | | | | | + +--------+ +--------+------+------+ +-------+ +--------+---+---+ | Given | 10/11/19 | 650 mg | | | | | 13 11:24 | | | | | | PM PST | | | | +-------+ +--------+---+---+ | Given | 10/11/19 | 650 mg | | | | | 13 6:08 | | | | | | PM PST | | | | +-------+ +--------+---+---+ +---+---+ | | | +---+---+ + +-------+ +---------+---+---+ | albuterol (aka PROVENTIL, | Given | 10/09/19 | 4 puffs | | | | VENTOLIN) 90 mcg/actuation | | 13 6:00 | | | | | inhaler 4 Puff 4 puff, | | PM PST | | | | | inhalation, EVERY 4 HOURS, First | | | | | | | dose on Sat10/09/12 at 1999, | | | | | | | Until Discontinued | | | | | | + +-------+ +---------+---+---+ +---+---+ | | | +---+---+ + +-------+ +---------+---+---+ | albuterol (aka PROVENTIL, | Given | 10/11/19 | 4 puffs | | | | VENTOLIN) 90 mcg/actuation | | 13 3:13 | | | | | inhaler 4 Puff 4 puff, | | AM PST | | | | | inhalation, EVERY 4 HOURS | | | | | | | NEEDED, Starting 10/10/12 at | | | | | | | 2251, Until 10/12/12 at 2015, | | | | | | | dyspnea/SOB | | | | | | + +-------+ +---------+---+---+ +---+---+ | | | +---+---+ + +-------+ +--------+---+---+ | albuterol 0.083% (aka | Given | 10/09/19 | 2.5 mg | | | | PROVENTIL,VENTOLIN) 2.5 mg /3 mL | | 13 1:36 | | | | | (0.083 %) nebulizer solution 1 | | PM PST | | | | | dose, Starting Bel 10/09/12 at | | | | | | | 1329, Until Bel 10/09/12 at 1336 | | | | | | + +-------+ +--------+---+---+ +---+---+ | | | +---+---+ + +---------+ +-----+--------+---+ | aztreonam (aka AZACTAM) IV 2 g | New Bag | 10/09/19 | 2 g | mL/hr | | | 2 g, intravenous, EVERY 6 HOURS, | | 13 2:24 | | | | | First dose on Sat10/07/12 at | | PM PST | | | | | 0000, Until Discontinued | | | | | | + +---------+ +-----+--------+---+ +---------+ +-----+--------+---+ | New Bag | 10/09/19 | 2 g | mL/hr | | | | 13 6:04 | | | | | | AM PST | | | | +---------+ +-----+--------+---+ | New Bag | 10/08/19 | 2 g | mL/hr | | | | 13 11:23 | | | | | | PM PST | | | | +---------+ +-----+--------+---+ +---+---+ | | | +---+---+ + +---------+ +--------+--------+---+ | bumetanide (aka BUMEX) | New Bag | 10/07/19 | 0.5 mg | mL/hr | | | injection 0.5 mg 0.5 mg, | | 13 3:04 | | | | | intravenous, ONCE, 1 dose, Tue | | AM PST | | | | | 10/07/12 at 0315 | | | | | | + +---------+ +--------+--------+---+ +---+---+ | | | +---+---+ + +---------+ +--------+--------+---+ | bumetanide (aka BUMEX) | New Bag | 10/07/19 | 0.5 mg | mL/hr | | | injection 0.5 mg 0.5 mg, | | 13 9:45 | | | | | intravenous, ONCE, 1 dose, Tue | | AM PST | | | | | 10/07/12 at 0900 | | | | | | + +---------+ +--------+--------+---+ +---+---+ | | | +---+---+ + +-------+ + +---+---+ | calcium carbonate chewable (aka | Given | 10/12/19 | 300 mg | | | | TUMS) tablet 300 mg elemental | | 13 1:35 | elementa | | | | 300 mg elemental (750 mg total | | PM PST | l | | | | salt), oral, ONCE, 1 dose, Sun | | | | | | | 10/12/12 at 1230 | | | | | | + +-------+ + +---+---+ +---+---+ | | | +---+---+ + +-------+ +-------+---+---+ | chlorhexidine (aka PERIDEX) | Given | 10/07/19 | 15 mL | | | | mouthwash 15 mL 15 mL, oral, | | 13 5:47 | | | | | EVERY 6 HOURS, First dose on Mon | | AM PST | | | | | 10/06/12 at 2200, Until | | | | | | | Discontinued | | | | | | + +-------+ +-------+---+---+ +-------+ +-------+---+---+ | Given | 10/07/19 | 15 mL | | | | | 13 12:21 | | | | | | AM PST | | | | +-------+ +-------+---+---+ +---+---+ | | | +---+---+ + +-------+ +--------+---+---+ | ciprofloxacin (aka CIPRO) | Given | 10/12/19 | 500 mg | | | | tablet 500 mg 500 mg, oral, | | 13 8:10 | | | | | TWICE DAILY, 13 doses, First dose | | AM PST | | | | | on Sat10/09/12 at 2100, Last | | | | | | | dose on Sat10/15/12 at 2100 | | | | | | + +-------+ +--------+---+---+ +-------+ +--------+---+---+ | Given | 10/11/19 | 500 mg | | | | | 13 9:00 | | | | | | PM PST | | | | +-------+ +--------+---+---+ | Given | 10/11/19 | 500 mg | | | | | 13 9:43 | | | | | | AM PST | | | | +-------+ +--------+---+---+ +---+---+ | | | +---+---+ + +-------+ +--------+---+---+ | clindamycin (aka CLEOCIN) | Given | 10/12/19 | 300 mg | | | | capsule 300 mg 300 mg, oral, | | 13 3:00 | | | | | EVERY 6 HOURS, 26 doses, First | | PM PST | | | | | dose on Sat10/09/12 at 1800, Last | | | | | | | dose on Sat10/15/12 at 2200 | | | | | | + +-------+ +--------+---+---+ +-------+ +--------+---+---+ | Given | 10/12/19 | 300 mg | | | | | 13 10:00 | | | | | | AM PST | | | | +-------+ +--------+---+---+ | Given | 10/12/19 | 300 mg | | | | | 13 5:19 | | | | | | AM PST | | | | +-------+ +--------+---+---+ +---+---+ | | | +---+---+ + +---------+ +-------+--------+---+ | esomeprazole (aka NEXIUM) IV 80 | New Bag | 10/06/19 | 80 mg | mL/hr | | | mg 80 mg, intravenous, ONCE, | | 8:26 | | | | | dose, 10/06/12 at 1945 | | PM PST | | | | + +---------+ +-------+--------+---+ +---+---+ | | | +---+---+ + +---------+ +---------+ +---+ | esomeprazole (aka NEXIUM) IV | New Bag | 10/07/19 | 8 mg/hr | 10 mL/hr | | | infusion 8 mg/hr (rounded to | 6:40 | | | | | mL/hr), intravenous, CONTINUOUS, | | AM PST | | | | | Starting 10/06/12 at 1945, | | | | | | | Until 10/07/12 at 0813 | | | | | | + +---------+ +---------+ +---+ +---------+ +---------+ +---+ | New Bag | 10/06/19 | 8 mg/hr | 10 mL/hr | | | | 13 8:26 | | | | | | PM PST | | | | +---------+ +---------+ +---+ +---+---+ | | | +---+---+ + +---------+ +---------+--------+---+ | fentaNYL citrate (PF) (aka | New Bag | 10/07/19 | 100 mcg | mL/hr | | | SUBLIMAZE) injection 25-100 mcg | | 13 1:41 | | | | | 25-100 mcg, intravenous, EVERY 1 | | AM PST | | | | | HOUR NEEDED, Starting Mon | | | | | | | 10/06/12 at 1454, Until Tue | | | | | | | 10/07/12 at 0813, mild pain, | | | | | | | moderate pain | | | | | | + +---------+ +---------+--------+---+ +---------+ +---------+--------+---+ | New Bag | 10/06/19 | 100 mcg | mL/hr | | | | 13 7:51 | | | | | | PM PST | | | | +---------+ +---------+--------+---+ | New Bag | 10/06/19 | 100 mcg | mL/hr | | | | 13 6:23 | | | | | | PM PST | | | | +---------+ +---------+--------+---+ +---+---+ | | | +---+---+ + +-------+ +-------+---+---+ | furosemide (aka LASIX) tablet | Given | 10/09/19 | 20 mg | | | | 20 mg 20 mg, oral, ONCE, 1 dose, | | 13 11:18 | | | | | [place] 10/09/12 at 1000 | | AM PST | | | | + +-------+ +-------+---+---+ +---+---+ | | | +---+---+ + +-------+ +-------+---+---+ | furosemide (aka LASIX) tablet | Given | 10/10/19 | 20 mg | | | | 20 mg 20 mg, oral, ONCE, 1 dose, | | 13 1:26 | | | | | 10/10/12 at 1215 | | PM PST | | | | + +-------+ +-------+---+---+ +---+---+ | | | +---+---+ + +-------+ +-------+---+---+ | furosemide (aka LASIX) tablet | Given | 10/11/19 | 20 mg | | | | 20 mg 20 mg, oral, ONCE, 1 dose, | | 13 9:49 | | | | | 10/11/12 at 1000 | | AM PST | | | | + +-------+ +-------+---+---+ +---+---+ | | | +---+---+ + +-------+ +--------+---+---+ | heparin injection 5,000 Units | Given | 10/12/19 | 5,000 | | | | 5,000 Units, subcutaneous, EVERY | | 13 8:11 | Units | | | | 8 HOURS, First dose on Tue | | AM PST | | | | | 10/07/12 at 0000, Until | | | | | | | Discontinued | | | | | | + +-------+ +--------+---+---+ +-------+ +--------+---+---+ | Given | 10/11/19 | 5,000 | | | | | 13 11:24 | Units | | | | | PM PST | | | | +-------+ +--------+---+---+ | Given | 10/11/19 | 5,000 | | | | | 13 4:00 | Units | | | | | PM PST | | | | +-------+ +--------+---+---+ +---+---+ | | | +---+---+ + +-------+ +-------+---+---+ | hydrALAZINE (aka APRESOLINE) | Given | 10/10/19 | 10 mg | | | | tablet 10 mg 10 mg, oral, FOUR | | 13 11:48 | | | | | TIMES DAILY NEEDED, Starting | | AM PST | | | | | 10/08/12 at 0819, Until Sat | | | | | | | 10/11/12 at 1242, hypertension | | | | | | + +-------+ +-------+---+---+ +-------+ +-------+---+---+ | Given | 10/09/19 | 10 mg | | | | | 13 7:58 | | | | | | PM PST | | | | +-------+ +-------+---+---+ | Given | 10/08/19 | 10 mg | | | | | 13 11:44 | | | | | | PM PST | | | | +-------+ +-------+---+---+ +---+---+ | | | +---+---+ + +-------+ +-------+---+---+ | hydrALAZINE (aka APRESOLINE) | Given | 10/12/19 | 10 mg | | | | tablet 10 mg 10 mg, oral, ONCE, | | 13 12:04 | | | | | 1 dose, 10/12/12 at 0000 | | AM PST | | | | + +-------+ +-------+---+---+ +---+---+ | | | +---+---+ + +---------+ +---------+--------+---+ | HYDROmorphone (aka DILAUDID) | New Bag | 10/07/19 | 0.25 mg | mL/hr | | | injection 0.2-0.5 mg 0.2-0.5 mg, | | 13 6:35 | | | | | intravenous, EVERY 2 HOURS | | AM PST | | | | | NEEDED, Starting 10/07/12 at | | | | | | | 0229, Until e 10/07/12 at 0657, | | | | | | | anxiety | | | | | | + +---------+ +---------+--------+---+ +---------+ +---------+--------+---+ | New Bag | 10/07/19 | 0.25 mg | mL/hr | | | | 13 5:47 | | | | | | AM PST | | | | +---------+ +---------+--------+---+ | New Bag | 10/07/19 | 0.5 mg | mL/hr | | | | 13 3:04 | | | | | | AM PST | | | | +---------+ +---------+--------+---+ +---+---+ | | | +---+---+ + +---------+ +------+--------+---+ | HYDROmorphone (aka DILAUDID) | New Bag | 10/08/19 | 1 mg | mL/hr | | | injection 1 mg 1 mg, | | 13 11:00 | | | | | intravenous, EVERY 2 HOURS | | AM PST | | | | | NEEDED, Starting 10/07/12 at | | | | | | | 0657, Until Sat10/08/12 at 1749, | | | | | | | anxiety | | | | | | + +---------+ +------+--------+---+ +---------+ +------+--------+---+ | New Bag | 10/08/19 | 1 mg | mL/hr | | | | 13 7:40 | | | | | | AM PST | | | | +---------+ +------+--------+---+ | New Bag | 10/08/19 | 1 mg | mL/hr | | | | 13 3:01 | | | | | | AM PST | | | | +---------+ +------+--------+---+ +---+---+ | | | +---+---+ + +-------+ +--------+---+---+ | labetalol (davis NORMODYNE) oral | Given | 10/11/19 | 150 mg | | | | dose 150 mg 150 mg, oral, EVERY | | 13 4:16 | | | | | 6 HOURS, First dose on Fri | | AM PST | | | | | 10/10/12 at 1500, Until | | | | | | | Discontinued | | | | | | + +-------+ +--------+---+---+ +-------+ +--------+---+---+ | Given | 10/10/19 | 150 mg | | | | | 13 8:41 | | | | | | PM PST | | | | +-------+ +--------+---+---+ | Given | 10/10/19 | 150 mg | | | | | 13 4:44 | | | | | | PM PST | | | | +-------+ +--------+---+---+ +---+---+ | | | +---+---+ + +-------+ +--------+---+---+ | labetalol (aka NORMODYNE) | Given | 10/07/19 | 200 mg | | | | tablet 200 mg 200 mg, oral, | | 13 1:00 | | | | | TWICE DAILY, First dose on e | | PM PST | | | | | 10/07/12 at 1345, Until | | | | | | | Discontinued | | | | | | + +-------+ +--------+---+---+ +---+---+ | | | +---+---+ + + + +--------+---+---+ | labetalol (aka NORMODYNE) | See OB | 10/07/19 | 200 mg | | | | tablet 200 mg 200 mg, oral, | [facility]Vue | 13 9:13 | | | | | EVERY 6 HOURS, First dose on Sat | | PM PST | | | | | 10/07/12 at 2100, Until | | | | | | | Discontinued | | | | | | + + + +--------+---+---+ +---+---+ | | | +---+---+ + +-------+ +--------+---+---+ | labetalol (aka NORMODYNE) | Given | 10/10/19 | 300 mg | | | | tablet 300 mg 300 mg, oral, | | 13 9:09 | | | | | EVERY 6 HOURS, First dose on Wed | | AM PST | | | | | 10/08/12 at 0300, Until | | | | | | | Discontinued | | | | | | + +-------+ +--------+---+---+ +-------+ +--------+---+---+ | Given | 10/10/19 | 300 mg | | | | | 13 4:03 | | | | | | AM PST | | | | +-------+ +--------+---+---+ | Given | 10/09/19 | 300 mg | | | | | 13 9:11 | | | | | | PM PST | | | | +-------+ +--------+---+---+ +---+---+ | | | +---+---+ + +---------+ +--------+---------+---+ | labetalol 250 mg IV infusion | New Bag | 10/07/19 | 0.5 | 6 mL/hr | | | 0-2 mg/min (rounded to | | 13 6:51 | mg/min | | | | mL/hr), intravenous, CONTINUOUS, | | AM PST | | | | | Starting Sat10/07/12 at 0245, | | | | | | | Until Sat10/07/12 at 0444 | | | | | | + +---------+ +--------+---------+---+ +---+---+ | | | +---+---+ + +---------+ + + +---+ | labetalol 250 mg IV infusion | New Bag | 10/07/19 | 1 mg/min | 12 mL/hr | | | 0-2 mg/min (rounded to 0-24 | | 13 11:00 | | | | | mL/hr), intravenous, CONTINUOUS, | | AM PST | | | | | Starting Sat10/07/12 at 0730, | | | | | | | Until Sat10/07/12 at 2259 | | | | | | + +---------+ + + +---+ + + + + +---+ | Rate/Dose Change | 10/07/19 | 1 mg/min | 12 mL/hr | | | | 13 10:00 | | | | | | AM PST | | | | + + + + +---+ | New Bag | 10/07/19 | 2 mg/min | 24 mL/hr | | | | 13 9:15 | | | | | | AM PST | | | | + + + + +---+ +---+---+ | | | +---+---+ + +-------+ +-------+---+---+ | lisinopril (aka PRINIVIL) | Given | 10/11/19 | 10 mg | | | | tablet 10 mg 10 mg, oral, DAILY, | | 13 9:00 | | | | | First dose on 10/11/12 at | | AM PST | | | | | 0900, Until Discontinued | | | | | | + +-------+ +-------+---+---+ +---+---+ | | | +---+---+ + +-------+ +-------+---+---+ | lisinopril (aka PRINIVIL) | Given | 10/11/19 | 10 mg | | | | tablet 10 mg 10 mg, oral, ONCE, | | 13 9:44 | | | | | 1 dose, 10/11/12 at 1000 | | AM PST | | | | + +-------+ +-------+---+---+ +---+---+ | | | +---+---+ + +-------+ +--------+---+---+ | lisinopril (aka PRINIVIL) | Given | 10/10/19 | 2.5 mg | | | | tablet 2.5 mg 2.5 mg, oral, | | 13 9:08 | | | | | DAILY, First dose on Bel 10/09/12 | | AM PST | | | | | at 1830, Until Discontinued | | | | | | + +-------+ +--------+---+---+ +-------+ +--------+---+---+ | Given | 10/09/19 | 2.5 mg | | | | | 13 6:14 | | | | | | PM PST | | | | +-------+ +--------+---+---+ +---+---+ | | | +---+---+ + +-------+ +-------+---+---+ | lisinopril (aka PRINIVIL) | Given | 10/12/19 | 20 mg | | | | tablet 20 mg 20 mg, oral, TWICE | | 13 8:10 | | | | | DAILY, First dose on 10/11/12 | | AM PST | | | | | at 1030, Until Discontinued | | | | | | + +-------+ +-------+---+---+ +-------+ +-------+---+---+ | Given | 10/11/19 | 20 mg | | | | | 13 9:00 | | | | | | PM PST | | | | +-------+ +-------+---+---+ | Given | 10/11/19 | 10 mg | | | | | 13 10:49 | | | | | | AM PST | | | | +-------+ +-------+---+---+ +---+---+ | | | +---+---+ + +-------+ +------+---+---+ | lisinopril (aka PRINIVIL) | Given | 10/10/19 | 5 mg | | | | tablet 5 mg 5 mg, oral, ONCE, 1 | | 13 1:26 | | | | | dose, 10/10/12 at 1230 | | PM PST | | | | + +-------+ +------+---+---+ +---+---+ | | | +---+---+ + +---------+ +-----+--------+---+ | magnesium sulfate IV 4 g 4 g, | New Bag | 10/06/19 | 4 g | mL/hr | | | intravenous, ONCE, 1 dose, Sat | | 13 4:51 | | | | | 10/06/12 at 1630 | | PM PST | | | | + +---------+ +-----+--------+---+ +---+---+ | | | +---+---+ + +---------+ +--------+ +---+ | magnesium sulfate IV infusion | New Bag | 10/07/19 | 1 g/hr | 25 mL/hr | | | 1 g/hr (rounded to 25 mL/hr), | | 13 1:00 | | | | | intravenous, CONTINUOUS, Starting | | PM PST | | | | | 10/06/12 at 1645, Until Tue | | | | | | | 10/07/12 at 1815 | | | | | | + +---------+ +--------+ +---+ +---------+ +--------+ +---+ | New Bag | 10/06/19 | 1 g/hr | 25 mL/hr | | | | 13 4:51 | | | | | | PM PST | | | | +---------+ +--------+ +---+ +---+---+ | | | +---+---+ + +-------+ +--------+---+---+ | medroxyPROGESTERone (aka | Given | 10/11/19 | 150 mg | | | | DEPO-PROVERA) injection 150 mg | | 13 2:02 | | | | | 150 mg, intramuscular, ONCE, 1 | | PM PST | | | | | dose, 10/11/12 at 1400 | | | | | | + +-------+ +--------+---+---+ +---+---+ | | | +---+---+ + +---------+ +--------+--------+---+ | metroNIDAZOLE (aka EDITH) IV | New Bag | 10/09/19 | 500 mg | mL/hr | | | 500 mg 500 mg, intravenous, | | 13 3:06 | | | | | EVERY 8 HOURS, First dose on e | | PM PST | | | | | 10/07/12 at 0000, Until | | | | | | | Discontinued | | | | | | + +---------+ +--------+--------+---+ +---------+ +--------+--------+---+ | New Bag | 10/09/19 | 500 mg | mL/hr | | | | 13 4:38 | | | | | | AM PST | | | | +---------+ +--------+--------+---+ | New Bag | 10/08/19 | 500 mg | mL/hr | | | | 13 9:50 | | | | | | PM PST | | | | +---------+ +--------+--------+---+ +---+---+ | | | +---+---+ + + + +-------+-------+---+ | niCARdipine in NS IV infusion | Rate/Dos | 10/07/19 | 7.5 | 37.5 | | | 40mg/200mL piggy back 0.5-15 | e Change | 13 3:29 | mg/hr | mL/hr | | | mg/hr (rounded to 2.5-75 mL/hr), | | AM PST | | | | | intravenous, CONTINUOUS, Starting | | | | | | | 10/06/12 at 1530, Until Tue | | | | | | | 10/07/12 at 0206 | | | | | | + + + +-------+-------+---+ + + +-------+-------+---+ | Rate/Dose Change | 10/07/19 | 7.5 | 37.5 | | | | 13 2:00 | mg/hr | mL/hr | | | | AM PST | | | | + + +-------+-------+---+ | Rate/Dose Change | 10/07/19 | 7.5 | 37.5 | | | | 13 1:00 | mg/hr | mL/hr | | | | AM PST | | | | + + +-------+-------+---+ +---+---+ | | | +---+---+ + +---------+ +-------+-------+---+ | niCARdipine in NS IV infusion | New Bag | 10/07/19 | 2.5 | 12.5 | | | 40mg/200mL piggy back 0.5-15 | | 13 9:30 | mg/hr | mL/hr | | | mg/hr (rounded to 2.5-75 mL/hr), | | AM PST | | | | | intravenous, CONTINUOUS, Starting | | | | | | | 10/07/12 at 0845, Until Tue | | | | | | | 10/07/12 at 4 | | | | | | + +---------+ +-------+-------+---+ +---+---+ | | | +---+---+ + + + +---------+---------+---+ | niCARdipine in NS IV infusion | Rate/Dos | 10/08/19 | 1 mg/hr | 5 mL/hr | | | 40mg/200mL piggy back 0.5-15 | e Change | 13 5:00 | | | | | mg/hr (rounded to 2.5-75 mL/hr), | | AM PST | | | | | intravenous, CONTINUOUS, Starting | | | | | | | 10/07/12 at 2030, Until Wed | | | | | | | 10/08/12 at 1134 | | | | | | + + + +---------+---------+---+ + + +---------+ +---+ | Rate/Dose Change | 10/08/19 | 2 mg/hr | 10 mL/hr | | | | 13 3:45 | | | | | | AM PST | | | | + + +---------+ +---+ | Rate/Dose Change | 10/08/19 | 3 mg/hr | 15 mL/hr | | | | 13 3:30 | | | | | | AM PST | | | | + + +---------+ +---+ +---+---+ | | | +---+---+ + +-------+ +------+---+---+ | oxyCODONE (immediate release) | Given | 10/12/19 | 5 mg | | | | (aka ROXICODONE) tablet 5 mg 5 | | 13 8:39 | | | | | mg, oral, EVERY 4 HOURS | | AM PST | | | | | NEEDED, Starting 10/08/12 at | | | | | | | 1749, Until 10/12/12 at 2015, | | | | | | | severe pain | | | | | | + +-------+ +------+---+---+ +-------+ +------+---+---+ | Given | 10/11/19 | 5 mg | | | | | 13 6:08 | | | | | | PM PST | | | | +-------+ +------+---+---+ | Given | 10/11/19 | 5 mg | | | | | 13 2:01 | | | | | | PM PST | | | | +-------+ +------+---+---+ +---+---+ | | | +---+---+ + +---------+ +-------+--------+---+ | piperacillin-tazobactam (aka | New Bag | 10/06/19 | 4.5 g | mL/hr | | | ZOSYN) IV 4.5 g 4.5 g, | | 13 5:11 | | | | | intravenous, ONCE, 1 dose, Mon | | PM PST | | | | | 10/06/12 at 1730 | | | | | | + +---------+ +-------+--------+---+ +---+---+ | | | +---+---+ + + + + +--------+---+ | propofol (aka MONTYRIVAN) | Rate/Dos | 10/07/19 | 35 | 16.88 | | | injection 0.5-60 mcg/kg/min | e Change | 13 5:00 | mcg/kg/m | mL/hr | | | 80.4 kg Dosing weight (rounded | | AM PST | in | | | | to 0.24-28.94 mL/hr), | | | | | | | intravenous, CONTINUOUS, Starting | | | | | | | 10/06/12 at 1600, Until Tue | | | | | | | 10/07/12 at 0813 | | | | | | + + + + +--------+---+ +---------+ + +-------+---+ | New Bag | 10/07/19 | 40 | 19.3 | | | | 13 1:28 | mcg/kg/m | mL/hr | | | | AM PST | in | | | +---------+ + +-------+---+ | New Bag | 10/06/19 | 40 | 19.3 | | | | 13 8:49 | mcg/kg/m | mL/hr | | | | PM PST | in | | | +---------+ + +-------+---+ +---+---+ | | | +---+---+ + +-------+ +---+---+---+ | senna-docusate (davis FOLEY S) | Given | 10/07/19 | | | | | oral solution 8.8 mg-50 mg | | 13 9:13 | | | | | feeding tube, TWICE DAILY, First | | PM PST | | | | | dose on 10/06/12 at 2100, | | | | | | | Until Discontinued | | | | | | + +-------+ +---+---+---+ +---+---+ | | | +---+---+ + +---------+ +--------+--------+---+ | vancomycin (aka VANCOCIN) IV | New Bag | 10/09/19 | 1.25 g | mL/hr | | | 1.25 g 1.25 g, intravenous, | | 13 11:18 | | | | | EVERY 8 HOURS, First dose on Mon | | AM PST | | | | | 10/06/12 at 1800, Until | | | | | | | Discontinued | | | | | | + +---------+ +--------+--------+---+ +---------+ +--------+--------+---+ | New Bag | 10/09/19 | 1.25 g | mL/hr | | | | 13 1:33 | | | | | | AM PST | | | | +---------+ +--------+--------+---+ | New Bag | 10/08/19 | 1.25 g | mL/hr | | | | 13 8:19 | | | | | | PM PST | | | | +---------+ +--------+--------+---+ +---+---+ | | | +---+---+ + +-------+ +------+---+---+ | zolpidem (akjocelyn MANSFIELD) tablet 5 | Given | 10/11/19 | 5 mg | | | | mg 5 mg, oral, AT BEDTIME | | 13 9:00 | | | | | NEEDED, Starting 10/08/12 at | | PM PST | | | | | 2211, Until 10/12/12 at 2016, | | | | | | | insomnia | | | | | | + +-------+ +------+---+---+ +-------+ +------+---+---+ | Given | 10/10/19 | 5 mg | | | | | 13 8:41 | | | | | | PM PST | | | | +-------+ +------+---+---+ | Given | 10/09/19 | 5 mg | | | | | 13 9:11 | | | | | | PM PST | | | | +-------+ +------+---+---+ +---+---+ | | | +---+---+ documented in this encounter
--- OUTSIDE RECORDS SUMMARY | ~2019-02-21 | XMS | Encounter Summary ---
Demographics + + + | Address | [address] | | | [place] [address] | + + + | Home Phone | | + + + | Preferred Language | Unknown | + + + | Marital Status | Single | + + + | Hindu Affiliation | NON | + + + | Race | White | + + + | Ethnic Group | Not or | + + + Author + + + | Author | [facility] | + + + | Organization | [facility] | + + + | [...] Team Providers + +------+ + | Care Flat Surfacer Name | Role | Phone | + +------+ + PCP | Unavailable | + +------+ + Reason for Visit + + + | Reason | Comments | + + + | Thrombophlebitis | | + + + Encounter Details +--------+ + + + + | Date | Type | Department | Care Team | Description | +--------+ + + + + | 10/04/ | Emergency | [facility] | | | | 2012 | | Department [address] | | | | | | [address] | | | | | | [facility] | | | | | | [place] [address] | | | | | | [phone] | | | +--------+ + + + + Social History + +-------+ +--------+------+ | Tobacco Use | Types | Packs/Day | Years | Date | | | | | Used | | + +-------+ +--------+------+ | Never Assessed | | | | | + +-------+ +--------+------+ + + + | Sex Assigned at [...] + + documented as of this encounter Plan of Treatment Not on filedocumented as of this encounter Visit Diagnoses Not on filedocumented in this encounter"
--- OUTSIDE RECORDS SUMMARY | ~2019-02-21 | XMS | Clinical Summary ---
Demographics + + + | Address | [address] | | | [place] [address] | + + + | Home Phone | | + + + | Preferred Language | Unknown | + + + | Marital Status | Single | + + + | Voodoo Affiliation | NON | + + + | Race | White | + + + | Ethnic Group | Not or | + + + Author + + + | Author | [facility] | + + + | Organization | [facility] | + + + | Address | Unknown | + + + | Phone | Unavailable | + + + Support + + +---------+ + | Name | Relationship | Address | Phone | + + +---------+ + | Carmen Bustillos | ECON | Unknown | | + + +---------+ + | Kyle Sultana | ECON | Unknown | | + + +---------+ + Care Team Providers + +------+ + | Care Seasoning Sprayer Name | Role | Phone | + +------+ + | Arely Rojo MD | PP | | + +------+ + Source Comments EMERSON is fully live on both EpicCare Ambulatory and EpicCare InPatient.[facility] Allergies + + + + + + | Active Allergy | Reactions | Severity | Noted | Comments | | | | | Date | | + + + + + + | Penicillins | Edema | | 10/06/19 | | | | | | 13 | | + + + + + + Medications + + + +---------+------+------+-------+ | Medication | Sig | Dispensed | Refills | Star | End | Statu | | | | | | t | Date | s | | | | | | Date | | | + + + +---------+------+------+-------+ | albuterol 90 | Inhale 2 Puffs every | | 0 | | | Activ | | mcg/actuation | six hours as | | | | | e | | Inhalation HFA | needed. For | | | | | | | Aerosol Inhaler | shortness of breath, | | | | | | | | asthma attack or | | | | | | | | cough | | | | | | + + + +---------+------+------+-------+ | ibuprofen 800 mg | Take 800 mg by mouth | | 0 | | | Activ | | Oral tablet | every six hours as | | | | | e | | | needed. | | | | | | + + + +---------+------+------+-------+ | lisinopril 20 mg | Take 1 Tab by mouth | 30 Tab | 0 | 09/17 | | Activ | | Oral tablet | two times daily. | | | 04/04 | | e | | | | | | 13 | | | + + + +---------+------+------+-------+ Active Problems + + + | Problem | Noted Date | + + + | Respiratory failure with hypoxia | 10/06/2012 | + + + Social History + +-------+ [...] recent travel history available. | + + Last Filed Vital Signs + + + [...] | | + + + + + Plan of Treatment + + + + + | Health Maintenance | Due Date | Last Done | Comments | + + + + + | Pneumococcal (Adult) | | | | | (1 of 1 - PPSV23) | 0 | | | + + + + + | Influenza (Flu) | | | | | vaccination (Season | 9 | | | | Ended) | | | | + + + + + Results Not on filefrom Last 3 Months Insurance + +--------+ +--------+-------+---------+--------+ | Payer | Benefi | Subscriber | Effect | Phone | Address | Type | | | t Plan | ID | ayad | | | | | | / | | Dates | | | | | | Group | | | | | | + +--------+ +--------+-------+---------+--------+ | FINISH PATCHER MEDICAID | FINISH PATCHER | xxxxxxxx | | | | Medica | | | [place] | | 012-Pr | | | id | | | [place] | | esent | | | | + +--------+ +--------+-------+---------+--------+ + +--------+ +--------+ + + | Guarantor Name | Accoun | Relation to | Date | Phone | Billing Address | | | t Type | Patient | of | | | | | | | | | | + +--------+ +--------+ + + | Imani Epstein | Person | Self [birth year] | [address] | | | al/Fam | | 1979 | [phone] | [place] [address] | | | meli | | | 0 (Home) | | + +--------+ +--------+ + + | Imani Epstein | Global | Self | [birth year] | [address] | | | OB | | 1979 | [phone] | [place] [address] | | | | | | 0 (Home) | | + +--------+ +--------+ + + Advance Directives + + + + + | Code Status | Date | Date | Comments | | | Activated | Inactivated | | + + + + + | Full Code | 10/06/2012 | 10/12/2012 | | | | 2:54 PM | 8:16 PM | | + + + + +
--- OUTSIDE RECORDS SUMMARY | ~2019-02-21 | XMS | Clinical Summary ---
Demographics + + + | Address | [address] | | | [place] [address] | + + + | Home Phone | | + + + | Preferred Language | Unknown | + + + | Marital Status | Single | + + + | Mormonism Affiliation | NON | + + + [...] Team Providers + +------+ + | Care Steam Fitter Name | Role | Phone | + +------+ + | Arely Rojo MD | PP | | + +------+ + Source Comments EMERSON is fully live on both EpicCare Ambulatory and EpicCare InPatient.[facility] Allergies + + + + + + [...] | | | + +--------+ +--------+-------+---------+--------+ | ELECTRICAL REPAIRER MEDICAID | ELECTRICAL REPAIRER | xxxxxxxx | | | | Medica [...] | 1979 | [phone] | [place] [address] | | | meli | | | 0 (Home) | | + +--------+ +--------+ + + | Imani Epstein | Global | Self | [birth year] | [address] | | | OB | | 1979 | [phone] | [place] [address] | | | | | | 0 [...]
--- OUTSIDE RECORDS SUMMARY | ~2019-02-21 | XMS | Encounter Summary ---
Demographics + + + | Address | [address] | | | [place] [address] | + + + | Home Phone | | + + + | Preferred Language | Unknown | + + + | Marital Status | Single | + + + | Baptism Affiliation | NON | + + + | Race | White | + + + | Ethnic Group | Not or | + + + Author + + + | Author | [facility] | + + + | Organization | [facility] | + + + | Address | [...] Team Providers + +------+ + | Care Dialysis Registered Nurse Name | Role | Phone | + [...] + + | 10/04/ | Emergency | [facility] | | | | 2012 | | Department [address] | | | | | | [address] | | | | | | [facility] | | | | | | [place] [address] | | | | | | [phone] | | | +--------+ + + + [...]
--- OUTSIDE RECORDS SUMMARY | ~2019-02-21 | XMS | Encounter Summary ---
Demographics + + + | Address | [address] | | | [place] [address] | + + + | Home Phone | | + + + | Preferred Language | Unknown | + + + | Marital Status | Single | + + + | Anabaptist Affiliation | NON | + + + | Race | White | + + + | Ethnic Group | Not or | + + + Author + + + | Author | [facility] | + + + | Organization | [facility] | + + + | Address [...] Team Providers + +------+ + | Care Swing Type Lathe Operator Name | Role | Phone | + [...] | | | | | Luke, | [facility] [address] | | | | | TRANSTHORACI | Madelyn Wright, | Mariano Kirkland | | | | | C | MD [address] | | | | | ECHOCARDIOGR | [employer] | Mailcode: | | | | | AM, ADULT | [address] | [address] | | | | | | [place], | [facility] | | | | | | [place] | [facility] | | | | | | Phone: | [place], [place] | | | | | | [phone] | [address] | | | | | | Fax: | Phone: | | | | | | [phone] | [phone] | +--------+--------+ + + + + Diagnostic [...] | | | | | Diveronica, | [facility] [address] | | | | | TRANSTHORACI | Mdaelyn Wright, | Mariano Kirkland | | | | | C | [address] | | | | | ECHOCARDIOGR | [employer] | Mailcode: | | | | | AM, ADULT | [address] | [address] | | | | | | [place], | [facility] | | | | | | [place] | [facility] | | | | | | Phone: | [place], [place] | | | | | | [phone] | [address] | | | | | | Fax: | Phone: | | | | | | [phone] | [phone] | +--------+--------+ + + + + Reason [...] Encounter | [address] | [address] | | | | | [place], [place] | [address] | | | 10/12/ | | [address] | [place], [place] | | | 2012 | | [phone] | [address] | | | | | | [phone] | | | | | | | | | | | | Meenakshi Sanders, | | | | | | [address] | | | | | | [address] | | | | | | [place], [place] | | | | | | [address] | | | | | | [phone] | | | | | | | [...] smoking, who was transferred to the [facility] MICU for acute respiratory failur e likely [...] shortness of breath. She was admitted to [facility] 09/28 and was found to have a L arm septic thrombophlebitis. 10/01, she was taken to the OR for thrombectomy and rem oval of 20cm vein. Then, 10/05, she had acute onset of hypoxic respiratory failure which requ ired intubation. She was transferred to [facility] for additional care. # Hypertensive emergency/ pre-eclampsia: Ms. Rosario initially presented to [facility] with hypoxic respiratory failure likely 2/2 flash pulmonary edema in the setting of hype rtension likely related to pre-eclampsia and compounded by underlying hypertension. She was initially treated with IV nifedipine and labetalol. [facility] was consulted who advised that her s [...] # Septic Thrombophlebitis: During her hospitalization at [facility], the patient was fou nd to have septic thrombophlebitis and underwent thrombectomy 10/01. Here at [facility], she was se en in ICU by EGS. Retention sutures were remvoed 10/07 and surgery recommended wet to dry amando ssings. Also on transfer to, Ms. Rosario was receiving IV antibiotics: vanc+cefepime (10/01-09/17 0); flagyl+aztreonam+vanc (10/06-). However, given pt's poor access, she was transitioned t o PO therapy with cipro + clinda to finish her course. On follow-up of [facility] blood c ultures, they were no growth from 10/01 and 10/03. Pt was given teaching on dressing changes a nd proved materials on discharge. She was instructed to perform daily dressing changes. - Clindamycin 300mg Q6h, Cipro 500mg BID (stop date10/15) - F/U with [place] surgery 2 weeks # Hypoxic Respiratory Failure: [...] up with KIANA ROJO MD. 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 DC today. .I spent > 35 minutes [...] imaging rev iewed. Whit Morgan MD [facility] Division of General Internal Medicine & Geriatrics EPIC DEPARTMENT: [id number]- [facility] Faculty PPV Place of Service:- Inpatient Date of Service: 10/12/2012 CSN: [id number] Suggested Modifier: GC Resident Involved: Yes Suggested CPT: 20715- Subsequent, Detailed/high complex, 35 min Whit Daniel [...] today. We reviewed post precautions, plan for middle or intermediate school principal contraception (i nterval BTL), PET warning signs [...] - planning on living with "friends in [place]" #3children in foster care #Family planning-rediscuss clot risk less with progestin compared to estrogen. Alt is Miren a IUD. #polysubstance addiction #dispo-pt reports having arranged inpatient rehab intake M 10/13 [place] with plan to stay in [facility] S 10/12 in [place]. ROLANDA Nicole 10/12 am. I personally interviewed the patient, performed the rosales elements of the physical examinatio n, and agree with my team's assessment and plan as outlined in their documentation. I have n oted any additions or exceptions above. ROS otherwise negative. Meds, labs and imaging rev iewed. Whit Morgan MD [facility] Division of General Internal Medicine & Geriatrics [facility] DEPARTMENT: [id number]- [facility] Faculty PPV Place of Service:- Inpatient Date of Service: 10/11/2012 CSN: [id number] Suggested Modifier: GC Resident Involved: Yes Suggested CPT: 27760- Subsequent Exp Prob Foc/mod complex, 25 min [...] Date 10/11/12 07 - 10/12/12 0659 Shift [id number] 6721-2562 1659-1280 24 Hour Total I N T A [...] who was transfer red to the [facility] MICU for acute respiratory failure likely 2/2 [...] (10/01-10/05); flagyl+aztreonam+vanc (10/06-) - F/U with [facility] EGS vs Tripp surgery F/U 2 weeks [...] plan. Magy Saleem Internal Medicine PGY-1 P: [phone] evgeniy, Mario Mckenzie MD - 0 10/11/2012 10:13 AM PST [facility] DEPARTMENT OF SURGERY EMERGENCY GENERAL SURGERY Division of Trauma and Critical Care Progress Note Note Date: 10/11/2012 Admission Date: 10/06/2012 KENDALL MARLENE, [id number] Hospital Day #5 OVERNIGHT EVENTS: No events. [...] failure with hypoxia MARIO WHIPPLE MD [facility] [address] [place] [phone] Franck Morataya MD - 10/11/2012 8:03 AM [...] by respiratory distress requiring transfer to [facility] MICU, and intubation and ventilation. Medical history [...] by respiratory distress requiring transfer to [facility] MICU, and intubation and ventilation . Medical [...] s/p RCS @35 weeks for pre-eclampsia in [place]. cour se complicated by septic thrombophlebitis of the left cephalic vein s/p thrombectomy, follow ed by respiratory distress requiring transfer to [facility] MICU, and intubation and ventilation. Medical history [...] by respiratory distress requiring transfer to [facility] MICU, and intubation and ventilation . Medical [...] desires permanent contraception and si gned an [facility] consent on 09/25. -Patient agreeable today for depo-provera prior to discharge. Category 2 per CDC medical el igibility criteria for well-controlled HTN, however Category 3 (risks generally outweigh mray efits) for >160/110. If patient continues along [...] pt with options for rehab facilities in [facility] Current Symptoms: Pt states that she is feeling better overall. Her LE edema has improved, as has the swellin g and redness of her RUE. She is ambulating well. No respiratory complaints. The pt reports that she is interested in entering rehab in the [place] area in an effort to regain custody [...] Date 10/10/12 07 - 10/11/12 0659 Shift [id number] 1690-4695 8791-4405 24 Hour Total I N T A [...] who was transfer red to the [facility] MICU for acute respiratory failure likely 2/2 [...] plan. Magy Saleem Internal Medicine PGY-1 P: [phone] arrisMeenakshi erickson MD - 10/10/2012 8:54 AM [...] is a chronic methamphetamine abuser, homeless, from [place]. She is now wanting to leave the hospital and go "live with clean friends" She also said 'I have a few egg caser' We advised she makes a plan to [...] 50 % was care coordination and counseling. [facility] DEPARTMENT: Hosp- [id number] Place of Service: - [id number] Date of Service: 10/09/2012 CSN: [id number] Modifiers:GC Resident Involved: Yes Suggested CPT: 14665 Subsequent Visit Detailed/High complexity 35 min Jeovanny [...] 32 y.o. Female who is transferred from [facility] with severe pre-eclamps ia characterized by malignant [...] Jeovanny Kunz MD Internal Medicine, PGY-3 Pager [phone] Interval Events: - No dyspnea currently. Lower [...] is a chronic methamphetamine abuser, homeless, from [place]. #.Preeclampsi is improved BP control. #Hypoxic Respiratory [...] 50 % was care coordination and counseling. [facility] DEPARTMENT: Hosp- [id number] Place of Service: IP - Date of Service: 10/09/2012 CSN: [id number] Modifiers:GC Resident Involved: Yes Suggested CPT: 28429 Subsequent Visit Detailed/High complexity 35 min Jacquelyn Moses MD - 8:06 AM PST [facility] DEPARTMENT OF SURGERY EMERGENCY GENERAL SURGERY Division of Trauma and Critical Care Progress Note Note Date: 10/09/2012 Admission Date: 10/06/2012 KENDALL ROSARIO, [id number] Hospital Day #3 INTERVAL EVENTS: No acute [...] and p ramón. JACQUELYN RANDOLPH MD Pager [phone] [facility] [place] [address] [place] [address] achaparro, MD Davon - 2012 6:12 AM PST CONSULT NOTE Date of service: 10/09/2012 ID: 32 y.o. on POD#15 s/p Repeat Section @35 weeks for Pre-eclampsia in [facility]. course complicated by respiratory distress and septic thrombophlebitis. Patient was transferred from [place] to the [facility] MICU for acute respiratory failure requi ring [...] on magnesium sulfate prior to transfer to [place]. Interval Hx: Patient denies SOB/CP. She denies [...] 10/06/12 X-RAY PORTABLE CHEST 1 VIEW: STUDY: [place] CHEST 1 VIEW 10/06/12 15:25:00 INDICATION: Hypoxic [...] y.o. female admitted as a transfer from [place] for acute respi ratory distress in the [...] nicardipine drip. Xray upon admission to [facility] shows pulmonary edema an d possible upper [...] kentrell inhibitor, tctz or diuretic now. Desires fpc contraception - prior to discharge either btl or iud consideration. The majority of time for this visit, greater than 50%, was spent in counseling and/or coor dination of care secondary to bp management. The total physician floor time I spent reviewin g the chart and seeing the patient was 25 minutes. minutes. [facility] DEPARTMENT: [id number]- [facility] PERINATOLOGY PPV Place of Service:[id number] - IP Date of Service: 10/09/2012 CSN: [id number] Suggested CPT: 27753 - Subsequent, Exp Prob Foc/Mod Complex 25 min Suggested Procedure CPT: Suggested Diagnosis: Carmen Costa MD - 10/08/2012 10:22 PM PST R4 RESIDENT SERVICES COORDINATOR Consult Note Date: 10/08/2012 Per chart review, [...] patient in the am Carmen Cunningham MD RESIDENT SERVICES COORDINATOR PGY-4 Magy Mahoney MD - 10/08/2012 2:57 PM PST General Internal Medicine 4 Transfer Accept Note Brief Hospital Course: Ms. Rosario is a 32yo woman with a PMH significant for pre-eclampsia in 3 pregnancies, active methamphetamine use by smoking, who was transferred from [facility] for managem ent of hypoxic respiratory failure. The pt was 2 weeks post- s/p delivered e candido for pre-eclampsia. Her initial hospital course was complicated by hypertension, hyperre flexia, and proteinuria (4+). She was discharged in stable condition and then presented back to the hospital 12 hours later with acute onset of shortness of breath. She was admitted to [facility] 09/28 and was found to have a L arm septic thrombophlebitis. 10/01, she was taken to the OR for thrombectomy and removal of 20cm vein. Then, 10/05, she had acute onset of hyp oxic respiratory failure which required intubation. She was transferred to [facility] for addition al care. At [facility], MFM was consulted and stated that the [...] who was transfer red to the [facility] MICU for acute respiratory failure likely 2/2 [...] drug use (17d sober from meth), tho [facility] denies IVDU. To facilitate d/c, it [...] plan. Magy Saleem Internal Medicine PGY-1 P: [phone] signed by Magy Saleem MD at 10/08/2012 7:56 PM PSTJeovanny Kunz MD - 10/08/2012 2:36 PM PST Brief Resident Transfer Accept Note Kendall Rosario is a 32 y.o. Female with a history of active Methamphetamine use, prior pregnanci es complicated with pre-eclampsia, poor pre-mone nutrition, who is transferred from [facility] in [place] for management of Hypoxic Respiratory failure and [...] was then transferred here to the [facility] ICU for management of her res piratory [...] 32 y.o. Female who is transferred from [facility] with severe pre-eclamps ia characterized by malignant [...] Kunz MD Internal Medicine Resident, PGY-3 Pager [phone] Vero Hunter MD - 10/08/2012 8:00 AM [...] sepsis/thrombophle bitis. No new culture data ([facility] for outside hospital). Needs a 14d course [...] 52* PO2 84 51* HCO3 29* 29* [id number] 30* 31* B2BNYWJY 96.9 83.7* [id number] -- -- FIO2 .4 .5 Lab Results [...] terminates beneath the diaphragm and outside the djpfw-pf-xtmj. A mild groundglass opacification the lungs wit [...] signed / Willian Mcghee 10/07/2012 14:21 PM [facility] DEPARTMENT: [facility] [place]- [id number] Place of Service: Date of Service: 10/08/2012 CSN: [id number] Modifiers:GC Resident Involved: yes Suggested CPT: 18508 Critical Care, Initial 30-74 minutes Cristi Landis, [facility] J - 10/08/2012 7:19 AM PST . MICU PROGRESS NOTE AND TRANSFER SUMMARY Author: MADELYN WATSON MD Attending Physician: Vero Galarza MD PCP: Kiana Rojo MD HOSPITAL COURSE: Ms. Rosario is a 32 yo female with history of IVDU, bipolar II and 2 weeks post s/p C- section for pre-eclampsia transferred from [facility] in [place] for management of hypoxi c respiratory failure requiring intubation on 10/06. Ms. Rosario was admitted to [place] ([facility]) on 09/28 for respiratory distress. She was [...] 52* PO2 84 51* HCO3 29* 29* IFPCQ7QAH 30* 31* Y4UBXAKC 96.9 83.7* Q1KARAAGT -- -- FIO2 .4 .5 CULTURE DATA: [...] . She reports seeing "Artur Garcia" in [place], her [facility] though was not able to [...] MADELYN WATSON MD Internal Medicine PGY1 Pager [phone] Vero Cuello MD - 10/08/2012 2:27 AM PSTI saw the patient on rounds and agree with the assesment and plan as outlined in this note and participated in the planning of the patient's care. Vero Mederos MD [id number] Mario Huffman MD - 10/08/2012 2:27 AM [...] injection 5,000 Units, 5,000 Units, Subcutaneous, Q8H, Jeoavnny Aguero MD, 5,000 Units a t 10/07/12 [...] MARIO WHIPPLE MD Surgery Resident, R3 Diagnoses: [id number] Respiratory failure with hypoxia Brandon Fu MD [...] who is critically ill. Brandon Hurtado MD [facility] associate Pulmonary and Critical Care Medicine [facility] DEPARTMENT: [facility]- [id number] Place of Service: - Date of Service: 10/08/2012 CSN: [id number] Modifiers:GC Resident Involved: yes Suggested CPT: 96060 Critical Care, Initial 30-74 minutes Yan Stark [...] of which was for routine post care. [facility] DEPARTMENT: [id number]- [facility] PERINATOLOGY PPV Place of Service: - Date of Service: 10/07/2012 CSN: [id number] Suggested CPT: 94313 - Subsequent, Detailed/High complex 35 min Suggested Diagnosis: respiratory failure MATTHEW GLASGOW MD [facility] [id number] [address] Zuri Edmond MD - 10/07/2012 8:49 AM PSTFormatting of this note might be different from the origi nal. CONSULT NOTE Date of service: 10/07/2012 ID: 32 y.o. on POD#13 s/p Repeat Section @35 weeks for Pre-eclampsia in [facility]. course complicated by respiratory distress and septic thrombophlebitis. Patient was transferred from [place] to the [facility] MICU for acute respiratory failure requi ring [...] on magnesium sulfate prior to transfer to [place]. Interval Hx: This morning patient is doing [...] only went home from the hospital in [place] for 12 hours before she returned for [...] 10/06/12 X-RAY PORTABLE CHEST 1 VIEW: STUDY: [place] CHEST 1 VIEW 10/06/12 15:25:00 INDICATION: Hypoxic [...] y.o. female admitted as a transfer from [place] for acute respi ratory distress in the context of likely pre eclampsia at 2 weeks s/p de [facility]. Per chart review, her course was complicated by sepsis s/p septic thrombo pheblitis of L cephalic vein s/p excision of infected vein 20-30cm. During that hospitalizat ion, the patient developed hypoxemia and HTN. She required intubation and treatment of her H TN with labetolol and nicardipine drip. Xray upon admission to [facility] shows pulmonary edema an d possible upper [...] 52* PO2 84 51* HCO3 29* 29* QGQKV3ZAV 30* 31* P6DHJADW 96.9 83.7* I5YACWSSK -- -- FIO2 .4 .5 Lab Results Component Value Date INRPT 1.07 10/06/2012 Lab Results Component Value Date LACTICACID 0.8 10/06/2012 No Data Recorded Last Last CBG's POC Lab Results Component Value Date GLU 128* 10/07/2012 GLU 88 10/06/2012 CXR * 10/06/2012 Value: STUDY: [place] CHEST 1 VIEW 10/06/12 15:25:00 INDICATION: Hypoxic [...] signed / Ezio Bautista 10/06/2012 17:21 PM [facility] DEPARTMENT: MICU, [place]- [id number] Place of Service: Date of Service: 10/07/2012 CSN: [id number] Modifiers:GC Resident Involved: yes Suggested CPT: 82413 Critical Care, Initial 30-74 minutes 9 Cristi Landis, [facility] Kyle - 10/07/2012 6:05 AM PST . MICU PROGRESS NOTE Author: MADELYN WATSON MD Attending Physician: Vero Galarza MD PCP: Kiana Rojo MD ID: Ms. Rosario is a 32 yo female with history of IVDU, bipolar II and 2 weeks post s/p C- section for pre-eclampsia transferred for ventilatory management from [facility] in [facility] on. 24hr events: -Admit to [...] injection 25-100 mcg, 25-100 mcg, Intravenous, Q1H [place] N, Jeovanny Aguero MD, 100 mcg at [...] 52* PO2 84 51* HCO3 29* 29* YVIFJ7BGE 30* 31* P2CFXCYK 96.9 83.7* T1ASFWHNO -- -- FIO2 .4 .5 CULTURE DATA: [...] MADELYN WATSON MD Internal Medicine PGY-2 Pager [phone] Francis Kaplan MD - 10/06/2012 7:04 PM PSTI have seen and examined this patient and reviewed the note d ated 10/06/[address] Rodriguez and I agree with her assessment and plan. The majority of time for this visit, greater than 50%, was spent in counseling and/or coordination of care svetlana degroot to hypertension, respiratory distress, pulmonary edema, suspected preeclampsia. The located within [facility] physician floor time reviewing the chart and seeing the patient was 30 minutes. Start Mg SO4 for possible preeclampsia, seizure prophylaxis - check urine dip for protein and uric ac id. Discussed work up and options for treatment of hypertension with critical care team. [facility] DEPARTMENT: [id number]- [facility] PERINATOLOGY PPV Place of Service:[id number] - IP Date of Service: 10/06/2012 CSN: [id number] Suggested CPT: 33983 - Initial, Detailed; low complex 30 min Suggested Diagnosis: Respiratory distress, pulmonary edema, hypertension, possible preecla mpsia Elijah Wilhelm MD, [facility] Wire Puller Division of Maternal- Medicine [facility] hyanne Rodriguez MD - 10/06/2012 7:04 PM PSTM Fellow 32yo transferred from [place] to MICU with history of IVDU s/p [...] PST MICU Attg. Progress Note transferred from [place] with ?septic emboli. A/P: 32F with h/o [...] Particularly with preeclampsia. Check urine protein. Awaiting [facility] recs. I examined the patient myself. I [...] injection 5,000 Units 5,000 Units Subcutaneous Q8H eJovanny Aguero MD menthol-zinc oxide (aka CALAZIME) topical [...] 10/06/2012 MCV 87.6 10/06/2012 RDW 16.1 10/06/2012 [facility] DEPARTMENT: [facility] [id number] Place of Service: Date of Service: 10/06/2012 CSN: [id number] Modifiers:GIOVANNY Resident Involved: yes Suggested CPT: 26035 Critical Care, Initial 30-74 minutes documented in [...] | + + + + + | [facility] | [address] | [place] [address] | | | SERVICES, CORE | PARK [...] | + + + + + | [facility] | [address] | [place] [address] | | | SERVICES, CORE | GEOVANY [...] + + | [facility] | [address] | [place] [address] | | | SERVICES, CORE | PARK [...] + + + + + | [facility] | [address] | [place] [address] | | | SERVICES, CORE | PARK [...] | + + + + + | [facility] | [address] | [place] [address] | | | SERVICES, CORE | GEOVANY [...] [facility] | [address] | [place] [address] | | | SERVICES, CORE | GEOVANY [...] [facility] | [address] | [place] [address] | | | SERVICES, CORE | PARK [...] [facility] | [address] | [place] [address] | | | SERVICES, CORE | PARK [...] [facility] | [address] | [place] [address] | | | SERVICES, CORE | PARK [...] + + + + + | [facility] | [address] | [place] [address] | | | SERVICES, CORE | [address] | | | + + + + + MAGNESIUM, PLASMA (10/09/2012 7:51 AM PST) + +---------+ + + + | Component | Value | Ref Range | Performed | Pathologist | | | | | At | Signature | + +---------+ + + + | MAGNESIUM,P | 1.7 (L) | 1.8 - 2.5 mg/dL | [facility] | | | LASMA | | | [...] [facility] | [address] | [place] [address] | | | SERVICES, CORE | PARK [...] [facility] | [address] | [place] [address] | | | SERVICES, CORE | PARK [...] + + | [facility] | [address] | [place] [address] | | | SERVICES, CORE | PARK [...] | + + + + + | [facility] | [address] | [place] [address] | | | SERVICES, [place] | GEOVANY [...] [facility] | [address] | [place] [address] | | | SERVICES, CORE | PARK [...] [facility] | [address] | [place] [address] | | | SERVICES, CORE | PARK [...] + + + + + | [facility] | [address] | [place] [address] | | | JEFF, CORE | [address] | | | + + + + + MAGNESIUM, PLASMA (10/08/2012 2:47 AM PST) + +-------+ + + + | Component | Value | Ref Range | Performed | Pathologist | | | | | At | Signature | + +-------+ + + + | MAGNESIUM,P | 2.5 | 1.8 - 2.5 mg/dL | [facility] | | | [facility] | | | [...] + + + + + | [facility] | [address] | [place] [address] | | | SERVICES, CORE | PARK [...] [facility] | [address] | [place] [address] | | | SERVICES, CORE | PARK [...] the | | | | | | [id number]. A mild | | | | | [...] | | + +---------+ + + | [facility] | | | | | RADIOLOGY | [...] [facility] | [address] | [place] [address] | | | SERVICES, CORE | GEOVANY [...] [facility] | [address] | [place] [address] | | | SERVICES, CORE | PARK [...] [facility] | [address] | [place] [address] | | | SERVICES, CORE | PARK [...] | + + + + + | [facility] | [address] | [place] [address] | | | SERVICES, CORE | GEOVANY [...] | + + + + + | [facility] | [address] | [place] [address] | | | SERVICES, CORE | PARK [...] + + + | SPEC TYPE | Nasal/SQUARE SHEAR OPERATOR swab | (none) | [facility] | | [...] + + + | Test done at [facility] | [facility] | | | [facility] | | | SHAWNEE AGUILAR | + + + + + + + + | Performing | Address | City/State/Zipcode | Phone Number | | Organization | | | | + + + + + | [facility] | [address] | [place] [address] | | | SHAWNEE AGUILAR | GEOVANY [...] | + + + + + | [facility] | [address] | [place] [address] | | | SERVICES, CORE | GEOVANY [...] [facility] | [address] | [place] [address] | | | SERVICES, CORE | PARK [...] [facility] | [address] | [place] [address] | | | SERVICES, CORE | PARK [...] | + + + + + | [facility] | [address] | [place] [address] | | | SERVICES, | [address] [...] | | | | Final | | [place] | | | | GRAM STAIN:No squamous [...] + | [facility] | [address] | [place] [address] | | | [facility] | | | | + [...] [facility] | [address] | [place] [address] | | | SERVICES, CORE | PARK [...] | + + + + + | [facility] | [address] | [place] [address] | | | SERVICES, | [address] [...] [facility] | [address] | [place] [address] | | | SERVICES, | [address] [...] [facility] | [address] | [place] [address] | | | SERVICES, CORE | [address] | | | + + + + + INR (10/06/2012 3:38 PM PST) + +-------+ + + + | Component | Value | Ref Range | Performed | Pathologist | | | | | At | Signature | + +-------+ + + + | INR | 1.07 | 0.90 - 1.20 INR | [facility] | | | | | | LAB[facility]ATORY [...] + + + + + | [facility] | [address] | [place] [address] | | | JEFF, SHAWNEE | [address] | | | + + + + + MAGNESIUM, PLASMA (10/06/2012 3:38 PM PST) + +-------+ + + + | Component | Value | Ref Range | Performed | Pathologist | | | | | At | Signature | + +-------+ + + + | MAGNESIUM,P | 1.8 | 1.8 - 2.5 mg/dL | [facility] | | | [facility] | | | [...] + + | [facility] | [address] | [place] [address] | | | SERVICES, CORE | PARK [...] | + + + + + | [facility] | [address] | [place] [address] | | | SERVICES, CORE | GEOVANY [...] | + + + + + | [facility] | [address] | [place] [address] | | | SERVICES, CORE | GEOVANY [...] | | | | Fin | | [place] | | | | al CULTURE RESULT:No [...] + | [facility] - | [address] | [place] [address] | | | [place] | | | | + + + [...] | + + + + + | [facility] | [address] | [place] [address] | | | SERVICES, CORE | GEOVANY [...] | + + + + + | [facility] | [address] | [place] [address] | | | SERVICES, CORE | PARK [...] | + + + + + | [facility] | [address] | [place] [address] | | | SERVICES, CORE | PARK [...] | | + +---------+ + + | [facility] DEPARTMENT OF | | | | | RADIOLOGY | | | | + +---------+ + + X-RAY PORTABLE CHEST 1 VIEW (10/06/2012 3:25 PM PST) + + + + + + | Component | Value | Ref Range | Performed | Pathologist | | | | | At | Signature | + + + + + + | X-RAY | STUDY: [place] CHEST 1 VIEW | | | | [...]
[~2019-02-21 11:24] MED LIST changes: +NARCAN4 MG NAS; +NORCO 7.5-3251 EACH PO; +SENNA LAX8.6 MG PO
--- OUTSIDE RECORDS SUMMARY | 2019-02-21 11:26 | XMS ---
PreManage Notification: CHARISSA ROSARIO Security Academic Coach Events No recent Security Events currently on file CRITERIA MET - Group Notification - [facility] - Has Care Guidelines - PDMP CARE PROVIDERS CORNELIUS FARFAN Physician Sr. Operations Manager 05/30/2018-Current PHONE: [phone] Obed Sotomayor MD Primary Care Current PHONE: [phone] [place] has no Care Guidelines for this patient. Care History Medical/Surgical 11/21/2018 [facility] - PATIENT TO ESTABLISH CARE WITH DR HOLLAND ON 12/26/2018. - CURRENT PCP IS AFINA FARFAN. E.Anamika VISIT COUNT (12 MO.) 4 [facility] TOTAL 4 NOTE: Visits indicate total known visits. ED/UCC VISIT TRACKING (12 MO.) 02/21/2019 11:24 [facility] [place] TYPE: Emergency COMPLAINT: - ABD PAIN 11/20/2018 22:34 [facility] [place] TYPE: Emergency COMPLAINT: - EXTREMITY PAIN/INJURY DIAGNOSES: - Allergy status to penicillin - Heart failure, unspecified - Allergy status to other drugs, medicaments and biological substances status - Pain in right ankle and joints of right foot - Nicotine dependence, unspecified, uncomplicated - Hypertensive heart disease with heart failure - Other termite exterminator (current) drug therapy - Other trade areas as the place of occurrence of the external cause - Fall on same level due to ice and snow, initial encounter - Displaced trimalleolar fracture of right lower leg, initial encounter for closed fracture 05/29/2018 23:38 [facility] [place] TYPE: Emergency COMPLAINT: - L FOOT PAIN,INJURY DIAGNOSES: - Unspecified injury of left foot, initial encounter - Striking against other stationary object, initial encounter - Encounter for immunization - Other care home (current) drug therapy - Puncture wound without foreign body, left foot, initial encounter - Allergy status to other drugs, medicaments and biological substances status - Nicotine dependence, unspecified, uncomplicated - Allergy status to penicillin 05/25/2018 23:39 [facility] [place] TYPE: Emergency COMPLAINT: - COUGH DIAGNOSES: - Allergy status to penicillin - Acute bronchitis, unspecified - Cough - Other termite exterminator (current) drug therapy - Heart failure, unspecified - Nicotine dependence, cigarettes, uncomplicated - Hypertensive heart disease with heart failure - Allergy status to other drugs, medicaments and biological substances status INPATIENT VISIT TRACKING (12 MO.) No inpatient visits to display in this time frame [email or web address]
[2019-02-21] MEDS ORDERED: PANTOPRAZOLE SO40 MG PO (17:00)
[2019-02-21] MEDS ORDERED: ZOFRAN4 MG SL (17:00)
[2019-02-21] MEDS ORDERED: DICYCLOMINE HCL20 MG PO (17:00)
== END 2019-02-21 17:30 | disposition home or self-care (01) ==
LOC: ED 11:24
DX: K29.70 Gastritis, unspecified, without bleeding (principal); K52.9 Noninfective gastroenteritis and colitis, unspecified; E86.0 Dehydration; I11.0 Hypertensive heart disease with heart failure; I50.9 Heart failure, unspecified; F17.200 Nicotine dependence, unspecified, uncomplicated; Z88.0 Allergy status to penicillin; Z88.8 Allergy status to other drugs, medicaments and biological substances; Z79.899 Other long term (current) drug therapy
CPT/HCPCS: 74176; 80053; 81001; 83690; 84703; 85025; 96361; 96374; 96375; 99284-25; C9113; J1885; J2405; J7030

== ENCOUNTER 2019-03-05 14:11 | Emergency (ER) | payer OTHER ==
[~2019-03-05] VITALS: Ht 152.4 cm; Wt 92.1 kg
[~2019-03-05 14:11] MED LIST changes: +DICYCLOMINE HCL20 MG PO; +PANTOPRAZOLE SO40 MG PO; +ZOFRAN4 MG SL
--- OUTSIDE RECORDS SUMMARY | 2019-03-05 14:14 | XMS ---
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 Care History Medical/Surgical 11/21/2018 [facility] - PATIENT TO ESTABLISH CARE WITH DR HOLLAND ON 12/26/2018. - CURRENT PCP IS FAINA FARFAN. [facility] VISIT COUNT (12 MO.) [address] [facility] [address] [facility] TOTAL 5 NOTE: Visits indicate total known visits. ED/UCC VISIT TRACKING (12 MO.) 03/05/2019 14:12 [facility] [place] TYPE: Emergency COMPLAINT: - ABDOMINAL PAIN/VOMITING 02/21/2019 11:24 [facility] [place] TYPE: Emergency COMPLAINT: - ABD PAIN DIAGNOSES: - Nicotine dependence, unspecified, uncomplicated - Other rn long term care (current) drug therapy - Noninfective gastroenteritis and colitis, unspecified - Dehydration - Hypertensive heart disease with heart failure - Allergy status to other drugs, medicaments and biological substances status - Heart failure, unspecified - Upper abdominal pain, unspecified - Gastritis, unspecified, without bleeding - Allergy status to penicillin 11/20/2018 22:34 [facility] [place] TYPE: Emergency COMPLAINT: - EXTREMITY PAIN/INJURY DIAGNOSES: - Allergy status to penicillin - Heart failure, unspecified - Allergy status to other drugs, medicaments and biological substances status - Pain in right ankle and joints of right foot - Nicotine dependence, unspecified, uncomplicated - Hypertensive heart disease with heart failure - Other custodial (current) drug therapy - Other trade areas [...] encounter - Encounter for immunization - Other custodial (current) drug therapy - Puncture wound without foreign body, left foot, initial encounter - Allergy status to other drugs, medicaments and biological substances status - Nicotine dependence, unspecified, uncomplicated - Allergy status to penicillin 05/25/2018 23:[address] [facility] [place] TYPE: Emergency COMPLAINT: - COUGH DIAGNOSES: - Allergy status to penicillin - Acute bronchitis, unspecified - Cough - Other custodial (current) drug therapy - Heart failure, unspecified - Nicotine dependence, cigarettes, uncomplicated - Hypertensive heart disease with heart failure - Allergy status to other drugs, medicaments and biological substances status INPATIENT VISIT TRACKING (12 MO.) No inpatient visits to display in this time frame [email or web address]
[2019-03-05] MEDS ORDERED: CHANTIX0.5 MG PO (15:05)
[2019-03-05] MEDS ORDERED: DICYCLOMINE HCL20 MG PO (15:55)
== END 2019-03-05 16:05 | disposition home or self-care (01) ==
LOC: ED 14:11
DX: K52.9 Noninfective gastroenteritis and colitis, unspecified (principal); I11.0 Hypertensive heart disease with heart failure; I50.9 Heart failure, unspecified; F17.200 Nicotine dependence, unspecified, uncomplicated; Z90.89 Acquired absence of other organs; Z88.0 Allergy status to penicillin; Z88.8 Allergy status to other drugs, medicaments and biological substances; Z79.899 Other long term (current) drug therapy
CPT/HCPCS: 99283; 99406

== ENCOUNTER → 2020-06-10 | Emergency (ER) | payer OTHER ==
[~2020-06-10] VITALS: Ht 152.4 cm; Wt 92.1 kg
[~2020-06-10] MED LIST changes: +CHANTIX0.5 MG PO; +HYDROCHLOROTHIA25 MG; +PREDNISONE20 MG PO
--- OUTSIDE RECORDS SUMMARY | ~2020-06-10 | XMS | Encounter Summary ---
Demographics + + + | Address | [address] | | | [place] [address] | + + + | Home Phone | | + + + | Preferred Language | Unknown | + + + | Marital Status | Single | + + + | Spiritism Affiliation | NON | + + + | Race | White | + + + | Ethnic Group | Not or | + + + Author + + + | Author | [facility] | + + + | Organization | [facility] | + + + | Address | [...] Team Providers + +------+ + | Care Manager Mac Name | Role | Phone | + [...] + + | 10/04/ | Emergency | [facility] Emergency | | | | 2012 | | Department [address] | | | | | | [address] | | | | | | [facility] | | | | | | [place], [place] | | | | | | [id number] | | | | | | [phone] | | | +--------+ + + + [...] on file | | + + + documented as of this encounter Miscellaneous Notes Comm Lauro - Vandana Kinsey - 10/04/2012 12:02 PM PST31 yof, 2 weeks post , 3 days ago developed thrombophlebitis, no fever, no positive blood cultures at this time, [place] [id number], Ct scan shows patchy infiltrate in upper lobe. Initially admitted for SOB on 09-28. -16 pt developed increased warmth and tenderness at the IV site. Gram stain negative. Conn ected Dr Pappas to Dr Rebollar-WILLEM. Consult only, no indication for transfer. Electronically ronald d by Vandana Kinsey at 10/04/2012 12:10 PM PSTdocumented in this encounter Plan of Treatment Not on filedocumented as of this encounter Visit Diagnoses Not on filedocumented in this encounter"
--- OUTSIDE RECORDS SUMMARY | ~2020-06-10 | XMS | Encounter Summary ---
Demographics + + + | Address | [address] | | | [place] [address] | + + + | Home Phone | | + + + | Preferred Language | Unknown | + + + | Marital Status | Single | + + + | Yarsanism Affiliation | NON | + + + | Race | White | + + + | Ethnic Group | Not or | + + + Author + + + | Author | [facility] | + + + | Organization | [facility] | + + + | Address | [...] Team Providers + +------+ + | Care Campus Monitor Name | Role | Phone | + [...] Echo | | | | | | Divercarlos, | [facility] [address] | | | | | TRANSTHORACI | Madelyn Wright, | [address] | | | | | C | [address] | [address] | | | | | ECHOCARDIOGR | [employer] [facility] | [place] | | | | | AM, ADULT | [address] | [facility] | | | | | | [facility] | | | | | | [place] [address] | [place], [place] | | | | | | Phone: | [phone] | | | | | | [phone] | Phone: | | | | | | Fax: | [phone] | | | | | | [phone] | | +--------+--------+ + + + + Reason [...] | | 2012 - | Encounter | [address] | MD Magaly [address] | | | | | [facility] [place] | [address] | | | 10/12/ | | [address] | [place], [place] | | | 2012 | | [phone] | [address] | | | | | | [phone] | | | | | | | | | | | | Meenakshi Sanders | | | | | | [address] | | | | | | [address] | | | | | | [place], [place] | | | | | | [address] | | | | | | [phone] | | | | | | | [...] by smoking, who was transferred to the [facility] MICU for acute respiratory failur e likely [...] shortness of breath. She was admitted to [facility] 09/28 and was found to have a L arm septic thrombophlebitis. 10/01, she was taken to the OR for thrombectomy and rem oval of 20cm vein. Then, 10/05, she had acute onset of hypoxic respiratory failure which requ ired intubation. She was transferred to [facility] for additional care. # Hypertensive emergency/ pre-eclampsia: Ms. Rosario initially presented to [facility] with hypoxic respiratory failure likely 2/2 flash pulmonary edema in the setting of hype rtension likely related to pre-eclampsia and compounded by underlying hypertension. She was initially treated with IV nifedipine and labetalol. M was consulted who advised that her s [...] # Septic Thrombophlebitis: During her hospitalization at [facility], the patient was fou nd to have septic thrombophlebitis and underwent thrombectomy 10/01. Here at [facility], she was se en in ICU by EGS. Retention sutures were remvoed 10/07 and surgery recommended wet to dry amando ssings. Also on transfer to, Ms. Rosario was receiving IV antibiotics: vanc+cefepime (10/01-09/17 0); flagyl+aztreonam+vanc (10/06-). However, given pt's poor access, she was transitioned t o PO therapy with cipro + clinda to finish her course. On follow-up of [facility] blood c ultures, they were no growth from 10/01 and 10/03. Pt was given teaching on dressing changes a nd proved materials on discharge. She was instructed to perform daily dressing changes. - Clindamycin 300mg Q6h, Cipro 500mg BID (stop date10/15) - F/U with [place] surgery 2 weeks # Hypoxic Respiratory Failure: [...] diuretic. # Family Planning: In conversation with MFM team, pt expressed desire for tubal ligation. [...] up with KIANA ROJO MD. Contact information: Branden Ricci [address] [place] [address] Follow up with [facility] in 2 weeks. Outstanding labs/studies: None Discharging Physician: MAGY SALEEM MD Attending Physician: Cathy documented in this [...] We discussed her dispo plan today in [facility], including proper wet-dry dressings recommended by surgery daily. I recommended that her PCP or other provider reassess the wound healing at least weekly, as wound needs can change as it heals. #.Hypertensive emergency/Preeclampsic-off BB, on max ACEI-I. 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 [place] today. .I spent > 35 minutes [...] and imaging rev iewed. Whit Morgan MD [facility] Division of General Internal Medicine & Geriatrics [facility] DEPARTMENT: [phone]- [facility] Faculty PPV Place of Service:- Inpatient Date of Service: 10/12/2012 CSN: [id number] Suggested Modifier: GC Resident Involved: Yes Suggested CPT: 17781- Subsequent, Detailed/high complex, 35 min Whit Daniel [...] today. We reviewed post precautions, plan for long term care administrator contraception (i nterval BTL), PET warning signs [...] - planning on living with "friends in [place]" #3children in foster care #Family planning-rediscuss clot risk less with progestin compared to estrogen. Alt is Miren a IUD. #polysubstance addiction #dispo-pt reports having arranged inpatient rehab intake M 10/13 [place] with plan to stay in [facility] S 10/12 in [place]. [place] Sun 10/12 am. I personally interviewed the patient, performed the rosales elements of the physical examinatio n, and agree with my team's assessment and plan as outlined in their documentation. I have n oted any additions or exceptions above. ROS otherwise negative. Meds, labs and imaging rev iewed. Whit Morgan MD [facility] Division of General Internal Medicine & Geriatrics [facility] DEPARTMENT: [id number]- [facility] Faculty PPV Place of Service:- Inpatient Date of Service: 10/11/2012 CSN: [id number] Suggested Modifier: GC Resident Involved: Yes Suggested CPT: 14586- Subsequent Exp Prob Foc/mod complex, 25 min [...] Date 10/11/12 07 - 10/12/12 0659 Shift 2611-2007 [id number] 7226-1464 24 Hour Total I N T A [...] IVDU, who was transfer red to the [facility] MICU for acute respiratory failure likely 2/2 [...] vanc+cefepime (10/01-10/05); flagyl+aztreonam+vanc (10/06-) - F/U with [facility] EGS vs [place] surgery F/U 2 weeks [...] plan. Magy Saleem Internal Medicine PGY-1 P: [phone] air, Mario Mckenzie MD - 0 10/11/2012 10:13 AM PST [facility] DEPARTMENT OF SURGERY EMERGENCY GENERAL SURGERY Division of Trauma and Critical Care Progress Note Note Date: 10/11/2012 Admission Date: 10/06/2012 KENDALL ROSARIO, [id number] Hospital Day #5 OVERNIGHT EVENTS: No events. [...] *Respiratory failure with hypoxia MARIO WHIPPLE MD [facility] [address] [place] [address] Franck Morataya MD - 10/11/2012 8:03 AM PSTI saw and examined Ms Rosario. She is [...] diffe rent from the original. OB CONSULT NOTE Date: 10/11/2012 ID: 32 y.o. on POD#17 s/p RCS @35 weeks for pre-eclampsia in [place]. cour se complicated by septic thrombophlebitis of the left cephalic vein s/p thrombectomy, follow ed by respiratory distress requiring transfer to [facility] MICU, and intubation and ventilation. Medical history [...] owed by respiratory distress requiring transfer to [facility] MICU, and intubation and ventilation . Medical [...] desires permanent contraception and si gned an [place] consent on 09/25. Discussed safe to receive depo provera despite blood clot in ar m. Will give later today. -Will discuss interval BTL, will inbasket for family planning visit. Disposition: OB team will continue to follow Present at Rounds: Attending: Loreto Resident: Zheng Cassius, Jackie Munson MD - 10/10/2012 3:09 PM PST OB CONSULT NOTE Date: 10/10/2012 ID: 32 y.o. on POD#16 s/p RCS @35 weeks for pre-eclampsia in [place]. cour se complicated by septic thrombophlebitis of the left cephalic vein s/p thrombectomy, follow ed by respiratory distress requiring transfer to [facility] MICU, and intubation and ventilation. Medical history [...] owed by respiratory distress requiring transfer to [facility] MICU, and intubation and ventilation . Medical [...] desires permanent contraception and si gned an [facility] consent on 09/25. -Patient agreeable today [...] Rounds: Attending: Eugenia Parnell Resident: Lainey Herrera Maru GAO, Magy C - 0 10/10/2012 11:02 AM PST General Internal Medicine 4 Progress Note Hospital day 4 24 Hour Events: - Added lisinopril 2.5mg daily for BP control - Diuresis with 20mg furosemide - Transitioned to PO Abx: cipro + clinda - BP control improving; last hydralazine 6pm 10/09 - Social work consult provided pt with options for rehab facilities in [facility] Current Symptoms: Pt states that she is feeling better overall. Her LE edema has improved, as has the swellin g and redness of her RUE. She is ambulating well. No respiratory complaints. The pt reports that she is interested in entering rehab in the [facility] in an effort to regain custody of [...] Date 10/10/12 07 - 10/11/12 0659 Shift 8425-5379 7842-1254 8617-6294 24 Hour Total I N T A [...] IVDU, who was transfer red to the [facility] MICU for acute respiratory failure likely 2/2 [...] plan. Magy Saleem Internal Medicine PGY-1 P: [id number] Meenakshi Camacho MD - 10/10/2012 8:54 AM PST GM [...] is a chronic methamphetamine abuser, homeless, from [place]. 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 Likely [...] - planning on living with "friends in [place]" #3children in foster care #polysubstance addiction - we need help of social work and care management. - this patient needs to be sent go to treatment in patient immediately from hospital if she has any chance. She is aware of this. I spent over 35 min of which 50 % was care coordination and counseling. [facility] DEPARTMENT: Hosp- [phone] Place of Service: - Date of Service: 10/09/2012 CSN: [id number] Modifiers:GC Resident Involved: Yes Suggested CPT: 05070 Subsequent Visit Detailed/High complexity 35 min Jeovanny [...] 32 y.o. Female who is transferred from [facility] with severe pre-eclamps ia characterized by malignant [...] extremities. Edema resolving and responsive to diuretics. Precipitan t was thought to be hypertensive emergency, but [...] Attending, Dr. Sanders who agrees with the magaly borrego. Jeovanny Kunz MD Internal Medicine, PGY-3 Pager [phone] Interval Events: - No dyspnea currently. Lower [...] (or 3 results): Recent Labs Basename 10/09/12 0751 10/08/12 0247 10/07/12 0259 NA 141 141 145 K 3.9 3.8 3.7 CL 107 106 107 BICARB 25 27 30 BUN 10 8 7 CR 0.72 0.50* 0.62 CA 8.5* 7.9* 7.7* MG 1.7* 2.5 3.8* PO4 -- -- -- CBC with diff last 72 hours (or 3 results) Recent Labs Basename 10/09/12 0751 10/08/12 0247 10/07/12 0259 WBC 9.0 10.8 12.0* HB 9.0* 8.5* [...] is a chronic methamphetamine abuser, homeless, from [place]. #.Preeclampsi is improved BP control. #Hypoxic Respiratory [...] 50 % was care coordination and counseling. [facility] DEPARTMENT: Hosp- [phone] Place of Service: - Date of Service: 10/09/2012 CSN: [id number] Modifiers:GC Resident Involved: Yes Suggested CPT: 85009 Subsequent Visit Detailed/High complexity 35 min Jacquelyn Moses MD - 8:06 AM PST [facility] DEPARTMENT OF SURGERY EMERGENCY GENERAL SURGERY Division of Trauma and Critical Care Progress Note Note Date: 10/09/2012 Admission Date: 10/06/2012 KENDALL ROSARIO, [id number] Hospital Day #3 INTERVAL EVENTS: No acute [...] CULTURES: None pending LABS: Recent Labs Basename 10/08/1292010/08/1224610/07/1225810/06/12 1538 NA -- 141 145 141 K [...] -- -- -- 1 Recent Labs Basename 10/08/12 0921 10/06/12 1538 AST 33 35 ALT 24 44 [...] and p ramón. JACQUELYN RANDOLPH MD Pager [phone] [facility] [address] [phone] aDavon mayfield MD - 2012 6:12 AM PST CONSULT NOTE Date of service: 10/09/2012 ID: 32 y.o. on POD#15 s/p Repeat Section @35 weeks for Pre-eclampsia in [facility]. course complicated by respiratory distress and septic thrombophlebitis. Patient was transferred from [place] to the [facility] MICU for acute respiratory failure requi ring [...] on magnesium sulfate prior to transfer to [place]. Interval Hx: Patient denies SOB/CP. She denies [...] Recent Labs Basename 10/08/12 0247 10/07/12 0259 10/06/12201810/06/12 1538 WBC 10.8 12.0* 12.9* -- HB [...] 10/06/12 X-RAY PORTABLE CHEST 1 VIEW: STUDY: HI CHEST 1 VIEW 10/06/12 15:25:00 INDICATION: Hypoxic respiratory failure COMPARISON: Outside CT and radiograph today FINDINGS: There is an ET tube approximately 2-cm from the Luke. There is an NG tube with side port at junction better described on same-day radiograph. There [...] y.o. female admitted as a transfer from [place] for acute respi ratory distress in the [...] and nicardipine drip. Xray upon admission to [facility] shows pulmonary edema an d possible upper [...] kentrell inhibitor, tctz or diuretic now. Desires detention contraception - prior to discharge either btl or iud consideration. The majority of time for this visit, greater than 50%, was spent in counseling and/or coor dination of care secondary to bp management. The total physician floor time I spent reviewin g the chart and seeing the patient was 25 minutes. minutes. [facility] DEPARTMENT: [id number]- [facility] PERINATOLOGY PPV Place of Service: - Date of Service: 10/09/2012 CSN: [id number] Suggested CPT: 29244 - Subsequent, Exp Prob Foc/Mod Complex 25 min Suggested Procedure CPT: Suggested Diagnosis: Carmen Costa MD - 10/08/2012 10:22 PM PST R4 MANAGER CUSTOMS Consult Note Date: 10/08/2012 Per chart review, [...] will see patient in the am Carmen Ha MD MANAGER CUSTOMS PGY-4 Magy Mahoney MD - 10/08/2012 2:57 PM PST General Internal Medicine 4 Transfer Accept Note Brief Hospital Course: Ms. Rosario is a 32yo woman with a PMH significant for pre-eclampsia in 3 pregnancies, active methamphetamine use by smoking, who was transferred from [facility] for managem ent of hypoxic respiratory failure. The pt was 2 weeks post- s/p delivered e candido for pre-eclampsia. Her initial hospital course was complicated by hypertension, hyperre flexia, and proteinuria (4+). She was discharged in stable condition and then presented back to the hospital 12 hours later with acute onset of shortness of breath. She was admitted to [facility] 09/28 and was found to have a L arm septic thrombophlebitis. 10/01, she was taken to the OR for thrombectomy and removal of 20cm vein. Then, 10/05, she had acute onset of hyp oxic respiratory failure which required intubation. She was transferred to [facility] for addition al care. At [facility], MFM was consulted and stated that the [...] 3 results): Recent Labs Basename 10/08/12 0247 10/07/12 0259 10/06/12 1538 NA 141 145 141 K 3.8 3.7 4.1 CL 106 107 107 BICARB 27 30 29 BUN 8 7 8 CR 0.50* 0.62 0.53* GLU 101* 128* 88 CA 7.9* 7.7* 7.9* MG 2.5 3.8* 1.8 PO4 -- -- 3.8 CBC with diff last 72 hours (or 3 results) Recent Labs Basename 10/08/12 0247 10/07/12 0259 10/06/12201810/06/12 1538 WBC 10.8 12.0* 12.9* -- HB [...] IVDU, who was transfer red to the [facility] MICU for acute respiratory failure likely 2/2 [...] drug use (17d sober from meth), tho ugh denies IVDU. To facilitate d/c, it may [...] plan. Magy Saleem Internal Medicine PGY-1 P: [phone] signed by Magy Saleem MD at 10/08/2012 7:56 PM PSTJeovanny Kunz MD - 10/08/2012 2:36 PM PST Brief Resident Transfer Accept Note Kendall Rosario is a 32 y.o. Female with a history of active Methamphetamine use, prior pregnanci es complicated with pre-eclampsia, poor pre-mone nutrition, who is transferred from [facility] in [place] for management of Hypoxic Respiratory failure and [...] She was then transferred here to the [facility] ICU for management of her res piratory [...] 32 y.o. Female who is transferred from [facility] with severe pre-eclamps ia characterized by malignant [...] Kunz MD Internal Medicine Resident, PGY-3 Pager [phone] Vero Hunter MD - 10/08/2012 8:00 AM [...] for sepsis/thrombophle bitis. No new culture data ([facility] for outside hospital). Needs a 14d course [...] with the plan as outlined in the bogdan lee note. Critical Care Time = 35 min [...] 3 results): Recent Labs Basename 10/08/12 0247 10/07/12 0259 10/06/12 1538 NA 141 145 141 K 3.8 3.7 4.1 CL 106 107 107 BICARB 27 30 29 BUN 8 7 8 CR 0.50* 0.62 0.53* GLU 101* 128* 88 CA 7.9* 7.7* 7.9* MG 2.5 3.8* 1.8 PO4 -- -- 3.8 CBC with diff last 72 hours (or 3 results) Recent Labs Basename 10/08/12 0247 10/07/12 0259 10/06/12201810/06/12 1538 WBC 10.8 12.0* 12.9* -- HB [...] 52* PO2 84 51* HCO3 29* 29* JUDCO6UBU 30* 31* Q1WOMOVX 96.9 83.7* [id number] -- -- FIO2 .4 .5 Lab Results [...] terminates beneath the diaphragm and outside the [id number]. A mild groundglass opacification the lungs wit [...] signed / Willian Mcghee 10/07/2012 14:21 PM [facility] DEPARTMENT: MICU, [facility]- [id number] Place of Service: - Date of Service: 10/08/2012 CSN: [id number] Modifiers:GC Resident Involved: yes Suggested CPT: 37580 Critical Care, Initial 30-74 minutes Cristi Gao, [facility] - 10/08/2012 7:19 AM PST . MICU PROGRESS NOTE AND TRANSFER SUMMARY Author: MADELYN WATSON MD Attending Physician: Vero Galarza MD PCP: Kiana Rojo MD HOSPITAL COURSE: Ms. Rosario is a 32 yo female with history of IVDU, bipolar II and 2 weeks post s/p C- section for pre-eclampsia transferred from [facility] in [place] for management of hypoxi c respiratory failure requiring intubation on 10/06. Ms. Rosario was admitted to [place] ([facility]) on 09/28 for respiratory distress. She was [...] night. MFM was consulted and agreed that warren oscar pre-eclampsia was the most likely diagnosis, even [...] 2 g, 2 g, Intravenous, Q6H, Madelyn Watosn MD, 2 g at 0538 bisacodyl (aka [...] % Intake/Output Summary (Last 24 hours) at 10/08/12718 Last data filed at 10/08/12 0500 Gross [...] 3 results): Recent Labs Basename 10/08/12 0247 10/07/12 0259 10/06/12 1538 NA 141 145 141 K 3.8 3.7 4.1 CL 106 107 107 BICARB 27 30 29 BUN 8 7 8 CR 0.50* 0.62 0.53* CA 7.9* 7.7* 7.9* MG 2.5 3.8* 1.8 PO4 -- -- 3.8 CBC with diff last 72 hours (or 3 results) Recent Labs Basename 10/08/12 0247 10/07/12 0259 10/06/12201810/06/12 1538 WBC 10.8 12.0* 12.9* -- HB [...] 52* PO2 84 51* HCO3 29* 29* NVVJQ4GFY 30* 31* U8AVJHEX 96.9 83.7* G6PANOPQN -- -- FIO2 .4 .5 CULTURE DATA: [...] . She reports seeing "Artur Garcia" in [place], her MHP though was not able to [...] MADELYN WATSON MD Internal Medicine PGY1 Pager [phone] Vero Cuello MD - 10/08/2012 2:27 AM PSTI saw the patient on rounds and agree with the assesment and plan as outlined in this note and participated in the planning of the patient's care. Vero Mederos MD [phone] air, Mario Mckenzie MD - 10/08/2012 2:27 AM PST EMERGENCY [...] Q6H, Madelyn Watson MD, 2 g at 233 bisacodyl (aka DULCOLAX) suppository 10 mg, 10 [...] Intake/Output Summary (Last 24 hours) at 10/08/12 0227 Last data filed at 10/08/12 0130 Gross [...] or fail: Pass SBT, ready for extubation (10/07/1239) Lab Results Component Value Date PH 7.39 10/06/2012 PCO2 49* 10/06/2012 PO2 84 10/06/2012 HCO3 29* 10/06/2012 FIO2 .4 10/06/2012 Lab Results Component Value Date ABGEXCESS 3.5 10/06/2012 PHYSICAL EXAM: Left upper extremity: longitudinal upper arm wound with packing in place, clean based, no d rainage or erythema LABS: Chemistries Recent Labs Basename 10/07/1225810/06/12 1538 NA 145 [...] CBC with diff Recent Labs Basename 10/07/12 02510/06/12 2019 10/06/12 [...] MARIO WHIPPLE MD Surgery Resident, R3 Diagnoses: [id number] Respiratory failure with hypoxia Nickie, MD Brandon - 10/08/2012 2:14 AM PST MICU Attending [...] who is critically ill. Brandon Hurtado MD Search Engine Opt[employer] Consultantlegal consultant Pulmonary and Critical Care Medicine [facility]- [id number] Place of Service: Date of Service: 10/08/2012 CSN: [id number] Modifiers:GC Resident Involved: yes Suggested CPT: 29274 Critical Care, Initial 30-74 minutes an Melvin - 09/17 11:49 AM PSTTransthoracic echocardiogram completed. Final report to follow. Gomez camargo signed by Yan Melvin at 10/07/2012 11:49 AM Matthew Siddiqi MD - 10/07/2012 8:49 AM PSTI have personally interviewed and examined Ms. Rosario with Drs. Rodriguez, Kiesha fairchild and Javier and read the note and [...] of which was for routine post care. [facility] DEPARTMENT: [id number]- [facility] PERINATOLOGY PPV Place of Service:[id number] - Date of Service: 10/07/2012 CSN: [id number] Suggested CPT: 74129 - Subsequent, Detailed/High complex 35 min Suggested Diagnosis: respiratory failure MATTHEW GLASGOW MD [facility] [id number] [address] Zuri Edmond MD - 10/07/2012 8:49 AM PSTFormatting of this note might be different from the origi nal. CONSULT NOTE Date of service: 10/07/2012 ID: 32 y.o. on POD#13 s/p Repeat Section @35 weeks for Pre-eclampsia in [facility]. course complicated by respiratory distress and septic thrombophlebitis. Patient was transferred from [place] to the [facility] MICU for acute respiratory failure requi ring [...] on magnesium sulfate prior to transfer to [place]. Interval Hx: This morning patient is doing [...] only went home from the hospital in [place] for 12 hours before she returned for [...] EOSPERC -- -- 1 Recent Labs Basename 10/07/12 0259 10/06/12 1538 NA 145 141 K 3.7 4.1 CL 107 107 BICARB 30 29 BUN 7 8 CR 0.62 0.53* GLU 128* 88 CA 7.7* 7.9* AST -- 35 ALT -- 44 AP -- 228* TBILI -- 0.7 TP -- 6.2 ALB -- 2.3* Recent Labs Basename 10/07/12 02510/06/12201810/06/12 1831 10/06/12 1538 WBC 12.0* 12.9* -- 12.5* HB 9.0* 8.8* -- 9.5* HCT 27.4* 27.0* -- 27.6* PLT 465* 454* -- 444* AST -- -- -- 35 URICACID -- -- 4.2 -- CR 0.62 -- -- 0.53* Imaging 10/06/12 X-RAY PORTABLE CHEST 1 VIEW: STUDY: HI CHEST 1 VIEW 10/06/12 15:25:00 INDICATION: Hypoxic [...] y.o. female admitted as a transfer from [place] for acute respi ratory distress in the context of likely pre eclampsia at 2 weeks s/p de lopez. Per chart review, her course was complicated by sepsis s/p septic thrombo pheblitis of L cephalic vein s/p excision of infected vein 20-30cm. During that hospitalizat ion, the patient developed hypoxemia and HTN. She required intubation and treatment of her H TN with labetolol and nicardipine drip. Xray upon admission to [facility] shows pulmonary edema an d possible upper [...] Intake/Output Summary (Last 24 hours) at 10/07/12 08 Last data filed at 10/07/12 0800 Gross [...] Watson MD 2 g at 0 10/07/12 0631 bisacodyl (aka DULCOLAX) suppository 10 mg 10 [...] 52* PO2 84 51* HCO3 29* 29* FCDQO7SOC 30* 31* N5NBGUBP 96.9 83.7* G4UAFKPZM -- -- FIO2 .4 .5 Lab Results Component Value Date INRPT 1.07 10/06/2012 Lab Results Component Value Date LACTICACID 0.8 10/06/2012 No Data Recorded Last Last CBG's POC Lab Results Component Value Date GLU 128* 10/07/2012 GLU 88 10/06/2012 CXR * 10/06/2012 Value: STUDY: HI CHEST 1 VIEW 10/06/12 15:25:00 INDICATION: Hypoxic [...] signed / Ezio Bautista 10/06/2012 17:21 PM [facility]MENT: [facility]- [id number] Place of Service: Date of Service: 10/07/2012 CSN: [id number] Modifiers:GC Resident Involved: yes Suggested CPT: 53215 Critical Care, Initial 30-74 minutes 9 Cristi Gao, [facility] - 10/07/2012 6:05 AM PST . MICU PROGRESS NOTE Author: MADELYN WATSON MD Attending Physician: Vero Galarza MD PCP: Kiana Rojo MD ID: Ms. Rosario is a 32 yo female with history of IVDU, bipolar II and 2 weeks post s/p C- section for pre-eclampsia transferred for ventilatory management from [place] [facility] in [facility] on. 24hr events: -Admit to 12K -Seen [...] Aguero MD, 15 mL at 09/17 10/29 0547 esomeprazole (aka NEXIUM) IV infusion, 8 mg/hr, Intravenous, CONTINUOUS, Madelyn santizo MD, Last Rate: 10 mL/hr at 10/06/122025, 8 mg/hr at 10/06/122025 fentaNYL citrate (PF) (aka SUBLIMAZE) injection 25-100 mcg, 25-100 mcg, Intravenous, Q1H HI N, Jeovanny Aguero MD, 100 mcg at 10/07/12 0141 heparin injection 5,000 Units, 5,000 Units, Subcutaneous, Q8H, Jeovanny Aguero MD, 5,000 Units a t 10/07/12 0021 HYDROmorphone (aka DILAUDID) injection 0.2-0.5 mg, 0.2-0.5 mg, Intravenous, Q2H PRN, Margot Bee MD,PhD, 0.25 mg at 10/07/12 0547 magnesium sulfate IV infusion, 1 g/hr, Intravenous, CONTINUOUS, Madelyn Watson MD, L ast Rate: 25 mL/hr at 10/07/12 0400, 1 g/hr at 10/07/12 0400 menthol-zinc oxide (aka CALAZIME) topical paste, , Topical, QID PRN, Jeovanny Aguero MD metroNIDAZOLE (aka FLAGYL) IV 500 mg, 500 mg, Intravenous, Q8H, Madelyn Watson MD, 5 00 mg at 10/07/12 0020 propofol (aka DIPRIVAN) injection, 0.5-60 mcg/kg/min (Dosing Weight), Intravenous, CONTINUO US, Madelyn Watson MD, Last Rate: 16.88 mL/hr at 10/07/12 050, 35 mcg/kg/min at 09/17 10/29 0500 senna-docusate (aka SENOKOT S) oral solution [...] Intake/Output Summary (Last 24 hours) at 10/07/12 0605 Last data filed at 10/07/12 0500 Gross [...] (or 3 results): Recent Labs Basename 10/07/12 02510/06/12 1538 NA 145 141 K 3.7 4.1 CL 107 107 BICARB 30 29 BUN 7 8 CR 0.62 0.53* CA 7.7* 7.9* MG 3.8* 1.8 PO4 -- 3.8 CBC with diff last 72 hours (or 3 results) Recent Labs Basename 10/07/12 02510/06/12201810/06/12 1538 WBC 12.0* 12.9* 12.5* HB 9.0* [...] 52* PO2 84 51* HCO3 29* 29* STYPL0KFM 30* 31* [id number] 96.9 83.7* [id number] -- -- FIO2 .4 .5 CULTURE DATA: [...] MADELYN WATSON MD Internal Medicine PGY-2 Pager [phone] Francis Kaplan MD - 10/06/2012 7:04 PM PSTI have seen and examined this patient and reviewed the note d ated 10/06/[address] Rodriguez and I agree with her assessment and plan. The majority of time for this visit, greater than 50%, was spent in counseling and/or coordination of care svetlana degroot to hypertension, respiratory distress, pulmonary edema, suspected preeclampsia. The [facility] physician floor time reviewing the chart and seeing the patient was 30 minutes. Start Mg SO4 for possible preeclampsia, seizure prophylaxis - check urine dip for protein and uric ac id. Discussed work up and options for treatment of hypertension with critical care team. [facility] DEPARTMENT: [id number]- [facility] PERINATOLOGY PPV Place of Service:[id number] - IP Date of Service: 10/06/2012 CSN: [id number] Suggested CPT: 22645 - Initial, Detailed; low complex 30 min Suggested Diagnosis: Respiratory distress, pulmonary edema, hypertension, possible preecla mpsia Elijah Wilhelm MD, [facility] Mortgage Loan Originator Division of Maternal- Medicine [facility] [place] rass, Shyanne castaneda MD - [facility]06[facility]2012 [facility] 32[facility] transferred from [place] to MICU with history of IVDU s/p [...] the notes it appears that the patient litzy y not have custody of kids and [...] PST MICU Attg. Progress Note transferred from [place] with ?septic emboli. A/P: 32F with h/o [...] Particularly with preeclampsia. Check urine protein. Awaiting M recs. I examined the patient myself. I [...] 10/06/2012 MCV 87.6 10/06/2012 RDW 16.1 10/06/2012 [facility]PARTMENT: [facility]- [id number] Place of Service: [facility] Date of Service: 10/06/2012 CSN: [id number] Modifiers:GC Resident Involved: yes Suggested CPT: 32068 Critical Care, Initial 30-74 minutes documented in this encounter H&P Notes Madelyn Watson Md - 10/06/2012 6:02 PM PSTFormatting of this note might be differen t from the original. INPATIENT MICU ADMISSION HISTORY AND PHYSICAL Author: Madelyn Watson MD Attending Physician: Vero Galarza MD PCP: Dr. Kiana Rojo HPI: Ms. Rosario is a 32 yo female with history of IVDU, bipolar II and 2 weeks post s/p C -section for pre-eclampsia transferred for ventilatory management from [place] in [facility]. Admitt history is unclear as no H+P is available though did have septic thrombophlebiti s s/p thrombectomy 10/01. Had apparently been recovering from surgery on Vanc Cefepime when o vernight 10/05 she experienced acute hypoxic respiratory failure over the course of a couple hours necessitating intubation. Transferring team concerned about congestive heart failure a nd concerned about an aspiration event. She was diuresed with Lasix though no clear outcome or improvement noted. She had severe hypertension that was being treated with a nicardipine and labetolol drip. PMH: per previous notes 1. Hypertension, gestational vs essential 2. Polysubstance abuse, Methamphetamine, tobacco 3. Anxiety disorder 4. Asthma Family History Hypertension, Leukemia, CVA Home meds: Labetolol Xopenex Nicoderm Motrin Hep Sub Q Percocet Vistaril Ambien Xanax Apresoline Zoloft Senekot Allergies: Penicillin Social Hx: Unable to verify. Reported IVDU Review of Systems: Intubated, unable to assess Physical Exam: BP 166/71 | Pulse 92 | Temp 37.2 C (99 F) | RR 19 | Ht 1.626 m (5' 4.02") | SpO2 96% Systolic (24hrs), Av mmHg, Min:125 mmHg, Max:167 mmHg Diastolic (24hrs), Av mmHg, Min:71 mmHg, Max:87 mmHg Pulse Av Min: 79 Max: 92 Temp Av.1 C (98.8 F) Min: 37 C (98.6 F) Max: 37.2 C (99 F) Resp Av.5 Min: 18 Max: 19 SpO2 Av.3 % Min: 96 % Max: 98 % Lines: PIV x3 NGT ETT Reddy General Appearance: intubated, sedated HEENT:sclera anicteric, +brown NGT output Respiratory: mechanical, clear Cardiovascular: RRR, no m/r/g Gastrointestinal: soft, nt, nd, bs +, obese, scar looks c/d/i Extremitites: wwp, no edema, no clubbing, distal pulses intact Skin: no rash Data: Chemistries: Last 72 Hours (or 3 results): Recent Labs Basename 10/06/12 1538 NA 141 K 4.1 CL 107 BICARB 29 BUN 8 CR 0.53* CA 7.9* MG 1.8 PO4 3.8 CBC with diff last 72 hours (or 3 results) Recent Labs Basename 10/06/12 1538 WBC 12.5* HB 9.5* HCT 27.6* PLT 444* NEUTROPERC 86* BANDPCT -- LYMPHPERC 8* MONOPERC 4 BASOPERC 0 EOSPERC 1 Liver Tests: Last 72 hours (or 3 results) Recent Labs Basename 10/06/12 1538 AST 35 ALT 44 TBILI 0.7 AP 228* ALB 2.3* TP 6.2 Lab Results Lab Test Name Results Date/Time URINECOLOR Yellow 10/06/12 URINELE Trace 10/06/12 URINENITRITE Negative 10/06/12 URINEUROBILI <2.0 10/06/12 URINEPROTEIN Negative 10/06/12 URINEPH 5.0 10/06/12 URINEBLOOD Negative 10/06/12 URINEKETONES Negative 10/06/12 URINEBILI Negative 10/06/12 URINEGLUCOSE Negative 10/06/12 Lab Results Lab Test Name Results Date/Time URINEAMPPHOS None 10/06/12 URINEBACTERI None 10/06/12 URINECAOX None 10/06/12 URINECAST 0 10/06/12 URINEGRANCAS 0 10/06/12 URINEHYALINE 0 10/06/12 URINEMUCOUS Few 10/06/12 URINEEPITH Few 10/06/12 URINEREDCELL 17 10/06/12 URINESQEPI None 10/06/12 URINEPO4 None 10/06/12 URINEWBC 6 10/06/12 URINEYEAST None 10/06/12 Arterial Blood Gas result Lab Results Component Value Date PH 7.37 10/06/2012 PCO2 52* 10/06/2012 PO2 51* 10/06/2012 HCO3 29* 10/06/2012 FIO2 .5 10/06/2012 CXR: IMPRESSION: Bilateral pulmonary vascular indistinctness consistent with pulmonary edema and bilateral pleural effusions. This is improved in comparison to recent radiographs. Patchy groundglass most pronounced in the upper lobes may represent inflammatory or infectious etiology. Assessment: Ms. Rosario is a 32 yo female with history IVDU and recent pre-eclampsia s/p presen gayathri in transfer with hypoxic respiratory failure, suspect pre-eclampsia vs pulmonary edema Plan by system: Neuro: #Sedation: Propofol and Fentanyl. -Daily Sedation Holiday CV: Tachycardia and Hypertension: DDx includes pre-eclampsia, sepsis, withdrawal (opioids? Meth ?), cardiomyopathy (post-?). TTE from 10/03 showed normal EF size and function though she experienced an acute change last night. Do strongly suspect pre-eclampsia. Don't get the sense that she is septic. Withdrawals may be contributing as she had some improvement in vi tals with Fentanyl -Magnesium gtt, follow neuro exam. -MFM consult, appreciate recs -Repeat TTE -Consider diuresis -Lactic acid Pulm: #Hypoxic Respiratory failure: Ddx includes Cardiogenic and non-cardiogenic pulmonary edema vs pnuemonia vs PE vs amniotic fluid emboli. Chest xray and exam consistent with volume over load but per report outside TTE showed EF of 60%. Do not feel she is a good candidate to diu rese at this time. -Avoid further fluid, goal even to -500ml -Continue ventilatory support with low tidal volumes 6cc/kg -Daily SBT GI: #UGIB: based on output from NGT. Will empirically treat and monitor H+H, Will get GI consul t if rapid drop otherwise will put off for now -CBC Q6H -PPI ggt -consider GI consult Renal: No acute issues Hem: #anemia: normocytic. Possible source includes suspected UGIB #leukocytosis: ID: #Septic thrombophlebitis: Treating as above. Source looks to be controlled. Transitioned to Vanc/Aztreonam/Flagyl. At admission, before allergies were verified, she did receive one do se of Zosyn, which she is listed as allergic to penicillins. Pt was examined and there was n o obvious reaction noted. No treatment of allergic reaction needed. -Of note, was scheduled for OR closure of wound today. Will contact Gen Surg about closure once stable. Fluid/Electrolytes/Nutrition: #Volume overload: as above Endo: #No acute issues Skin: No acute issues F - NPO A - fentanyl S - propofol T - Heparin SQ H - HOB 30 deg U - PPI G - N/a Dispo: Continue ICU level care CODE: Full Pt will be staffed with Dr. Galarza, attending, within 24 hours. Madelyn Watson MD Internal Medicine Resident, PGY-2 Pager [phone] documented in this encounter Procedure Notes Other, Faculty - 10/07/2012 2:02 PM PSTAssociated Order(s): TRANSTHORACIC ECHOCARDIOGRAM, ADULT documented in this enc ounter Consult Notes Pinky Mejia PharmD - 10/09/2012 11:35 AM PST PHARMACY SERVICES: ADMISSION MEDICATION RECONCILIATION ADDENDUM Prior to Admission Medications Medication albuterol 90 mcg/actuation Inhalation HFA Aerosol Inhaler Inhale 2 Puffs every six hours as needed. For shortness of breath, asthma attack or cough ibuprofen 800 mg Oral tablet Take 800 mg by mouth every six hours as needed. labetalol 200 mg Oral tablet Take 200 mg by mouth two times daily. oxyCODONE-acetaminophen (PERCOCET) 5-325 mg Oral tablet Take 1-2 Tabs by mouth every two days. Not to exceed 12 tablets per any 24 hour period. I ndications: Pain The updated prior to admissions medication list has been acknowledged and I have found it t o be complete and accurate. This DENITRATOR OPERATOR list has been updated to reflect any discrepancies found during the med rec interv iew. A total of 10 minutes were spent reviewing the prior to admission medication list note writ ten by pharmacy innovation assistantAdriana For any further questions regarding this information contact pharmacy, pager #[phone] Thank you, Pinky Mejia Pharm.[place]. [place] [phone] Adriana Courtney - 10/09/2012 11:35 AM PST Pharmacy Services: Admission Medication Reconciliation Medication Source/Reliability: Choose - Reliable/Fair/Poor Choose - Family member/spouse/friend/patient Pharmacy/SNF including location and phone number [facility] in [place], [place]. I reviewed patient's home medication list and their pharmacy medication print out and found it to be accurate with these following exceptions: Discontinued Prior to Admission: N/A Medication Omissions: Please add the followin. Albuterol inhaler Inhale 2 puffs as needed for shortness of breath, asthma attack or cough. Inhale 2 puffs 15 minutes later if symptoms persist. Note: directions per patient. She reports not using this often and still has [facility] The original prescription was written for 2 puffs by mouth 4 times daily as needed. 2. Percocet 5-325 mg Take 1-2 tablets by mouth every 48 hours as needed. Note: patient reports this does not work for her and so she may have taken more than prescr ibed per day. She reports flushing these down the toilet to avoid taking too much. 3. Labetalol 200 mg Take one tablet by mouth three times a day. Note: per pharmacy records and patient. 4. Motrin 800 mg Take 1 tablet by mouth every 6 hours. Note: per pharmacy records. Changes to Dose/Sig/Route of Medications: N/A OTC/Supplement/Herbal: 1. Acetaminophen extra strength 500 mg Take as needed for pain. 2. Ibuprofen 200 mg Take as needed for pain. Additional Information: 1. Patient and her SO both use methamphetamine. She is 2 weeks and is in good sp irits. Her SO in the room makes inappropriate comments throughout the interview that were di stracting and inappropriate. 2. Patient was in a good mood but did not recall particular medications until prompted with medication names. Also, although she stated she flushed Percocet down the toilet, I'm unsur e how reliable that is since she mentioned other pain medications not working around the [facility] e time. 3. For OTC pain, patient states that ibuprofen works better for her than APAP. 4. Patient says she is no longer on Nicoderm because she has stopped smoking. 5. Patient initially reported only taking albuterol prior to admission to [facility] but once pro mpted with names of Medications, she recalled taking 3 medications. 6. Patient reports getting discharged with iron pills but patient does not take it. Allergies: Confirmed. Allergies Allergen Reactions Penicillins Swelling Kendall Rosario is a 32 year old female admitted to for respiratory failure and sepsis. The chey ross s most recent medication information was obtained from patient and pharmacy records. Pharmacy Preferences: No preferred pharmacy on file. Updated: [facility] in [place], [place]. The above changes will be reviewed with the medication reconciliation pharmacist. The stephany coronel s prior to admission medication list will be updated accordingly. A total of 20 minutes were spent on medication reconciliation. Current prescription medicat ions, over the counter products, supplements and herbals use and allergies were validated. A ll questions concerning medications were addressed. For any further questions regarding this information contact the Medication Reconciliation Pharmacist, pager #[phone] Thank you, Adriana Ashton Student pager ID number [phone] PharmD candidate year 2012 Obed Aviles Pha rmD - 10/08/2012 4:19 PM PST Pharmacy Services: Vancomycin Monitoring Note Assessment/Plan: - Vancomycin trough level was drawn at 0921 on 10/08/2012. Level was drawn appropriately, ~8 hours after the last dose. Level is within the therapeutic range for septic thrombophlebiti s (goal range=15-20 mg/L) at 18.1 mg/L. - Recommend continuing with current regimen of 1250 mg IV every 8 hours. - Continue to follow serum creatinine and urine output daily. Recommend checking another tr ough level in 5-7 days or sooner if renal function declines significantly. Subjective/Objective: Kendall Rosario is a 32 year old female with PMHx of IVDU, bipolar II, anxiety, asthma, and 2 wee ks post s/p for pre-eclampsia who is transferred from [facility]SH for pre-eclampsia and septic thrombophlebitis Allergies: Penicillins Actual body weight: none this admission, will send RN communication to get one Labs: CREATININE PLASMA (LAB) (mg/dL) Date Value 10/08/2012 0.50* 10/07/2012 0.62 10/06/2012 0.53* WHITE CELL COUNT (K/cu mm) Date Value 10/08/2012 10.8 10/07/2012 12.0* 10/06/2012 12.9* Pertinent cultures/sensitivities: No culture data at OSH or [facility] Current antimicrobials: -Aztreonam IV 2 g every 6 hours -Metronidazole IV 500 mg every 8 hours -Vancomycin IV 1250 mg every 8 hours Vancomycin information: Indication: septic thrombophlebitis Start date: 10/01/2012 at OSH Current vancomycin regimen: 1250 mg every 8 hours (regimen started 10/04/2012) Goal trough level: 15-20 mg/L Assessment/Plan: Added to top of note - Pharmacy will continue to follow. Please page clinical pharmacist (#[phone]) or call [facility] pharmacy ([phone]) with questions. Thank you for this consult, Obed Grider PharmD, [facility] Clinical Pharmacist [facility] [place] Department of Pharmacy, CR [phone] [facility] [place] [address] Pager ID: [phone] Oumar Granados M D - 10/07/2012 8:42 AM PSTATTENDING ADDENDUM I saw and examined Kendall Rosario with the residents on 10/07 and agree with the assessment and p ramón as outlined in this note and participated in the planning of care. Oumar Maya MD FACS newspaper subscription solicitor Division of Trauma, Critical Care, and Acute Care Surgery [phone] Nicole Sheppard MD - 09/17 8:42 AM PST EGS SURGERY CONSULTATION: Consultation Date: 10/07/12 Consulting Attending: Oumar Maya MD Requesting Physician: Vero Galarza MD REASON FOR CONSULT: Lt arm open wound from I&D of septic phlebitis, Lt cephalic vein. HPI: 32yo F w h/o IVDU, bipolar, 2wks post C section for preeclampsia, transferred for ve ntilatory management from [facility]. The circumstances of the transfer are a little unclear - per the pt she was admitted for the C section 09/22/12 and was sent home abo ut 4-5days after, but had difficulty breathing and her mother called 911 - she was readmitte d then. During admission the EMT team had placed a Lt arm IV, which developed thrombophlebit is during her hospital stay and underwent excision and debridement 10/01/12. Retention elasti c loops were placed at the time and the skin edges were left open. She developed hypoxemia w ith significant HTN 10/05/12 and required intubation, and thereafter was transferred. Per [facility] records it appears there was concern for CHF (poss cardiomyopathy?) and pt was diuresed, extubated this AM able to relate part of the Hx to me. She was on vanc/cefepime in [facility] (there was concern for pneumonia as well?) has been kept on Abx here, currentl y on flagyl, vanc, aztreonam d/t PCN allergy. She has cultures from OSH pending, MICU team harley veloz. She denies pain in the Lt arm, just sensitive. Notably she is still significantly hypertensive, requiring labetalol/nicardipine gtts. MEDICATIONS: Current facility-administered medications:aztreonam (aka AZACTAM) IV 2 [...] MD, 1. 25 g at 10/07/12 0213 PAST MEDICAL HISTORY: Past Medical History Diagnosis Date Anxiety Asthma Hypertension Substance abuse PAST SURGICAL HISTORY: Past Surgical History Procedure Date section Thrombectomy SOCIAL HISTORY: History Substance Use Topics Smoking status: Not on file Smokeless tobacco: Not on file Alcohol Use: Not on file FAMILY HISTORY: noncontributory ALLERGIES: Allergies Allergen Reactions Penicillins Swelling ROS: See HPI PHYSICAL EXAM: Ht 162.6 cm (5' 4.02")( < 3 %ile), BP 181/93, Pulse 76, Temperature 36.8 C (98.2 F), RR 9, SpO2 98%. General: Alert and oriented, comfortable, NAD HEENT: normocephalic, NG in place bilious fluid Respiratory: Voice hoarse comfortable with good sats on RA Cardiovascular: RRR, bounding pulses Abdomen: Soft, distended, NTTP, C section incision in place c/d/i Genitourinary: deferred Wound: Lt upper arm with 20cm incision in place, edges are c/d/i, lauren with elastic rete ntion loops in place, some debri noted in wound bed but fairly well approximated Extremities: Warm and well perfused, LABS: Chemistries Recent Labs Basename 10/07/12 0259 10/06/12 1538 NA 145 141 K 3.7 4.1 CL 107 107 BICARB 30 29 BUN 7 8 CR 0.62 0.53* CA 7.7* 7.9* MG 3.8* 1.8 PO4 -- 3.8 AST -- 35 ALT -- 44 AP -- 228* TBILI -- 0.7 ALB -- 2.3* CBC with diff Recent Labs Basename 10/07/12 02510/06/12201810/06/12 1538 WBC 12.0* 12.9* 12.5* HB 9.0* 8.8* 9.5* HCT 27.4* 27.0* 27.6* PLT 465* 454* 444* NEUTROPERC -- -- 86* BANDPCT -- -- -- LYMPHPERC -- -- 8* MONOPERC -- -- 4 BASOPERC -- -- 0 EOSPERC -- -- 1 Coag Lab Results Component Value Date INRPT 1.07 10/06/2012 CBG's Recent Labs Basename 10/07/12 02510/06/12 1538 GLU 128* 88 IMAGING: - ASSESSMENT: Kendall Rosario is a 32 y.o. female who we are seeing for Lt arm wound after septic phlebitis and resection of Lt cephalic vein. The wound is 4-5days old, has been left open although w rete ntion loops to prevent opening up and skin edges are about 2-3mm apart with loops in place. Removing the loops and evaluating wound would be needed, potentially closure possible but gi tano duration of wound left open closure may not be ideal, predisposing to infection. We took the loops and lauren out, wet to dry dressing placed. RECOMMENDATIONS: 1. Wet to dry BID to Lt arm wound 2. We will follow along The above findings and plan were discussed with Mery Valencia and Francesco, who agree. Nicole Christian MD General surgery resident Pager:[phone] Elijah Kaplan M D - 10/06/2012 7:19 PM APOLINAR Wilhelm MD, [facility] Mortgage Loan Originator Division of Maternal- Medicine [facility] Carmen Costa MD - 10/06/2012 7:19 PM PST Maternal Medicine Obstetrics Consultation Note Admission Date/Time 10/06/2012 2:41 PM Consulting Faculty: Vero Galarza MD [facility] Faculty: Eugenia (Fellow), Choco (Attending) Outpatient Provider: Kiana Rojo MD History of Present Illness Kendall Rosario is a 32 y.o. (?) transferred from [place] to the [facility] MICU for acute respi ratory failure requiring intubation and ventilation. She is approximately 2 weeks s/p ash leonidas section with a complicated by pre eclampsia. Her post course was appar ently complicated by septic thrombophlebitis of the left cephalic vein s/p thrombectomy 10/01. Per chart review, patient is otherwise complicated by a hx of IVDU and bipolar disorde r. Unclear history as no previous records available for review at this time. Per MICU team re port, patient was found to have hypertension during recent admission and there was concern f or ongoing pre eclampsia. She was started on magnesium sulfate prior to transfer to [facility]. OB History: per chart review Gynecologic History Intubated, unable to assess. No prior records available for review. Past Medical History Past Medical History Diagnosis Date Anxiety Asthma Hypertension Substance abuse Past Surgical History Past Surgical History Procedure Date section Thrombectomy Family History Intubated, unable to assess. No prior records available for review. Medications Scheduled Medications Medication Dose Route Frequency Last Rate aztreonam (aka AZACTAM) IV 2 g 2 g Intravenous Q6H 2 g (10/07/12 0631) bumetanide (aka BUMEX) injection 0.5 mg 0.5 mg Intravenous ONCE heparin injection 5,000 Units 5,000 Units Subcutaneous Q8H metroNIDAZOLE (aka FLAGYL) IV 500 mg 500 mg Intravenous Q8H 500 mg (10/07/12 0020) senna-docusate (aka SENOKOT S) oral solution 8.8 mg-50 mg Feeding Tube BID vancomycin (aka VANCOCIN) IV 1.25 g 1.25 g Intravenous Q8H 1.25 g (10/07/12 0213) PRN Medications Medication Dose Route Frequency Last Rate bisacodyl (aka DULCOLAX) suppository 10 mg 10 mg Rectal BID PRN HYDROmorphone (aka DILAUDID) injection 1 mg 1 mg Intravenous Q2H PRN menthol-zinc oxide (aka CALAZIME) topical paste Topical QID PRN Allergies Kendall is allergic to penicillins. Social History Intubated, unable to assess. No prior records available for review. Per MICU team, hx of polysubstance abuse. Review of Systems Intubated, unable to assess. Physical Exam BP 181/93 | Pulse 76 | Temp 36.8 C (98.2 F) | RR 9 | Ht 1.626 m (5' 4.02") | SpO2 98% General: Intubated female, sedated, awakes to stimulus HEENT: Intubated, NG tube draining rust colored fluid. Heart: Regular rate. No murmur, gallops, rubs. Lungs: Course breath sounds. Abdomen: Soft. Obese. Non-tender. section scar is healing well without erythema e xudate. Musculoskeletal: Normal. Extremities: 2+ edema in LE [...] 6.2 ALB -- 2.3* Recent Labs Basename 10/07/12 0259 10/06/12201810/06/12 1831 10/06/12 1538 WBC 12.0* 12.9* -- 12.5* HB 9.0* 8.8* -- 9.5* HCT 27.4* 27.0* -- 27.6* PLT 465* 454* -- 444* AST -- -- -- 35 URICACID -- -- 4.2 -- CR 0.62 -- -- 0.53* Imaging 10/06/12 X-RAY PORTABLE CHEST 1 VIEW: STUDY: HI CHEST 1 VIEW 10/06/12 15:25:00 INDICATION: Hypoxic [...] Kendall Rosario is a 32 y.o. female (?) presenting as a transfer from [place] for acute re spiratory distress in the context of likely pre eclampsia at 2 weeks s/p delivery. Per chart review, her course was complicated by sepsis s/p septic thr ombopheblitis of L cephalic vein s/p excision of infected vein 20-30cm. During that hospital ization, the patient developed hypoxemia and HTN. She required intubation and treatment of her HTN with labetolol and nicardipine drip. Xray upon admission to [facility] shows pulmonary ed robert and possible upper lobe pneumonia. TTE at outside hospital negative for cardi omyopathy with EF 60%. Given hx of pre eclampsia at time of delivery, as well as current severe range HTN and 1+ p roteinuria, this patient meets criteria for severe pre eclampsia. She is hyperreflexic on e xam, and with evidence of pulmonary edema on Xray, both of which may be consistent with pre eclampsia. Recommendations: - Magnesium sulfate infusion 1g/hr x 24 [...] daily (Hct, plt, Cr, AST, Uric Acid). Wo uld also recommend completing a 24 hour urine protein assessment. - Defer antihypertensive management to MICU team, with recommended BP goal < 150/90 - Recommend obtaining all medical records from and delivery for review Thank you for this interesting consultation. We will continue to follow Kendall's course. This patient was seen and discussed with Drs. Rodriguez and Salomon who agree with the assessm ent and plan. CARMEN HA MD PGY-4 documented in this encounter Miscellaneous Notes Scan - Other, Faculty - 10/17/2012 7:49 AM PSTElectronically signed by Faculty Other at 7:49 AM PSTScan - Other, Faculty - 10/16/2012 7:34 AM PST can - Other, Faculty - 10/16/2012 7:34 AM PSTElec tronically signed by Faculty Other at 10/16/2012 7:34 AM PSTScan - Other, Faculty - 013 7:34 AM PST can - Othe r, Faculty - 10/16/2012 7:34 AM PST 7: 34 AM PSTScan - Other, Faculty - 10/16/2012 7:34 AM PST can - Other, Faculty - 10/16/2012 7:34 AM PSTElectronically s igned by Faculty Other at 10/16/2012 7:34 AM PSTPlan of Care - Chrystal JeanGARTH - 10/13/2012 7:27 AM PSTProblem: Case Management Goals Goal: Discharge Needs Met Late entry: Medicaid comfort car transport arranged on 10/10 for 1400 pick-up on 10/12. Signi ficant other to ride along. Without further CM needs. Chrystal ULLOA RN - CM pgr [phone] lan of Care - Jose Jacques RN - 10/12/2012 9:59 AM PSTProblem: Infection, Risk/Actual (Adult, Obstetrics) Goal: Signs and symptoms of listed potential problems will be absent or manageable (referen ce (Pressure Ulcer (Adult, Obstetrics)) CPG) Goals: 1. Pt will not exhibit s/s of infection in LUE 2. Pt BP will remain within parameters, SBP < 150 is goal 3. Pt will not experience respiratory distress s/s. Teach pt how to change arm dressing Interventions: 1. Assess VS for increased temp, WBC, increased pain, swelling, edema, drainage or erythema in LUE. Perform W/D dressing changes as ordered by MD Monitor I/O. 2. Monitor for edema, BP Q 4 hrs. Administer BP medication, I.e., labetalol and PRN hydrala zine. Keep SBP below 150 3. Encourage IS/PEP, CDB. Have RT eval. Encourage use of home inhaler and PRN inhaler as or dered by MD. Monitor respiratory status and oxygen saturation. Have pt change dressing and answer with any questions she may have valuation - Francesca Chapman RN - 10/12/2012 2:50 AM PSTProblem: Infection, Risk/Actual (Adult, Obstetrics) Goal: Signs and symptoms of listed potential problems will be absent or manageable (referen ce (Pressure Ulcer (Adult, Obstetrics)) CPG) Goals: 1. Pt will not exhibit s/s of infection in LUE 2. Pt BP will remain within parameters, SBP < 150 is goal 3. Pt will not experience respiratory distress s/s. Interventions: 1. Assess VS for increased temp, WBC, increased pain, swelling, edema, drainage or erythema in LUE. Perform W/D dressing changes as ordered by MD Monitor I/O. 2. Monitor for edema, BP Q 4 hrs. Administer BP medication, I.e., labetalol and PRN hydrala zine. Keep SBP below 150 3. Encourage IS/PEP, CDB. Have RT eval. Encourage use of home inhaler and PRN inhaler as or dered by MD. Monitor respiratory status and oxygen saturation. Interventions that worked/didn't work:Pt SBP went up to 173 last night. MD ordered po hydra lazine x 1. Pt experienced increased anxiety with BP increase and asked for PRN xanax to be ordered by MD refused. Pt witnessed dressing change but did not want to participate. Tylenol effective for headache. Pt did not require PRN inhaler My recommendations forward:See above. Monitor BP and ensure pt has bp medication regimen on board before D/C in am. Patient Stability:Moderately Stable lan of Care - Jeimy Chapman RN - 10/12/2012 2:50 AM PSTProblem: Infection, Risk/Actual (Adult, Obstetrics) Goal: Signs and symptoms of listed potential problems will be absent or manageable (deborah dinero (Pressure Ulcer (Adult, Obstetrics)) CPG) Goals: 1. Pt will not exhibit s/s of infection in LUE 2. Pt BP will remain within parameters, SBP < 150 is goal 3. Pt will not experience respiratory distress s/s. Interventions: 1. Assess VS for increased temp, WBC, increased pain, swelling, edema, drainage or erythema in LUE. Perform W/D dressing changes as ordered by Monitor I/O. 2. Monitor for edema, BP Q 4 hrs. Administer BP medication, I.e., labetalol and PRN hydrala zine. Keep SBP below 150 3. Encourage IS/PEP, CDB. Have RT eval. Encourage use of home inhaler and PRN inhaler as or dered by . Monitor respiratory status and oxygen saturation. andoff - Samantha Chapman RN - 10/12/2012 2:49 AM PSTPrimary focus of stay: 32 female 2 wks post s/p c-sec tion with resolving HT r/t severe pre-clampsia. Transfer from [place] s/p developing respi ratory distress s/p intubation/ extubation in ICU, septic thrombophlebitis of left cephalic vein s/p thrombectomy. LUE septic thrombophlebitis s/p thrombectomy PmHx: IVDU, methamphetamine abuser, homeless. Meth use into third trimester of . A ll three children are in foster care at this time. Pt plans to participate in inpatient reha b on Saturday in [place] in order to regain custody of children. Pertinent physical findings: Generalized edema, resolving. Vitals: HTN, resolving. Goal SBP < 150 Respiratory status: Stable on RA, home inhaler at bedside not as effective. Got order for a lbuteral inhaler. Hx of asthma. Coarseness in bases in posterior garcia. Isolation Precautions: None Access/fluids: None, MD aware. Diet/GI: Reg diet, daily BM. Refusing stool softner CBGs: None : Voids in hat, brown lochia present Mobility: Up ad aleisha Wounds/Drains: Healing incision. LUE surgical wound with W/D BID dressing changes . Next one due in am Critical labs: None Critical meds: BP medication Orders to follow up on: Dressing changes, BP and BP medications. SBP went up to 173 overnig ht. PO hydralazine given x 1. Last pain assessment/reassessment: Pain is adequately controlled with oxycodone 5mg and Tyl enol 650mg PRN Psych/social issues: Hx of Bipolar Last visit (i.e. Falls/Activity/Comfort/Environment/Toileting/Skin): Independent Anticipated or pending procedures: D/C on Saturday at 1100. Medicare transportation Discharge plan: See above. valuation - Graham Jacques RN - 10/11/2012 4:53 PM PSTProblem: Infection, Risk/Actual (Adult, Obstetrics) Goal: Signs and symptoms of listed potential problems will be absent or manageable (referen ce (Pressure Ulcer (Adult, Obstetrics)) CPG) Goals: 1. Pt will not exhibit s/s of infection in LUE 2. Pt BP will remain within parameters, SBP < 150 is goal 3. Pt will not experience respiratory distress s/s. Interventions: 1. Assess VS for increased temp, WBC, increased pain, swelling, edema, drainage or erythema in LUE. Perform W/D dressing changes as ordered by MD Monitor I/O. 2. Monitor for edema, BP Q 4 hrs. Administer BP medication, I.e., labetalol and PRN hydrala zine. Keep SBP below 150 3. Encourage IS/PEP, CDB. Have RT eval. Encourage use of home inhaler and PRN inhaler as or dered by MD. Monitor respiratory status and oxygen saturation. Interventions that worked/didn't work Pretty co operative today , Oxy for pain with goo d relief , OOb Ad aleisha My recommendations forward: Needs teaching as to how to change dressing LUE Patient Stability:Moderately Stable andoff - Jose Jacques RN - 10/11/2012 4:51 PM PSTRN EGS Handoff Report Primary focus of stay: 32 female 2 wks post s/p with resolving HT r/t naila re pre-clampsia. Transfer from [place] s/p developing respiratory distress s/p intubation/ extubation in ICU, septic thrombophlebitis of left cephalic vein s/p thrombectomy. LUE septic thrombophlebitis s/p thrombectomy PmHx: IVDU, methamphetamine abuser, homeless. Meth use into third trimester of . A ll three children are in foster care at this time. Pt plans to participate in inpatient reha b on Saturday in [place] in order to regain custody of children. Pertinent physical findings: Generalized edema, resolving. Vitals: HTN, resolving. Goal SBP < 150 Respiratory status: Stable on RA, home inhaler at bedside not as effective. Got order for albuteral inhaler. Hx of asthma. Coarseness in bases in posterior garcia. Isolation Precautions: None Access/fluids: None, MD aware. Diet/GI: Reg diet, daily BM. Refusing stool softner CBGs: None : Voids in hat, brown lochia present Mobility: Up ad aleisha Wounds/Drains: Healing incision. LUE surgical wound with W/D BID dressing changes . Need teaching to change dressing, Pt says she Has a friend who can help Critical labs: None Critical meds: BP medication Orders to follow up on: Dressing changes, BP and BP medications Last pain assessment/reassessment: Pain is adequately controlled with oxycodone 5mg and Tyl enol 650mg PRN Psych/social issues: Hx of Bipolar Last visit (i.e. Falls/Activity/Comfort/Environment/Toileting/Skin): Independent Anticipated or pending procedures: D/C on Saturday at 1400. Medicare transportation Discharge plan: See above. lan of Jack Gill - 10/11/2012 3:52 PM PSTProblem: Case Management Goals Goal: Discharge Needs Met Outcome: Expected progress toward goal Chart reviewed, pt is tentatively scheduled to discharge tomorrow, has medicaid comfort car e transport arranged for 1400 pickup tomorrow to transport she and her SO to [place]. Spo ke with pt's bedside RN and requested she begin instruction on dressing changes to prepare p t for DC tomorrow. She will need to DC with some dressing change supplies. GARTH Murray [facility] [address] [place] [id number] lan of Marvin Leon RN - 10/11/2012 10:08 AM PSTProblem: Infection, Risk/Actual (Adult, Obstetrics) Goal: Signs and symptoms of listed potential problems will be absent or manageable (deborah ce (Pressure Ulcer (Adult, Obstetrics)) CPG) Goals: 1. Pt will not exhibit s/s of infection in LUE 2. Pt BP will remain within parameters, SBP < 150 is goal 3. Pt will not experience respiratory distress s/s. Interventions: 1. Assess VS for increased temp, WBC, increased pain, swelling, edema, drainage or erythema in LUE. Perform W/D dressing changes as ordered by MD Monitor I/O. 2. Monitor for edema, BP Q 4 hrs. Administer BP medication, I.e., labetalol and PRN hydrala zine. Keep SBP below 150 3. Encourage IS/PEP, CDB. Have RT eval. Encourage use of home inhaler and PRN inhaler as or dered by . Monitor respiratory status and oxygen saturation. valuation - Francesca Chapman RN - 10/11/2012 5:39 AM PSTProblem: Infection, Risk/Actual (Adult, Obstetrics) Goal: Signs and symptoms of listed potential problems will be absent or manageable (referen ce (Pressure Ulcer (Adult, Obstetrics)) CPG) Goals: 1. Pt will not exhibit s/s of infection in LUE 2. Pt BP will remain within parameters, SBP < 150 is goal 3. Pt will not experience respiratory distress s/s. Interventions: 1. Assess VS for increased temp, WBC, increased pain, swelling, edema, drainage or erythema in LUE. Perform W/D dressing changes as ordered by MD Monitor I/O. 2. Monitor for edema, BP Q 4 hrs. Administer BP medication, I.e., labetalol and PRN hydrala zine. Keep SBP below 150 3. Encourage IS/PEP, CDB. Have RT eval. Encourage use of home inhaler and PRN inhaler as or dered by MD. Monitor respiratory status and oxygen saturation. Interventions that worked/didn't work: LUE remained kentrell wrapped, labetolol effective for ma intaining BP within parameters. Pt home inhaler not as effective as PRN Albuterol in haler. CDB with encouragement. My recommendations forward: See above interventions. Patient Stability:Moderately Stable lan of Care - Jeimy Chapman RN - 10/11/2012 2:10 AM PSTProblem: Infection, Risk/Actual (Adult, Obstetrics) Goal: Signs and symptoms of listed potential problems will be absent or manageable (referen ce (Pressure Ulcer (Adult, Obstetrics)) CPG) Goals: 1. Pt will not exhibit s/s of infection in LUE 2. Pt BP will remain within parameters, SBP < 150 is goal 3. Pt will not experience respiratory distress s/s. Interventions: 1. Assess VS for increased temp, WBC, increased pain, swelling, edema, drainage or erythema in LUE. Perform W/D dressing changes as ordered by Monitor I/O. 2. Monitor for edema, BP Q 4 hrs. Administer BP medication, I.e., labetalol and PRN hydrala zine. Keep SBP below 150 3. Encourage IS/PEP, CDB. Have RT eval. Encourage use of home inhaler and PRN inhaler as or dered by MD. Monitor respiratory status and oxygen saturation. andoff - Samantha Chapman RN - 10/11/2012 1:47 AM PSTRN EGS Handoff Report Primary focus of stay: 32 female 2 wks post s/p with resolving HT r/t naila re pre-clampsia. Transfer from [place] s/p developing respiratory distress s/p intubation/ extubation in ICU, septic thrombophlebitis of left cephalic vein s/p thrombectomy. LUE septic thrombophlebitis s/p thrombectomy PmHx: IVDU, methamphetamine abuser, homeless. Meth use into third trimester of . A ll three children are in foster care at this time. Pt plans to participate in inpatient reha b on Saturday in [place] in order to regain custody of children. Pertinent physical findings: Generalized edema, resolving. Vitals: HTN, resolving. Goal SBP < 150 Respiratory status: Stable on RA, home inhaler at bedside not as effective. Got order for albuteral inhaler. Hx of asthma. Coarseness in bases in posterior garcia. Isolation Precautions: None Access/fluids: None, MD aware. Diet/GI: Reg diet, daily BM. Refusing stool softner CBGs: None : Voids in hat, brown lochia present Mobility: Up ad aleisha Wounds/Drains: Healing incision. LUE surgical wound with W/D BID dressing changes . Next one due in am Critical labs: None Critical meds: BP medication Orders to follow up on: Dressing changes, BP and BP medications Last pain assessment/reassessment: Pain is adequately controlled with oxycodone 5mg and Tyl enol 650mg PRN Psych/social issues: Hx of Bipolar Last visit (i.e. Falls/Activity/Comfort/Environment/Toileting/Skin): Independent Anticipated or pending procedures: D/C on Saturday at 1100. Medicare transportation Discharge plan: See above. lan of Yvonne Osorio RCP - 10/10/2012 10:53 PM PST Problem: RT Goals & Interventions Goal: Evaluation History and Assessment Pulmonary problems:Asthma Smoking history: History Smoking status Current Everyday Smoker Smokeless tobacco Not on file Results of recent Chest X-ray: CXR * 10/07/2012 Value: STUDY: CHEST 1 VIEW 10/07/12 06:03:00 COMPARISON: Chest x-ray one view 10/06/2012 HISTORY: Hypoxic respiratory failure FINDINGS: An endotracheal tube tip now terminate s 4.5 cm proximal to the luke within the trachea. An enteric tube tip terminates beneath the diaphragm and outside the [id number]. A mild groundglass opacification the lungs wit [...] signed / Willian Mcghee 10/07/2012 14:21 PM Pain: Oxygen requirement: $ Simple O2 Delivery: nc Oxygen Flow Rate: 6 Oxygen Flow Unit of Measure: L/min FIO2 (%): 40 fraction of O2 Heart rate: 71 Respiratory rate: 18 Temperature: Temp: 37 C (98.6 F) Breathsounds: diminished Cough and sputum production: strong congested cough Respiratory Acuity and Protocol Plan A respiratory evaluation has been completed. Based on this assessment Evaluated for treatme nt under home maintenance therapy. lan of Ab shoemakera Anette - 10/10/2012 4:22 PM PST Reviewed previous SW notes and spoke with vocational case manager about pt. Pt is now in a single garcia room. Pt was asking for clothes for her S.O. Met with pt, who was alert and appeared comfortable sitting up in bed. Cell phone and lapt op computer nearby. (Pt was talking on the phone with her mother as I entered, and stated she would call her mo m back. S.O. was sleeping on a cot in the pt's room. Apparently someone gave him some scru bs. It looked like he had scrub bottoms and a mack shirt on.) Explained to pt we did not have clothes to give to visitors. Pt readily accepted this. Later discussed pt and S.O. with the garcia sales planning manager and the charge loader. Encouraged being c onsistent and maintaining clear boundaries and remembering that 'visiting is a privilege' an d if concerns arose about S.O.'s behavior to contact public safety. (Please see Francy LENTZ notes of yesterday for details.) Reinforced the pt as the focus of care. hobber stated system has been at equilibrium today, without incident.. Xiomy Alonso, CONTINUOUS ABSORPTION PROCESS OPERATOR, [id number] lan of Care - Chrystal Jean RN - 10/10/2012 4:10 PM PSTProblem: Case Management Goals Goal: Discharge Needs Met Just notified by Yasmin Saleem MD of GM 4 patient will be discharging home Saturday. She and her sign ificant other will need teaching regarding dressing changes and most likely dressing supplie s. Patient apparently has changed her mind about locality of drug rehab and states she found a place in [facility] and her intake is first thing Saturday morning. Plan for discharge at 14 00 on Saturday. CM requested comfort car for patient and significant other. Of note, patient's significant other has been making inappropriate requests for clothing, a nd condoms (reported to by nursing staff). Patient advocate involved as is EDISON LENTZ. Chrystal ULLOA RN - pgr [phone] andoff - Kris Gonzales RN - 10/10/2012 11:41 AM PSTRN EGS Handoff Report Primary focus of stay: LUE septic thrombus S/P thrombectomy. PmHx: 2.5 weeks post with resolving HTN r/t severe preeclampsia. Respiratory distres s s/p intubation/extubation in ICU. Pertinent physical findings: Generalized pitting edema, resolving. Vitals: HTN Respiratory status: Stable on RA Isolation Precautions: None Access/fluids: None Diet/GI: Regular. Daily BM's CBGs: None : Voids in hat. Brown lochia present. Mobility: Up ad aleisha Wounds/Drains: Healing incision. LUE surgical would with W/D BID changes. Both do ne this shift. Critical labs: None Critical meds: BP meds Orders to follow up on: None Last pain assessment/reassessment: 1800. Resting comfortably in bed. Psych/social issues: Meth use into 3rd trimester of , Bipolar, . Children are all in foster care at this time. Pt plans to participate in inpatient rehab in order to rega in custody of children. Last visit (i.e. Falls/Activity/Comfort/Environment/Toileting/Skin): FACETS WDL Anticipated or pending procedures: None at this time. Discharge plan: October 12 @ 1400. Medicare transport. valuation - Joann Clark RN - 10/10/2012 11:41 AM PSTProblem: Infection, Risk/Actual (Adult, Obstetrics) Goal: Signs and symptoms of listed potential problems will be absent or manageable (referen ce (Pressure Ulcer (Adult, Obstetrics)) CPG) Goals: Pt will be free of s/s of infection this shift. Pt will demonstrate resolving preeclampsia this shift. Interventions: Encourage pt to report increased pain in affected extremity. Monitor for increased swelling or erythemia in affected extremity. Monitor VS for increase in temp. Monitor BP for HTN and medicate appropriately. Monitor edema and UOP. Interventions that worked/didn't work:Interventions successful. My recommendations forward:Continue above listed interventions. Patient Stability:Moderately Stable lan of Care - Joann Larkin RN - 10/10/2012 11:41 AM PSTProblem: Infection, Risk/Actual (Adult, Obstetrics) Goal: Signs and symptoms of listed potential problems will be absent or manageable (referen ce (Pressure Ulcer (Adult, Obstetrics)) CPG) Goals: Pt will be free of s/s of infection this shift. Pt will demonstrate resolving preeclampsia this shift. Interventions: Encourage pt to report increased pain in affected extremity. Monitor for increased swelling or erythemia in affected extremity. Monitor VS for increase in temp. Monitor BP for HTN and medicate appropriately. Monitor edema and UOP. lan of Care - Chrystal Jean RN - 10/10/2012 9:41 AM PSTProblem: Case Management Goals Goal: Discharge Needs Met Per chart review: Patient transferred to [facility] d/t need for private room. Transferred here fr om [place] with hypoxic respiratory failure, sepsis, severe pre-eclampsia. Initially admit gayathri to 12K ICU. Patient is post- 2 weeks s/p . Patient and significant other (who has been rooming-in with patient) have hx IVDU methamphetamines. Both have expressed de sire to enter rehab in [facility] per SW note and have been given information. CM plan to stop and visit with patient. Covered by [facility] [place] [employer] so most likely has transport ation benefits. Chrystal ULLOA RN - pgr [phone] valuation - Katarzyna Wilde RN - 10/10/2012 4:51 AM PSTProblem: General Plan of Care (Adult) Intervention: NPEOC Acute Goal: 1. Pt will verbalize that their pain level is being managed within a range that is adequate to them . 2. Pt will not fall during this shift 3. Pt will not experience skin breakdown related to bedrest or incontinence. Interventions: 1. Q4hr minimum pain assessments, medicate appropriately, use of ice/heat/repositioning to aid in pain control. 2. Bed alarm on as necessary, bed in low position, pain control, offers for toileting q2hrs and PRN, call light and personal belongings within reach, frequent visual checks to ensure pt safety. 3. Q2hr turns as necessary, elevation of necessary extremities/bony prominences, use of bar rier cream, offers for toileting q2hrs and PRN. Interventions that worked/didn't work:The above listed interventions were effective. My recommendations forward:Continue with the plan of care. Patient Stability:Moderately Stable andoff - Katarzyna Elmore RN - 10/10/2012 4:51 AM PSTNursing Handoff Report Primary focus of stay: 2 weeks Post with resolving HTN from preeclampsia. Respirator y distress s/p intubation/ extubation. LUE thrombophlebitis s/p thrombectomy. Hx IVDU, Bipolar Pertinent physical findings: A/O, elevated BP's MD's Aware- has PRN Hydralazine if necessar y, RUE surgical wound with packed dressing- BID drsg changes. LUE inflammation with pillows, generaralized edema. PIV- R bicep-SL, BP's on R lower arm. incision healing, stil l with small amt lochia- using pads. Orders to follow up on: Continue with wet to dry dressing RUE bid Last pain assessment/reassessment: Oxycodone and Tylenol q4hs Psych/social issues: Used meth up to end of , baby and 2 other children in protect ayad custody, pt mother trying to get kids. Pt seems remorseful and trying to get kids back. SO is father of children, also using meth. They live in [place] and SO staying in hospital. Last patient visit (i.e. Falls/Activity/Comfort/Environment/Toileting/Skin): Change of shif t: resting in bed, walks to the bathroom independently, Voiding in hat, BM 10/08, good oral i ntake. Anticipated or pending procedures: Stay in hospital until Saturday for IV antibiotics , Infec tious disease to evaluate inflamed right upper extremity lan of Care - JamieKatarzyna garcia RN - 10/10/2012 4:51 AM PSTProblem: General Plan of Care (Adult) Intervention: NPEOC Acute Goal: 1. Pt will verbalize that their pain level is being managed within a range that is adequate to them . 2. Pt will not fall during this shift 3. Pt will not experience skin breakdown related to bedrest or incontinence. Interventions: 1. Q4hr minimum pain assessments, medicate appropriately, use of ice/heat/repositioning to aid in pain control. 2. Bed alarm on as necessary, bed in low position, pain control, offers for toileting q2hrs and PRN, call light and personal belongings within reach, frequent visual checks to ensure pt safety. 3. Q2hr turns as necessary, elevation of necessary extremities/bony prominences, use of bar rier cream, offers for toileting q2hrs and PRN. andoff - Charmaine Joseph RN - 10/09/2012 6:56 PM PSTNursing Handoff Report Primary focus of stay: Post Respiratory distress s/p intubation/ extubation. HTN, t hat is suspected to be continuing preeclampsia, LUE thrombophlebitis s/p thrombectomy. Hx IVDU, Bipolar, repeated 2.5 weeks ago . Pertinent physical findings: A/O, elevated BP MD Aware, RUE surgical wound with dressing. LUE inflammation with pillows, generaralized edema. PIV right upper extremity Orders to follow up on: wet to dry dressing LUE bid Last pain assessment/reassessment: 1844 denies pain Psych/social issues: Used meth up to end of , baby and 2 other children in protect ayad custody, pt mother trying to get kids. Pt claims to be sober for 17 days Pt seems remorseful and trying to get kids back. SO sleeping in the waiting area, is father of children, also using meth.They live in [facility] and SO staying in hospital. Last patient visit (i.e. Falls/Activity/Comfort/Environment/Toileting/Skin): Independent Anticipated or pending procedures: Stay in hospital until Saturday for IV antibiotics , Infec tious disease to evaluate inflamed right upper extremity lan of [facility] - Mack Mari - 10/09/2012 5:16 PM PSTProblem: Goals & Interventions Intervention: Substance Abuse Treatment Referral(s) DOBBY LOOM CHAIN PEGGER had conference with AIDE Brown and sales planning manager Jose Antonio re: issues with pt's significant oth er (SO) and shared pt room. sales planning manager and Pt Advocate plan to meet with pt and SO, and hope fully a single room will be found for pt tonight. Pt and SO are from [place], and are on t he 'loud' side for a shared room. Social work referral in [facility] as well for referral to inpatient drug rehab for pt and SO. MS Moses met with pt and SO in pt's room, and is providing them with a list of drug treatment facil ities in [place], which is where they would prefer to get treatment. 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 DOBBY LOOM CHAIN PEGGER will pass-off to covering concrete spreader for ongoing support and care coordination. J Luis Mari, CONTINUOUS ABSORPTION PROCESS OPERATOR, pager [phone] andoff - Edel Eubanks RN - 10/09/2012 7:54 AM PSTNursing Handoff Report Primary focus of stay: Post Respiratory distress s/p intubation/ extubation. HTN, t hat is suspected to be continuing preeclampsia, LUE thrombophlebitis s/p thrombectomy. Hx IVDU, Bipolar, repeated 2.5 weeks ago. Pertinent physical findings: A/O, elevated BP MD Aware, RUE surgical wound with dressing. LUE inflammation with pillows, generaralized edema. PIV in right ankle Orders to follow up on: wet to dry dressing RUE bid, last done at 1600 Last pain assessment/reassessment: denies pain this shift. Psych/social issues: Used meth up to end of , baby and 2 other children in protect ayad custody, pt mother trying to get kids. Pt seems remorseful and trying to get kids back. SO sleeping in the waiting area, is father of children, also using meth.They live in [place] and SO staying in hospital. Last patient visit (i.e. Falls/Activity/Comfort/Environment/Toileting/Skin): lying in bed, walks to the bathroom independently, Voiding in hat, BM yesterday, good oral intake. Anticipated or pending procedures: Stay in hospital until Saturday for IV antibiotics , Infec tious disease to evaluate inflamed right upper extremity valuation - Elizabet Lara RN - 10/09/2012 6:56 AM PSTProblem: General Plan of Care (Adult) Intervention: NPEOC Acute Goals: 1.) Patient will rate pain <3/10 2.) Patient will maintain skin integrity and will be without falls 3.) Manage and prevent complications of infection during this shift. 4.) Adequate rest Interventions: 1.) Assess pain every 3 hours and PRN offer and administer medication as needed 2.) Encourage patient to mobilize as much as possible, including moving in bed; prevent pat ient from lying on tubes. Offer and provide assistance Q2-3hours and as needed. Bed in low p osition with brakes locked, side rails x2, room near station, call light in reach, clutter f ree environment with needed personal items in reach 3.) Assess patient for fever and stable vital signs. Maintain strict hand hygiene and clean environment. Assess and monitor wounds and access sites. 4.) Cluster care, provide quiet environment as Interventions that worked/didn't work: Pt with no complaint of pain this shift. My recommendations forward: continue with the plan of care Patient Stability:Moderately Stable. andoff - Casi Lara RN - 10/09/2012 5:14 AM PSTNursing Handoff Report Primary focus of stay: Post Respiratory distress s/p intubation/ extubation. HTN, t hat is suspected to be continuing preeclampsia, LUE thrombophlebitis s/p thrombectomy. Hx IVDU, Bipolar, repeated 2.5 weeks ago . Pertinent physical findings: A/O, elevated BP MD Aware, RUE surgical wound with dressing. LUE inflammation with pillows, generaralized edema. PIV in right ankle Orders to follow up on: wet to dry dressing RUE bid, done at 2310 10/08 Last pain assessment/reassessment: 0600, denies pain this shift. Psych/social issues: Used meth up to end of , baby and 2 other children in protect ayad custody, pt mother trying to get kids. Pt seems remorseful and trying to get kids back. SO sleeping in the waiting area, is father of children, also using meth.They live in [facility] and SO staying in hospital. Last patient visit (i.e. Falls/Activity/Comfort/Environment/Toileting/Skin): 0600, lying in bed, walks to the bathroom independently, Voiding in hat, BM yesterday, good oral intake. Anticipated or pending procedures: Stay in hospital until Saturday for IV antibiotics , Infec tious disease to evaluate inflamed right upper extremity lan of Care - Kayceks, Mark bryson RN - 10/09/2012 12:54 AM PSTProblem: General Plan of Care (Adult) Intervention: NPEOC Acute Goals: 1.) Patient will rate pain <3/10 2.) Patient will maintain skin integrity and will be without falls 3.) Manage and prevent complications of infection during this shift. 4.) Adequate rest Interventions: 1.) Assess pain every 3 hours and PRN offer and administer medication as needed 2.) Encourage patient to mobilize as much as possible, including moving in bed; prevent pat ient from lying on tubes. Offer and provide assistance Q2-3hours and as needed. Bed in low p osition with brakes locked, side rails x2, room near station, call light in reach, clutter f ree environment with needed personal items in reach 3.) Assess patient for fever and stable vital signs. Maintain strict hand hygiene and clean environment. Assess and monitor wounds and access sites. 4.) Cluster care, provide quiet environment as Jarrod Martell - 10/08/2012 8:13 PM PSTProblem: General Plan of Care (Adult) Intervention: NPEOC Critical Problem: General Plan of Care (Adult) Goal: Individualization/Patient-Specific Goal Goals: 1.) Patient will rate pain <3/10 2.) Patient will maintain skin integrity and will be without falls 3.) Manage and prevent complications of infection during this shift. 4.) Adequate rest Interventions: 1.) Assess pain every 3 hours and PRN offer and administer medication as needed 2.) Encourage patient to mobilize as much as possible, including moving in bed; prevent pat ient from lying on tubes. Offer and provide assistance Q2-3hours and as needed. Bed in low p osition with brakes locked, side rails x2, room near station, call light in reach, clutter f ree environment with needed personal items in reach 3.) Assess patient for fever and stable vital signs. Maintain strict hand hygiene and clean environment. Assess and monitor wounds and access sites. 4.) Cluster care, provide quiet environment as able Interventions that worked/didn't work:All above interventions wking well. No attempts OOB, calling semi-appropriately, no pain issues. My recommendations forward:Continue above interventions and pay close attn to mental status Patient Stability:Moderately Stable lan of Care - Smooth Rios - 10/08/2012 8:12 PM PSTProblem: General Plan of Care (Adult) Intervention: NPEOC Critical Problem: General Plan of Care (Adult) Goal: Individualization/Patient-Specific Goal Goals: 1.) Patient will rate pain <3/10 2.) Patient will maintain skin integrity and will be without falls 3.) Manage and prevent complications of infection during this shift. 4.) Adequate rest Interventions: 1.) Assess pain every 3 hours and PRN offer and administer medication as needed 2.) Encourage patient to mobilize as much as possible, including moving in bed; prevent pat ient from lying on tubes. Offer and provide assistance Q2-3hours and as needed. Bed in low p osition with brakes locked, side rails x2, room near station, call light in reach, clutter f ree environment with needed personal items in reach 3.) Assess patient for fever and stable vital signs. Maintain strict hand hygiene and clean environment. Assess and monitor wounds and access sites. 4.) Cluster care, provide quiet environment as able ricket - Smooth Rios - 0 10/08/2012 8:11 PM PST Filed: 10/08/12 1676 Note Time: 10/08/121841 Nursing Handoff Report Primary focus of stay: preeclampsia, LUE thrombectomy Pertinent physical findings: hypertension, pulm edema Orders to follow up on: vanco level pending, dose given, wet to dry dressing RUE bid, done at 0900 Last pain assessment/reassessment: 2300-Denies at present Psych/social issues: used meth up to end of , baby and 2 other children in protect ayad custody, pt mother trying to get kids. Pt seems remorseful and trying to get kids back. SO at bedside, is father of children, also using meth.They live in [facility] and SO staying i n hospital. Last patient visit (i.e. Falls/Activity/Comfort/Environment/Toileting/Skin): ambulated briones s well, voiding, bm this am, good diet intake, Anticipated or pending procedures: stay in hospital until Saturday for IV antibiotics Smooth Garcia - 7:26 PM PSTNursing Handoff Report Primary focus of stay: preeclampsia, LUE thrombectomy Pertinent physical findings: hypertension, pulm edema Orders to follow up on: wet to dry dressing RUE bid, done at 0900. IV ABX, right foot iv. Last pain assessment/reassessment: left arm pain-oxycodone Psych/social issues: used meth up to end of , baby and 2 other children in protect ayad custody, pt mother trying to get kids. Pt seems remorseful and trying to get kids back. SO at bedside, is father of children, also using meth.They live in [facility] and SO staying i n hospital. Last patient visit (i.e. Falls/Activity/Comfort/Environment/Toileting/Skin): ambulated briones s well, voiding, bm this am, good diet intake, Anticipated or pending procedures: stay in hospital until Saturday for IV antibiotics, ID con sult tomorrow. Helen Graves RN - 10/08/2012 6:42 PM PSTNursing Handoff Report Primary focus of stay: preeclampsia, LUE thrombectomy Pertinent physical findings: hypertension, pulm edema Orders to follow up on: vanco level pending, dose given, wet to dry dressing RUE bid, done at 0900 Last pain assessment/reassessment: left arm pain- got dilaudid 1 mg at 08 Psych/social issues: used meth up to end of , baby and 2 other children in protect ayad custody, pt mother trying to get kids. Pt seems remorseful and trying to get kids back. SO at bedside, is father of children, also using meth.They live in [facility] and SO staying [facility]. Last patient visit (i.e. Falls/Activity/Comfort/Environment/Toileting/Skin): ambulated briones s well, voiding, bm this am, good diet intake, Anticipated or pending procedures: stay in hospital until Saturday for IV antibiotics lan of Care - Shauna Brown - 10/08/2012 2:49 PM PSTProblem: Case Management Goals Goal: Discharge Needs Met 5 C CM will now follow patient for potential discharge needs as [place] [id number] andDebby Almonte ra, RN - 10/08/2012 10:19 AM PSTNursing Handoff Report Primary focus of stay: preeclampsia, LUE thrombectomy Pertinent physical findings: hypertension, pulm edema Orders to follow up on: vanco level pending, dose given, wet to dry dressing RUE bid, done at 0900 Last pain assessment/reassessment: left arm pain- got dilaudid 1 mg at 08 Psych/social issues: used meth up to end of , baby and 2 other children in protect ayad custody, pt mother trying to get kids. Pt seems remorseful and trying to get kids back. SO at bedside, is father of children, also using meth.[facility]. Last patient visit (i.e. Falls/Activity/Comfort/Environment/Toileting/Skin): ambulated briones s well, voiding, bm this am, good diet intake, Anticipated or pending procedures: stay in hospital until Saturday for IV antibioticsElectron ically signed by Tiff Steel RN at 10/08/2012 10:31 AM PSTEvaluation - James Brandon RN - 10/08/2012 7:30 AM PSTProblem: Infection, Risk/Actual (Adult, Obstetrics) Goal: Signs and symptoms of listed potential problems will be absent or manageable (referen ce (Pressure Ulcer (Adult, Obstetrics)) CPG) Goals: Pt will report pain level at 3 or less. Pt will remain hemodynamically stable during my shift, SBP < 150, and no sign a nd symptom of infection. Pt will be free from fall and injury during my shift. Interventions: Assess pain frequently and medicate as needed per NOV. Monitor VS's, EKG, I&O for sign of hemodynamic instability and not vivienne MD. Continuously check the room for safety, bed in low position, wheel s locked, call light within reach. Interventions that worked/didn't work:VSS, received Dilaudid for pain. My recommendations forward:continue plan of care Patient Stability:Moderately StableElectronically signed by Seble Brandon RN at 10/08 7:30 AM PSTHandoff - Seble Brandon RN - 10/08/2012 12:58 AM PSTNursing Handoff Report Primary focus of stay: Transferred from OSH/[place] : Resp distress, post pre ecla mpsia at 2 wks s/p c section delivery: septic thrombophebitis L cephalic vein/post thrombec belia on 10/01 HX: HTN, asthma, anxiety, bipolar, IVDA Pertinent physical findings: Alert, oriented, c/o L arm pain, up to BSC with one person ass ist. Received Bumex for pulmonary edema. Wean Nicardipine gtt, and started on Labetalol po. Orders to follow up on: need new PIV, all her PIV's from OSH Last pain assessment/reassessment: dilaudid prn Psych/social issues: boyfriend Jeovanny, 2 kids and baby in state custody. Last patient visit (i.e. Falls/Activity/Comfort/Environment/Toileting/Skin): dressing fong ed BID wet to dry, soak with kerlex and abd dressing. Anticipated or pending procedures: transfer to [facility]. lan of Care - Seble Brandon RN - 10/07/2012 10:49 PM PSTProblem: Infection, Risk/Actual (Adult, Obstetrics) Goal: Signs and symptoms of listed potential problems will be absent or manageable (eugenioen ce (Pressure Ulcer (Adult, Obstetrics)) CPG) Goals: Pt will report pain level at 3 or less. Pt will remain hemodynamically stable during my shift, SBP < 150, and no sign a nd symptom of infection. Pt will be free from fall and injury during my shift. Interventions: Assess pain frequently and medicate as needed per NOV. Monitor VS's, EKG, I&O for sign of hemodynamic instability and not vivienne MD. Continuously check the room for safety, bed in low position, wheel s locked, call light within reach. can - Carmen, Harley kerr - 10/07/2012 6:55 PM PST P M PSTPlan of Care - Shelby Redding RN - 10/07/2012 1:29 PM PSTProblem: Case Management G oals Intervention: Care Coordination Rounds Pt admitted to [facility] s/p pre-eclampsia post vs drug w/d, now extubated. CM [place] [id number] andoff - Aminta Braggcy - 10/07/2012 7:02 AM PSTNursing Handoff Report Primary focus of stay: Respiratory failure, preeclampsia, septic thrombus Pertinent physical findings: JOURDAN = 30 from SBT this am. Neuro intact. Appropriate. BP difficult to control this am since DC of nicardipine. Labetolol gtt started at 0650. Stevinson lent response to BUMEX over night. Orders to follow up on: 24 Hour Urine Collection started at 0500 10/07. Please transfer uri ne hourly into collection container on ice at bedside. If any urine is discarded collection must begin again! Extubation. Closure of surgical wound. Last pain assessment/reassessment: 0650. Pt reports pain in surgical site (LUE) as well as throat and lungs. MDs aware. Dilaudid dose to be increased. Psych/social issues: SO "J" is in waiting room. Please keep up to date. Complex social hi story. Last patient visit (i.e. Falls/Activity/Comfort/Environment/Toileting/Skin): Ongoing assess ments. No unmet needs except better pain control at this time. Anticipated or pending procedures: Extubation. Closure of surgical wound. ECHO to eval HF ? valuation - Katie Gonzalez - 10/07/2012 5:59 AM PSTProblem: General Plan of Care (Adult) Intervention: NPEOC Critical Problem:Respiratory failure r/o influenza, hypertension Goal: Pt will be free from acute neurologic deterioration. SBP will be maintained <180 Pt will be sedated to a RASS of 0 to -1. Pt will rate pain at an acceptable level throughout the shift. Pt will be free from skin breakdown. Pt will achieve adequate rest. Interventions: Frequent VS (including pain and neuro) assessments. Titration of nicardipine and utilization of pharmacologic agents to maintain SBP <180. Con tinuous Mag infusion as ordered. Q6 hour labs. Titration of propofol gtt to achieve desired RASS. Utilization of pharmacologic and behavioral/cognitive interventions for pain management. Reposition pt Q2 hours. Utilize turn sheets and pillows to alter position. Monitor hydrat ion status (I/O). Cleanse and moisturize skin prn. Cluster cares and manipulate the environment to promote typical circadian rhythms. Interventions that worked/didn't work: Pt responded well to 0.5mg Bumex- excellent UO and cleared up lung sounds in all garcia. Pt responded well to combination therapies for controlling BP (MgSO4 and pain control) Pain well controlled with dilaudid. Pt able to achieve some rest between cares, although probably not adequate. My recommendations forward: Continue diuresis prn. Continue SBP management. Continue dilaudid for pain. May need to add anxiolytic when pt more awake periods of anxiety throughout night. Wean to extubate. Pt indicates by writing and gestures she wants the tube out. Cluster cares and encourage typical circadian rhythms. Patient Stability:Moderately Unstable lan of Care - Katie Luna - 10/07/2012 12:41 AM PSTProblem: General Plan of Care (Adult) Intervention: NPEOC Critical Problem:Respiratory failure r/o influenza, hypertension Goal: Pt will be free from acute neurologic deterioration. SBP will be maintained <180 Pt will be sedated to a RASS of 0 to -1. Pt will rate pain at an acceptable level throughout the shift. Pt will be free from skin breakdown. Pt will achieve adequate rest. Interventions: Frequent VS (including pain and neuro) assessments. Titration of nicardipine and utilization of pharmacologic agents to maintain SBP <180. Con tinuous Mag infusion as ordered. Q6 hour labs. Titration of propofol gtt to achieve desired RASS. Utilization of pharmacologic and behavioral/cognitive interventions for pain management. Reposition pt Q2 hours. Utilize turn sheets and pillows to alter position. Monitor hydrat ion status (I/O). Cleanse and moisturize skin prn. Cluster cares and manipulate the environment to promote typical circadian rhythms. ccharley - Stephane Morales - 10/06/2012 8:27 PM PST Plan of Care - Raji Marroquin RCP - 10/06/2012 5:21 PM PSTProblem: RT Goals & Interventions Goal: Maintain ventilator support Readjusted Vt to 6cc/pbwKg lan of Care - Raji Beavers RCP - 10/06/2012 5:21 PM PSTProblem: RT Goals & Interventions Goal: Maintain ventilator support Patient received in 12kmicu already intubated. [facility]. [facility] Monique Shen - 10/06/2012 2:18 PM PSTUpdate en route LF: v/s stable, ETA 10. Advised 12K. El ectronically signed by Monique Garrison at 10/06/2012 2:19 PM PSTCorewell Health [facility] Sandra Patiño - 10/06/2012 12:41 PM PSTPt just departed referring, [facility] 10/06/2012 8:[address] Dias with Dr. Michell HERNANDEZ. Patient admitted at referring, post x 2 weeks, septic thrombophlebitis, intubated, Dr. Galarza accepts to MICU. Paged grp 18. El ectronically signed by Monique Garrison at 10/06/2012 8:47 AM PSTClinch [facility] Hospital Magaly barrientos - 10/06/2012 8:[address] SantosasElectronically signed by Monique Garrison at 0 10/06/2012 8:33 AM PSTdocumented in this encounter Plan of Treatment [...] | + +--------+ + + + | MONTY GUSMANSTICK ONLY | Urgent | 10/06/2012 | | [...] | + + + + + | [facility] | [address] | [place] [address] | | | SERVICES, CORE | [address] | | | + + + + + MAGNESIUM, PLASMA (10/11/2012 7:01 AM PST) + +---------+ + + + | Component | Value | Ref Range | Performed | Pathologist | | | | | At | Signature | + +---------+ + + + | MAGNESIUM,P | 1.6 (L) | 1.8 - 2.5 mg/dL | [facility] [...] [facility] | [address] | [place] [address] | | | SERVICES, CORE | [address] [...] [facility] | [address] | [place] [address] | | | SERVICES, CORE | PARK [...] | + + + + + | [facility] | [address] | [place] [address] | | | SERVICES, CORE | [address] | | | + + + + + MAGNESIUM, PLASMA (10/10/2012 6:11 AM PST) + +---------+ + + + | Component | Value | Ref Range | Performed | Pathologist | | | | | At | Signature | + +---------+ + + + | MAGNESIUM,P | 1.6 (L) | 1.8 - 2.5 mg/dL | [facility] [...] | + + + + + | [facility] | [address] | [place] [address] | | | [address], [place] | [address] | | | [...] [facility] | [address] | [place] [address] | | | SERVICES, CORE | P[address] [...] [facility] | [address] | [place] [address] | | | SERVICES, CORE | [address] [...] [facility] | [address] | [place] [address] | | | SERVICES, CORE | P[address] [...] [facility] | [address] | [place] [address] | | | SERVICES, CORE | PARK [...] | + + + + + | [facility] | [address] | [place] [address] | | | SERVICES, CORE | PARK [...] 2.5 mg/dL | [facility] | | | LASMA | | | [...] | + + + + + | [facility] | [address] | [place] [address] | | | SERVICES, CORE | [address] [...] [facility] | [address] | [place] [address] | | | SERVICES, CORE | PARK [...] | + + + + + | [facility] | [address] | [place] [address] | | | SERVICES, CORE | [address] | | | + + + + + PHILIPP HAWLEY (10/08/2012 9:21 AM PST) + + + [...] [facility] | [address] | [place] [address] | | | SERVICES, CORE | GEOVANY [...] | + + + + + | [facility] | [address] | [place] [address] | | | SERVICES, CORE | GEOVANY [...] + + | [facility] | [address] | [place] [address] | | | SERVICES, CORE | PARK [...] [facility] | [address] | [place] [address] | | | SERVICES, CORE | [address] | | | + + + + + MAGNESIUM, PLASMA (10/08/2012 2:47 AM PST) + +-------+ + + + | Component | Value | Ref Range | Performed | Pathologist | | | | | At | Signature | + +-------+ + + + | MAGNESIUM,P | 2.5 | 1.8 - 2.5 mg/dL | [facility] [...] | + + + + + | [facility] | [address] | [place] [address] | | | JEFF, SHAWNEE | [address] | | | [...] | + + + + + | [facility] | [address] | [place] [address] | | | SERVICES, [facility] [place] | [address] | | | + [...] the | | | | | | [id number]. A mild | | | | | | groundglassopacification | | | | | | the lungs with vascular | | | | | | indistinctness and | | | | | | septal linesis present. | | | | | | Moderate volume | | | | | | layering right and small | | | | | | left pleuraleffusions | | | | | | are evident. The | | | | | | cardia mediastinal | | | | | | silhouette isunchanged. | | | | | | Regional osseous | | | | | | structures are | | | | | [...] | + + + + + | [facility] | [address] | [place] [address] | | | SERVICES, CORE | PARK [...] | + + + + + | [facility] | [address] | [place] [address] | | | SERVICES, CORE | GEOVANY [...] | + + + + + | [facility] | [address] | [place] [address] | | | SHAWNEE AGUILAR | [address] | | | + + + + [...] [facility] | [address] | [place] [address] | | | SERVICES, CORE | PARK [...] | + + + + + | [facility] | [address] [facility] | [place] [address] | | | SERVICES, SHAWNEE | [address] [...] + + + | SPEC TYPE | Nasal/RECOOPERER swab | (none) | [facility] | | [...] + + + | Test done at daisy | [facility] | | | [facility] | | | SERVICES, CORE | + + + + + + + + | Performing | Address | City/State/Zipcode | Phone Number | | Organization | | | | + + + + + | [facility] | [address] | [place] [address] | | | SERVICES, CORE | [address] | | | + + + + + WES GUSMAN ONLY (10/06/2012 6:46 PM PST) + + [...] [facility] | [address] | [place] [address] | | | SERVICES, CORE | PARK [...] + | [facility] | [address] | [place] [address] | | | SERVICES, CORE | PARK [...] [facility] | [address] | [place] [address] | | | SERVICES, CORE | PARK [...] [facility] | [address] | [place] [address] | | | SERVICES, | [address] [...] AIRPORT - | | | | Final GRAM | | [facility] | | | | STAIN:No squamous | | | | | [...] + | [facility] - | [address] | [place] [address] | | | [place] | | | | + + + [...] | + + + + + | [facility] | [address] | [place] [address] | | | SERVICES, SHAWNEE | GEOVANY [...] [facility] | [address] | [place] [address] | | | SERVICES, | [address] [...] | + + + + + | [facility] | [address] | [place] [address] | | | SERVICES, | [address] [...] | + + + + + | [facility] | [address] | [place] [address] | | | SERVICES, CORE | [address] | | | + + + + + INR (10/06/2012 3:38 PM PST) + +-------+ + + + | Component | Value | Ref Range | Performed | Pathologist | | | | | At | Signature | + +-------+ + + + | INR | 1.07 | 0.90 - 1.20 INR | [facility] | | | | | [...] Venous Thromboembolism (2.0 - 3.0) INR INR for | LABORATORY | | most patients with mech. valves (2.5 - 3.5) INR | SERVICES, CORE | + + + + + + + + | Performing | Address | City/State/Zipcode | Phone Number | | Organization | | | | + + + + + | [facility] | [address] [facility] [facility] | [place] [address] | | | SERVICES, CORE | [address] | | | + + + + + MAGNESIUM, PLASMA (10/06/2012 3:38 PM PST) + +-------+ + + + | Component | Value | Ref Range | Performed | Pathologist | | | | | At | Signature | + +-------+ + + + | MAGNESIUM,P | 1.8 | 1.8 - 2.5 mg/dL | [facility] | | | L[facility] | | | [...] [facility] | [address] | [place] [address] | | | SERVICES, CORE | PARK [...] [facility] | [address] | [place] [address] | | | SERVICES, CORE | PARK [...] [facility] | [address] | [place] [address] | | | SERVICES, CORE | GEOVANY [...] | | | | Final | | [place] | | | | CULTURE RESULT:No growth | | | | | | (<1000 col/ml) after 24 | | | | | | hours | | | | + + + + + + + + | Specimen | + + | Urine - Urine | + + + + + + + | Performing | Address | City/State/Zipcode | Phone Number | | Organization | | | | + + + + + | [facility] - | [address] | [place] [address] | | | [place] | | | | + + + + + WES GUSMAN ONLY (10/06/2012 3:36 PM PST) + + [...] [facility] | [address] | [place] [address] | | | SERVICES, CORE | PARK [...] | + +---------+ + + + | NON-SQUMELISSA | Few (A) | None /hpf | [...] [facility] | [address] | [place] [address] | | | SERVICES, CORE | PARK [...] | + + + + + | [facility] | [address] | [place] [address] | | | SERVICES, CORE | GEOVANY [...] | | | | | | gastric body. | | | | | | Recommend advancing NG | | | | | | tube. Bowel gas pattern | | | | | | is nonobstructive. | | | | | | [...] | | | | | signed / Ezio | | | | | [...] | | + +---------+ + + | [facility] | | | | [facility]IOLOG[facility] | | | | + +---------+ + + X-RAY PORTABLE CHEST 1 VIEW (10/06/2012 3:25 PM PST) + + + + + + | Component | Value | Ref Range | Performed | Pathologist | | | | | At | Signature | + + + + + + | X-RAY | STUDY: HI CHEST 1 VIEW | | | | [...] | | | | | from the Luke. | | | | | | There is anNG tube | | | | | | with side port at GE | | | | | | junction better | | | | | [...] | | | | | the upper lobes. | | | | | | There ispulmonary | | | | | | vascular indistinctness | | | | | | bilaterally. the osseous | | | | | | structuresare | | | | | | unremarkable. | | | | | | Cardiomediastinal | | | | | | silhouette is normal. | | | | | | IMPRESSION: Bilateral | | | | | | pulmonary vascular | | | | | | [...] | | | | | | Ezio Bautista | | | | | | MDAuthor: [...] | | | | | signed / Ezio | | | | | [...] | | | | Until 10/12/12 at 2015, mild | | | | | | [...] | +---+---+ + +-------+ +---------+---+---+ | albuterol (davis PROVENHOPE, | Given | 10/09/19 | 4 puffs | | | | VENTOLIN) 90 mcg/actuation | | 13 6:00 | | | | | inhaler 4 Puff 4 puff, | | PM PST | | | | | inhalation, EVERY 4 HOURS, First | | | | | | | dose on [facility] 10/09/12 at 1999, | | | | | | | Until Discontinued | | | | | | + +-------+ +---------+---+---+ +---+---+ | | | +---+---+ + +-------+ +---------+---+---+ | albuterol (maurya PROVENTIL, | Given | 10/11/19 | 4 puffs | | | | VENTOLIN) 90 mcg/actuation | | 13 3:13 | | | | | inhaler 4 Puff 4 puff, | | AM PST | | | | | inhalation, EVERY 4 HOURS | | | | | | | NEEDED, Starting Sat10/10/12 at | | | | | | [...] | | | | | dose, Starting Sat10/09/12 at | | | | | | | 1329, Until Sat10/09/12 at 1336 | | | | | [...] | +---+---+ + +-------+ +--------+---+---+ | clindamycin (davis JAIMES) | Given | 10/12/19 | 300 mg | | | | capsule 300 mg 300 mg, oral, | | 13 3:00 | | | | | EVERY 6 HOURS, 26 doses, First | | PM PST | | | | | dose on Sat10/09/12 at 1800, Last | | | | | | | dose on 10/15/12 at 2200 | | | | | [...] mg 80 mg, intravenous, ONCE, | | 13 8:26 | | | | | dose, 10/06/12 at 1945 | | PM PST | | | | + +---------+ +-------+--------+---+ +---+---+ | | | +---+---+ + +---------+ +---------+ +---+ | esomeprazole (aka NEXIUM) IV | New Bag | 10/07/19 | 8 mg/hr | 10 mL/hr | | | infusion 8 mg/hr (rounded to | 13 6:40 | | | | | mL/hr), [...] | | 8 HOURS, First dose on Sat | | AM PST | | | [...] | | | | | NEEDED, Starting Sat10/07/12 at | | | | | | | 0229, Until Sat10/07/12 at 0657, | | | | | [...] | | | | | NEEDED, Starting Sat10/07/12 at | | | | | | [...] + +-------+ +--------+---+---+ | labetalol (aka NORMODYNE) oral | Given | 10/11/19 | 150 mg | | | | dose 150 mg 150 mg, oral, EVERY | | 13 4:16 | | | | | 6 HOURS, First dose (after last | | AM PST | | | | | modification) on Sat10/10/12 at | | | | | | | 1500, Until Discontinued | | | | | [...] | | TWICE DAILY, First dose on Sat | | PM [...] | | EVERY 6 HOURS, First dose (after | | PM PST | | | | | last modification) on 10/07/12 | | | | | | | at 2100, Until Discontinued | | | | | | + + + +--------+---+---+ +---+---+ | | | +---+---+ + +-------+ +--------+---+---+ | labetalol (aka NORMODYNE) | Given | 10/10/19 | 300 mg | | | | tablet 300 mg 300 mg, oral, | | 13 9:09 | | | | | EVERY 6 HOURS, First dose (after | | AM PST | | | | | last modification) on Sat10/08/12 | | | | | | | at 0300, Until Discontinued | | | | | [...] | | | 0-2 mg/min (rounded to 0 | | 13 6:51 | mg/min | [...] | | | | Starting 10/07/12 at 0730, | | | | | | | Until 10/07/12 at 2259 | | | | | [...] | | | | | First dose (after last | | AM PST | | | | | modification) on 10/11/12 at | | | | | | | 0900, Until [...] | | | | DAILY, First dose (after last | | AM PST | | | | | modification) on [facility] 10/11/12 at | | | | | | | 1030, Until Discontinued | | | | [...] +---+---+ + +---------+ +--------+--------+---+ | metroNIDAZOLE (aka FLAGYL) IV | New Bag | 10/09/19 | [...] | | | | | 10/07/12 at 2023 | | | | | | + [...] | | | 1749, Until 10/12/12 at 2016, | | | [...] + + + + +--------+---+ | propofol (davis SUÁREZ) | Rate/Dos | 10/07/19 | 35 | [...] | +---+---+ + +-------+ +---+---+---+ | senna-docusate (aka SENOKOT S) | Given | 10/07/19 | | [...] | +---+---+ + +-------+ +------+---+---+ | zolpidem (davis MANSFIELD) tablet 5 | Given | 10/11/19 | 5 mg | | | | mg 5 mg, oral, AT BEDTIME | | 13 9:00 | | | | | NEEDED, Starting 10/08/12 at | | PM PST | | | | | 2211, Until 10/12/12 at 2015, | | | [...]
--- OUTSIDE RECORDS SUMMARY | ~2020-06-10 | XMS | Clinical Summary ---
Demographics + + + | Address | [address] | | | [place] [address] | + + + | Home Phone | | + + + | Preferred Language | Unknown | + + + | Marital Status | Single | + + + | Latter-Day Affiliation | NON | + + + [...] Team Providers + +------+ + | Care Industrial Ecologist Name | Role | Phone | + +------+ + | Arely Rojo MD | PCP | | + +------+ + Source Comments [facility] is fully live on both EpicCare Ambulatory and EpicCare InPatient.[facility] Allergies + + + + [...] on file | | + + + Last Filed Vital Signs + [...] + + Plan of Treatment + + +-------+ + | Health Maintenance | Due Date | Last | Comments | | | | Done | | + + +-------+ + | Pneumococcal | | | | | vaccination (1 of 1 | 7 | | | | - PPSV23) | | | | + + +-------+ + | Influenza (Flu) | | | | | vaccination (#1) | 0 | | | + + +-------+ + Results Not on filefrom Last 3 Months Insurance + +--------+ +--------+-------+---------+--------+ | Payer | Benefi | Subscriber | Effect | Phone | Address | Type | | | t Plan | ID | ayad | | | | | | / | | Dates | | | | | | Group | | | | | | + +--------+ +--------+-------+---------+--------+ | EDUCATION RESEARCH ANALYST MEDICAID | EDUCATION RESEARCH ANALYST | [id number] | | | | Medica | | [...] | | al/Fam | | 1979 | [address] | [place] [address] | | | meli | | | 0 (Home) | | + +--------+ +--------+ + + | Imani Epstein | Global | Self | [birth year] | | [address] | | | OB | | 1979 | [id number] | [place] [address] | | | | | | 0 [...]
--- OUTSIDE RECORDS SUMMARY | 2020-06-10 13:14 | XMS ---
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 Care History Medical/Surgical 11/21/2018 [facility] - PATIENT HAS AN APT WITH DR PATIÑO ON 03/10/19. - PATIENT TO ESTABLISH CARE WITH DR HOLLAND ON 12/26/2018. - CURRENT PCP IS FAINA FARFAN. - Patient is currently established with [facility]. If patient is seen in the ED during business hours. Please contact CHWs at [facility]. - Care Recommendation: This patient has had 5 or more Emergency Department visits in the last 12 months.\T\nbsp; Patient requires education on the scope and purpose of the ED as an acute care provider not a Primary Care Provider and should not be utilized for chronic conditions.\T\nbsp; These are guidelines and the provider should exercise clinical judgment when providing care. EPerlita VISIT COUNT (12 MO.) 1 [facility] TOTAL 1 NOTE: Visits indicate total known visits. ED/UCC VISIT TRACKING (12 MO.) 06/10/2020 13:12 [facility] [place] TYPE: Emergency COMPLAINT: - SOB INPATIENT VISIT TRACKING (12 MO.) No inpatient visits to display in this time frame [email or web address]
== END ==
LOC: ED 13:11
DX: J45.901 Unspecified asthma with (acute) exacerbation (principal); I11.0 Hypertensive heart disease with heart failure; I50.9 Heart failure, unspecified; F17.200 Nicotine dependence, unspecified, uncomplicated; Z88.0 Allergy status to penicillin; Z88.8 Allergy status to other drugs, medicaments and biological substances; Z79.899 Other long term (current) drug therapy
CPT/HCPCS: 71045; 99284-25; J7512

== ENCOUNTER 2020-07-25 17:34 | Inpatient (IN) | payer OTHER ==
[~2020-07-25] VITALS: Ht 152.4 cm; Wt 100.9 kg
[~2020-07-25 17:34] MED LIST changes: -HYDROCHLOROTHIA25 MG
--- OUTSIDE RECORDS SUMMARY | 2020-07-25 17:36 | XMS ---
PreManage Notification: CHARISSA ROSARIO Security Mental Tester Events No recent Security Events currently on file CRITERIA MET - Group Notification CARE PROVIDERS CORNELIUS FARFAN Physician [employer] 05/30/2018-Current PHONE: [phone] EMILIE REYEZ [facility] 06/13/2020-Current PHONE: [phone] JORGE A PATIÑO [facility] 03/06/2019-Current PHONE: [phone] [place] has no Care Guidelines for this patient. Care History Medical/Surgical 06/13/2020 [facility] - Patient is currently established with [facility]. If patient is seen in the ED during business hours. Please contact [facility] at [facility]. Care Recommendation: If this patient has had 5 or more Emergency Department visits in the last 12 months.\T\nbsp; Patient will require education on the scope and purpose of the ED as an acute care provider not a Primary Care Provider and should not be utilized for chronic conditions.\T\nbsp; These are guidelines and the provider should exercise clinical judgment when providing care. E.D. VISIT COUNT (12 MO.) 2 [facility] TOTAL 2 NOTE: Visits indicate total known visits. ED/UCC VISIT TRACKING (12 MO.) 07/25/2020 17:35 [facility] [place] TYPE: Emergency COMPLAINT: - SHORTNESS OF BREATH 06/10/2020 13:[address] [facility] [place] TYPE: Emergency COMPLAINT: - SOB DIAGNOSES: - Allergy status to penicillin - Nicotine dependence, unspecified, uncomplicated - Allergy status to other drugs, medicaments and biological substances - Unspecified asthma, uncomplicated - Other roasterman (current) drug therapy - Heart failure, unspecified - Hypertensive heart disease with heart failure - Unspecified asthma with (acute) exacerbation - Shortness of breath INPATIENT VISIT TRACKING (12 MO.) No inpatient visits to display in this time frame [id number]
[2020-07-26] MEDS ORDERED: VENTOLIN HFA18 GM INH (08:06)
[2020-07-26] MEDS ORDERED: HYDROCHLOROTHIA25 MG PO (08:06)
[2020-07-26] MEDS ORDERED: LISINOPRIL40 MG PO (08:07)
[2020-07-26] MEDS ORDERED: AMLODIPINE BESYL5 MG PO (08:07)
[2020-07-26] MEDS ORDERED: NYAMYC15 GM TOP (08:08)
[2020-07-26] MEDS ORDERED: ALBUTEROL2.5 MG/3 M INH (09:51)
--- NOTE | 2020-07-26 14:10 | EKG ---
[facility] [address] [place] [address] Signed Sinus tachycardia Possible Left atrial enlargement Borderline ECG When compared with ECG of 26-NOV-2018 09:49, No significant change was found Confirmed by RICHAR MACIEL MD ([id number]) on 07/26/2020 2:10:38 PM Electronically Signed By: RICHAR MACIEL MD 07/26/20 1410 PATIENT NAME: CHARISSA ROSARIO Electrocardiogram DATE OF : [birth year] PHYSICIAN: RICHAR MACIEL MD REPORT #: [id number] REPORT IS CONFIDENTIAL AND NOT TO BE RELEASED WITHOUT AUTHORIZATION
--- NOTE | 2020-07-27 12:50 | PATH ---
[facility] [address] [place], [place] [address] Signed ORDERING PHYSICIAN: Radha Ivory MD PATIENT NAME: CHARISSA ROSARIO GENDER: F : 1980 Prior History: No cases found. SPECIMEN(S): MOLECULAR PATHOLOGY RESULTS: SARS-CoV-2 Not Detected ADDITIONAL NOTES.: The Beatrice Fusion SARS-CoV-2 Assay is a multiplex real-time PCR (RT-PCR) in vitro diagnostic test intended for the qualitative detection of RNA from SARS-CoV-2 from individuals who meet COVID-19 clinical and/or epidemiological criteria. In general, SARS-CoV-2 RNA can be detected during the acute phase of infection. Positive results indicate the presence of SARS-CoV-2 RNA. Clinical correlation with patient history and other diagnostic information is necessary to determine patient infection status. Positive results do not rule out bacterial infection or co-infection with other viruses. Negative results do not preclude SARS-CoV-2 infection and should not be used as the sole basis for patient management decisions. Negative results must be combined with other clinical observations, patient history, and epidemiological information. The Beatrice Fusion SARS-CoV-2 Assay is not yet approved or cleared by the [place] FDA. When there are no FDA-approved or cleared tests available, and other criteria are met, FDA can make tests available under an emergency access mechanism called an Emergency Use Authorization (EUA). The EUA for this test is supported by the Roll Trucker of Health and Human Service's (HHS's) declaration that circumstances exist to justify the emergency use of in vitro diagnostics for the detection and/or diagnosis of the virus that causes COVID-19. This EUA will remain in effect for the duration of the COVID-19 declaration justifying emergency of IVDs, unless it is terminated or revoked by FDA, after which the test may no longer be used. The Beatrice Fusion SARS-CoV-2 Assay is for use only under EUA PATIENT NAME: CHARISSA ROSARIO PATHOLOGY DATE OF : [birth year] REPORT #: [id number] PHYSICIAN: MARIELA OLSON PCP: EMILIE REYEZ MD REPORT IS CONFIDENTIAL AND NOT TO BE RELEASED WITHOUT AUTHORIZATION [facility] [address] [place] [id number] Signed in laboratories certified under the Clinical Laboratory Improvement Amendments of 1988 (CLIA) to perform high complexity tests. [facility] is certified under CLIA to perform high complexity clinical laboratory testing. PERFORMING LABORATORY.: Molecular testing was performed by [facility] [place] [address] (Academic Affairs Specialist: Mike Feliciano D.O.; CLIA#: [id number]) Diagnostician: System Interface Pathologist Electronically Signed 07/27/2020 Copies: ~ PATIENT NAME: CHARISSA ROSARIO PATHOLOGY DATE OF : [birth year] REPORT #: [id number] PHYSICIAN: MARIELA OLSON PCP: EMILIE REYEZ MD REPORT IS CONFIDENTIAL AND NOT TO BE RELEASED WITHOUT AUTHORIZATION
== END 2020-07-31 10:57 | disposition left against medical advice (07) | DRG 208 ==
LOC: ED 17:34 → CCU 17:36 → ED 17:36 → CCU 17:36 → MS 07-30 11:27
PROVIDERS: ADMIT Internal Medicine; ATTEND Internal Medicine
PROC: 5A1945Z Respiratory Ventilation, 24-96 Consecutive Hours (ICD-10-PCS; 2020-07-26)
PROC: 5A09357 Assistance with Respiratory Ventilation, Less than 24 Consecutive Hours, Continuous Positive Airway Pressure (ICD-10-PCS; 2020-07-26)
PROC: 0BH17EZ Insertion of Endotracheal Airway into Trachea, Via Natural or Artificial Opening (ICD-10-PCS; 2020-07-26)
PROC: 02HV33Z Insertion of Infusion Device into Superior Vena Cava, Percutaneous Approach (ICD-10-PCS; principal; 2020-07-27 08:00)
DX: J96.01 Acute respiratory failure with hypoxia (principal); J18.9 Pneumonia, unspecified organism; J45.21 Mild intermittent asthma with (acute) exacerbation; J96.02 Acute respiratory failure with hypercapnia; Z20.828 Contact with and (suspected) exposure to other viral communicable diseases; J42 Unspecified chronic bronchitis; D72.829 Elevated white blood cell count, unspecified; T38.0X5A Adverse effect of glucocorticoids and synthetic analogues, initial encounter; R04.0 Epistaxis; F41.8 Other specified anxiety disorders; I10 Essential (primary) hypertension; F17.210 Nicotine dependence, cigarettes, uncomplicated; F15.10 Other stimulant abuse, uncomplicated; I16.0 Hypertensive urgency; Z91.19 Patient's noncompliance with other medical treatment and regimen; Z53.29 Procedure and treatment not carried out because of patient's decision for other reasons; Z78.1 Physical restraint status; Z79.899 Other long term (current) drug therapy; Z88.0 Allergy status to penicillin; Z88.8 Allergy status to other drugs, medicaments and biological substances
CPT/HCPCS: 31500; 31720; 36415; 36569; 36600; 71045; 80048; 80053; 80061; 81001; 82803; 83735; 83880; 84484; 85025; 85379; 85610; 85730; 87070; 87205; 93005; 93010; 93306; 94002; 94003; 94640; 94660; 94668; 94760; 96374; 96375; 97116; 97162; 99285-25; C9113; C9803; J0330; J0360; J0456; J0696; J1650; J1940; J2001; J2060; J2250; J2704; J2930; J3370; J3475; J7060; J7121; J7512; Q0177; U0003